=== PATIENT | female | born 1930 | race Caucasian/White ===

== ENCOUNTER 2017-05-25 16:08 | Inpatient (IN) | payer OTHER, BC ==
--- NOTE | 2017-05-25 16:44 | PDOC ---
History of Present Illness <Ludmila Guevara - Last Filed: 05/25/17 18:48> - History of Present Illness Initial Comments: 05/25/17 19:08 The patient is a 86 year old female, with a significant past medical history of AFib(on coumadin), hypertension, hypothyroidism, anemia, osteoarthritis, CKD, and GERD, who presents to the emergency department from home s/p mechanical fall at approximately 05:00. The patient reports she was transferring from her wheelchair to her commode, when suddenly her right leg slipped under her left leg, she lost her balance and landed on her right knee. She denies any head trauma, changes in vision, or LOC. Patient reports associated right knee pain, but denies any right hip pain, neck or back pain. Patient reports she was unable to walk after her fall, and states her son had to help her transfer into her bed after the fall. Patient reports taking pain medications with minimal relief. Patient reports she is able to ambulate with a walker at baseline. She denies any fever, chills, headache, dizziness, or lightheadedness. She denies any chest pain, shortness of breath, diaphoresis, palpitations, leg pain, or lower extremity edema. She denies any recent travel or sick contacts. Allergies: Latex Past Surgical History: Right hip replacement, right total knee replacement Social History: Former smoker. No ETOH or recreational drug use. PCP: Dr. Ceron <Gatito Kahn - Last Filed: 05/25/17 20:02> - General Chief Complaint: Injury Stated Complaint: FALL Time Seen by Provider: 05/25/17 16:23 Past History <Ludmila Guevara - Last Filed: 05/25/17 18:48> - Past Medical History Anemia: No Asthma: No Cancer: No Cardiac Disorders: Yes (ATRIAL FIBRILLATION) CVA: No COPD: No CHF: No Dementia: (FORGETFUL AT TIMES,) Diabetes: No GI Disorders: No Disorders: No HTN: Yes Hypercholesterolemia: No Liver Disease: No Seizures: No Thyroid Disease: No - Surgical History Abdominal Surgery: No Appendectomy: No Cardiac Surgery: No Cholecystectomy: No Lung Surgery: No Neurologic Surgery: No Orthopedic Surgery: Yes (right total knee replacement) - Immunization History Td Vaccination: (UNKNOWN) Immunization Up to Date: No - Psycho/Social/Smoking Cessation Hx Anxiety: No Suicidal Ideation: No Smoking Status: Yes Smoking History: Never smoked Years of Tobacco Use: 30 Have you smoked in the past 12 months: No Number of Cigarettes Smoked Daily: 2 'Breaking Loose' booklet given: 08/15/15 Hx Alcohol Use: No Drug/Substance Use Hx: No Substance Use Type: None Hx Substance Use Treatment: No <Nassef,Yomna - Last Filed: 05/25/17 20:02> - Past Medical History Allergies/Adverse Reactions: Allergies Allergy/AdvReac Type Severity Reaction Status Date / Time latex Allergy Intermediate Itching Verified 05/25/17 16:48 AND RASH Home Medications: Ambulatory Orders Acetaminophen [Tylenol] 650 mg PO Q4HWA PRN 05/25/17 Amlodipine Besylate [Norvasc -] 10 mg PO DAILY 05/25/17 Bacitracin - [Bacitracin Topical Ointment -] 1 applic TP ASDIR 05/25/17 Docusate Sodium 200 mg PO DAILY 05/25/17 Escitalopram Oxalate [Lexapro -] 5 mg PO DAILY 05/25/17 Ferrous Sulfate [Feosol] 325 mg PO DAILY 05/25/17 Furosemide [Lasix -] 40 mg PO DAILY 05/25/17 Hydralazine HCl [Apresoline -] 25 mg PO DAILY 05/25/17 Levofloxacin [Levaquin -] 250 mg PO DAILY 05/25/17 Multivit-Min/FA/Lycopen/Lutein [Centrum Silver Tablet] 1 each PO DAILY 05/25/17 Potassium Chloride 40 meq PO DAILY 05/25/17 Sennosides/Docusate Sodium [Senna Laxative Tablet] 1 each PO BID 05/25/17 Spironolactone [Aldactone] 25 mg PO DAILY 05/25/17 Trazodone HCl 50 mg PO DAILY 05/25/17 Warfarin Sodium 1 mg PO ASDIR 05/25/17 Warfarin Sodium [Coumadin] 6 mg PO DAILY 05/25/17 Zolpidem Tartrate [Ambien] 10 mg PO DAILY 05/25/17 Review of Systems - Review of Systems Comments:: 05/25/17 19:09 GENERAL/CONSTITUTIONAL: No fever or chills. No weakness. HEAD, EYES, EARS, NOSE AND THROAT: No change in vision. No ear pain or discharge. No sore throat. CARDIOVASCULAR: No chest pain or shortness of breath. RESPIRATORY: No cough, wheezing, or hemoptysis. GASTROINTESTINAL: No nausea, vomiting, diarrhea or constipation. GENITOURINARY: No dysuria, frequency, or change in urination. MUSCULOSKELETAL: Yes: +Right knee pain. No other joint or muscle swelling or pain. No neck or back pain. SKIN: No rash NEUROLOGIC: No headache, vertigo, loss of consciousness, or change in strength/ sensation. ENDOCRINE: No increased thirst. No abnormal weight change. HEMATOLOGIC/LYMPHATIC: No anemia, easy bleeding, or history of blood clots. ALLERGIC/IMMUNOLOGIC: No hives or skin allergy. <NassedarrenYomna - Last Filed: 05/25/17 20:02> *Physical Exam - Vital Signs Last Vital Signs Temp Pulse Resp BP Pulse Ox 98.1 F 76 16 114/67 98 05/25/17 16:40 05/25/17 16:40 05/25/17 16:40 05/25/17 16:40 05/25/17 16:40 <Ludmila Guevara - Last Filed: 05/25/17 18:48> - Physical Exam Comments: 05/25/17 19:09 GENERAL: Awake, alert, and fully oriented, in no acute distress HEAD: No signs of trauma EYES: PERRLA, EOMI, sclera anicteric, conjunctiva clear ENT: Auricles normal inspection, hearing grossly normal, nares patent, oropharynx clear without exudates. Moist mucosa NECK: Normal ROM, supple, no lymphadenopathy, JVD, or masses LUNGS: Breath sounds equal, clear to auscultation bilaterally. No wheezes, and no crackles HEART: Regular rate and rhythm, normal S1 and S2, no murmurs, rubs or gallops ABDOMEN: Soft, nontender, normoactive bowel sounds. No guarding, no rebound. No masses EXTREMITIES: large deformity noted distal to the R knee, no open wounds, DP and PT pulses weakly palpable, but audible on doppler and symmetric. Normal range of motion, no edema. No clubbing or cyanosis. No cords, erythema, or tenderness. NEUROLOGICAL: Normal speech, cranial nerves intact, negative pronator drift, 5/ 5 strength UE and LLE, 5/5 dorsi and plantar flexion in RLE, flexion in knee deferred, 5/5 in R hip extension with full ROM, normal sensation to light touch in all 4 extremities, normal cerebellar exam, normal reflexes and tone, gait deferred SKIN: 2x3cm ecchymosis to the right lower back. Warm, Dry, normal turgor, no rashes or lesions noted. <Gatito Kahn - Last Filed: 05/25/17 20:02> ED Treatment Course - LABORATORY CBC & Chemistry Diagram: 05/25/17 17:00 05/25/17 17:00 - ADDITIONAL ORDERS Additional order review: Laboratory Results 05/25/17 05/25/17 05/25/17 17:00 17:00 17:00 INR 2.74 H D PTT (Actin FS) Sodium Potassium Chloride Carbon Dioxide Anion Gap BUN Creatinine Creat Clearance w eGFR Random Glucose Calcium Magnesium 2.1 Total Bilirubin AST ALT Alkaline Phosphatase Total Protein Albumin Blood Type A POSITIVE Antibody Screen Negative 05/25/17 05/25/17 17:00 17:00 INR PTT (Actin FS) 53.1 H D Sodium 135 L Potassium 5.5 H D Chloride 106 Carbon Dioxide 22 Anion Gap 7 L BUN 39 H D Creatinine 1.8 H D Creat Clearance w eGFR 26.68 Random Glucose 131 H D Calcium 9.1 Magnesium Total Bilirubin 0.7 D AST 30 D ALT 20 D Alkaline Phosphatase 104 D Total Protein 7.0 D Albumin 3.6 D Blood Type Antibody Screen 05/25/17 17:00 RBC 4.46 D MCV 86.4 MCHC 33.1 RDW 15.0 MPV 7.4 L Neutrophils % 91.5 H D Lymphocytes % 3.0 L D Monocytes % 5.0 D Eosinophils % 0.1 D Basophils % 0.4 - RADIOLOGY Radiograph Interpretation: 05/25/17 18:48 EXAM: X-Ray Hip and Pelvis/ Right leg INTERPRETED BY: Dr. Kahn IMPRESSION: Right tibia fracture <Ludmila Guevara - Last Filed: 05/25/17 18:48> - LABORATORY CBC & Chemistry Diagram: 05/25/17 17:00 05/25/17 17:00 <Gatito Kahn - Last Filed: 05/25/17 20:02> Medical Decision Making - Medical Decision Making 05/25/17 18:34 First call placed to Dr. Gutierrez at 18:35. Awaiting call back. Case discussed with Dr. Gutierrez at 18:39. First call placed to Dr. Grayson's answering service at 16:41. <Ludmila Guevara - Last Filed: 05/25/17 18:48> - Medical Decision Making 05/25/17 17:09 86-year-old female with multiple medical problems including atrial fibrillation on Coumadin presents with leg pain after she slipped and fell. Exam with large deformity just distal to her R knee replacement. Pt is otherwise neurovascularly intact. Likely closed tib-fib fx. -labs -XR -pain control -wade -ortho c/s -likely admit 05/25/17 19:17 XR with fracture. Spoke with Dr. Gutierrez who will take pt to OR tomorrow AM. Hospitalist microblogged for admission, awaiting call back 05/25/17 19:[address] Rios who will assume care of the patient. <Gatito Kahn - Last Filed: 05/25/17 20:02> *DC/Admit/Observation/Transfer - Attestations Scribe Attestion: 05/25/17 18:34 Documentation prepared by Ludmila Guevara, acting as quality engineer medical device for Gatito Kahn MD. <Ludmila Guevara - Last Filed: 05/25/17 18:48> - Discharge Dispostion Admit: Yes - Attestations Physician Attestion: 05/25/17 20:02 I, Dr. Gatito Kahn MD, attest that this document has been prepared under my direction and personally reviewed by me in its entirety. I further attest, that it accurately reflects all work, treatment, procedures and medical decision -making performed by me. <Gatito Kahn - Last Filed: 05/25/17 20:02> Diagnosis at time of Disposition: Fracture of tibia Qualifiers: Encounter type: initial encounter Tibia location: proximal Fracture type: closed Fracture morphology: unspecified fracture morphology Laterality: right Qualified Code(s): S82.101A - Unspecified fracture of upper end of right tibia, initial encounter for closed fracture - Discharge Dispostion Condition at time of disposition: Stable
[2017-05-25 17:31] LABS: BASOPHIL 0.4 % (0-2.0); EOSINOPHIL 0.1 % (0-4.5); MCH 28.6 pg (25.7-33.7); MCHC 33.1 g/dl (32.0-36.0); MEAN CELL VOLUME 86.4 fl (80-96); MEAN PLT VOLUME 7.4 fl (7.5-11.1); NEUTROPHILS 91.5 % (42.8-82.8); PLATELET COUNT 227 K/MM3 (134-434); WHITE BLOOD COUNT 15.3 K/mm3 (4.0-10.0)
[2017-05-25 17:51] LABS: INR 2.74 (0.82-1.09); PROTHROMBIN TIME (PATIENT) 30.8 SEC (9.98-11.88)
[2017-05-25 18:20] LABS: ALBUMIN 3.6 g/dl (3.4-5.0); ALK PHOS 104 U/L (45-117); ANION GAP 7 (8-16); BILIRUBIN,TOTAL 0.7 mg/dL (0.2-1.0); CALCIUM 9.1 mg/dL (8.5-10.1); CO2 22 mmol/L (21-32); CREATININE 1.8 mg/dL (0.55-1.02); GLUCOSE,RANDOM 131 mg/dL (74-106); SGPT/ALT 20 U/L (12-78)
[2017-05-25 18:24] LABS: SGOT/AST 30 U/L (15-37)
[2017-05-25 18:39] LABS: PLATELET COMMENT2 NO CLOTTING DETECTED; PLATELET ESTIMATE ADEQUATE (NORMAL)
[2017-05-25] MEDS ORDERED: ONDANSETRON 4 MG/2 ML VIAL IVPB PRN (19:21)
--- NOTE | 2017-05-25 19:26 | HP ---
Admitting History and Physical - Admission Chief Complaint: knee pain/ fx, fall History of Present Illness: 86 year old female, with a significant past medical history of AFib(on coumadin) , hypertension, hypothyroidism, anemia, osteoarthritis, CKD, and GERD, who presents to the emergency department from home s/p mechanical fall at approximately 05:00. Denies hitting head or lOC. Reports pain to Right leg 4-5/ 10 exc with movement. Denies sob, cp, heart palps, n/v/f/c. Denies blood in stools or urine. Denies hx of cva, DC, chf. PMH/PSH: AFib(on coumadin), hypertension, hypothyroidism, anemia, osteoarthritis , CKD, and GERD, Right knee arthroplasty, femur fx repair, Right 2nd toe bunion surgery. Social- Former smoker, denies alcohol. Lives alone Famhx - NC Ros neg except for hpi PCP- Dr Ceron, angelique Cards- Dr. Muhammad Pex Gen- in nad alert Hent- at/nc, carisa, neck supple, trachea midline Resp- lungs ctab, no cough, no cyanosis, no rales, no ronchi Cards- s1s2 heard, no JVD, irreg rhythm, palpable pedeal pulses jocelin Skin- erythema to right lower leg, skin warm jocelin feet Musk- deformity to right casarez, right casarez swelling and redness. normal bue arom. diminished right knee arom. normal flexion ext of right ankle. neuro- sensation intact jocelin lowr ext, speech clear, no seizures, cn 2-12 grossly intact... Psych- cooperative, no agitation Prob list R tib fracture afib on coumadin htn ckd right knee arthroplasty leukocytosis hyperkalemia imaging cxr reviewed knee x ray reviewed pelvis x ray reviewed A/p-86 year old female, with a significant past medical history of AFib(on coumadin), hypertension, hypothyroidism, anemia, osteoarthritis, CKD, and GERD, who presents s/p mechanical fall, right knee pain and tibia fracture. 1. R tibia fracture s/p mechanical fall Right knee x ray with tibia fracture ortho consult pain control likely OR so will hold coumadin leg elevation monitor neurovascular status 2. afib on coumadin will hold given likely OR monitor INR given 5mg vitamin K 3. Htn (stable) B/P acceptable Hold diuretics 4. Leukocytosis ? stress v infection Monitor labs f/u Uacs Cxr looks ok by my eye 5. Mild Hyperkalemia ? 2/2 meds Hold home Aldactone and supplemental K+ Recheck BMP at 11P tonight 6. ?Amara on CKD possibly related to diuretics Cr baseline appears to be ~1.1- 1.4 Monitor labs Check Urine lytes Hold Diuretics Gentle hydration 7. ?UTI Asymptomatic bacteruria Start CTX Await ucs DVT prophy SCD, hold chemoprophy 2/2 anticipatory surgery FEN NPO after midnight dispo- await further input from ortho. needs > 2mn stay for tibia fracture - Past Medical History Cardiovascular: Yes: AFIB, Aneurysm, HTN, Hyperlipdemia Musculoskeletal: Yes: Chronic low back pain Endocrine: Yes: Hypothyroidism - Past Surgical History Past Surgical History: Yes: Joint Replacement - Smoking History Smoking history: Never smoked Have you smoked in the past 12 months: No Aproximately how many cigarettes per day: 2 - Alcohol/Substance Use Hx Alcohol Use: No History of Substance Use: reports: None - Social History ADL: Independent History of Recent Travel: No Home Medications - Allergies Allergies/Adverse Reactions: Allergies Allergy/AdvReac Type Severity Reaction Status Date / Time latex Allergy Intermediate Itching Verified 05/25/17 16:48 AND RASH - Home Medications Home Medications: Ambulatory Orders Bacitracin - [Bacitracin Topical Ointment -] 1 applic TP ASDIR 05/25/17 Furosemide [Lasix -] 40 mg PO DAILY 05/25/17 Hydralazine HCl [Apresoline -] 25 mg PO DAILY 05/25/17 Multivit-Min/FA/Lycopen/Lutein [Centrum Silver Tablet] 1 each PO DAILY 05/25/17 Spironolactone [Aldactone -] 25 mg PO DAILY 05/25/17 Zolpidem Tartrate [Ambien] 10 mg PO DAILY 05/25/17 Acetaminophen [Tylenol .Regular Strength -] 650 mg PO Q4HWA PRN #30 tablet 05/27 Amlodipine Besylate [Norvasc -] 10 mg PO DAILY tablet 05/27/17 Ceftriaxone [Rocephin -] 1 gm IVPB DAILY vial 05/27/17 Docusate Sodium [Colace -] 200 mg PO DAILY #30 cap 05/27/17 Escitalopram Oxalate [Lexapro -] 5 mg PO DAILY #30 tablet 05/27/17 Ferrous Sulfate [Feosol] 325 mg PO DAILY #30 tab 05/27/17 Metoprolol Succinate [Toprol XL -] 25 mg PO DAILY #30 tab 05/27/17 Ondansetron Injection [Zofran Injection] 4 mg IVPB Q4H PRN #10 vial 05/27/17 Oxycodone HCl [Roxicodone -] 5 mg PO Q4H PRN #10 tablet NS MDD 4 05/27/17 Pantoprazole Sodium [Protonix -] 40 mg PO DAILY #30 tab 05/27/17 Sennosides/Docusate Sodium [Pericolace -] 1 tablet PO BID #30 tablet 05/27/17 Trazodone HCl [Desyrel -] 50 mg PO HS #30 tablet 05/27/17 Family Disease History - Family Disease History Family Disease History: Heart Disease: Mother Physical Examination Vital Signs: Vital Signs Temperature 98.1 F 05/25/17 16:40 Pulse Rate 76 05/25/17 16:40 Respiratory Rate 16 05/25/17 16:40 Blood Pressure 114/67 05/25/17 16:40 O2 Sat by Pulse Oximetry (%) 98 05/25/17 16:40 Labs: CBC, BMP 05/25/17 17:00 05/25/17 17:00 Visit type - Emergency Visit Emergency Visit: Yes ED Registration Date: 05/25/17 Care time: The patient presented to the Emergency Department on the above date and was hospitalized for further evaluation of their emergent condition. - New Patient This patient is new to me today: Yes Date on this admission: 05/29/17 - Critical Care Critical Care patient: No
[2017-05-25] MEDS ORDERED: SODIUM CHLORIDE 1,000 ML IV SCH (19:45)
[2017-05-25 19:47] LABS: URINE APPEARANCE CLOUDY; URINE BILIRUBIN NEGATIVE (NEGATIVE); URINE BLOOD 2+ (NEGATIVE); URINE COLOR YELLOW; URINE GLUCOSE (UA) NEGATIVE (NEGATIVE); URINE KETONE NEGATIVE (NEGATIVE); URINE NITRITE NEGATIVE (NEGATIVE); URINE UROBILINOGEN NEGATIVE mg/dL (0.2-1.0)
[2017-05-25 19:48] LABS: URINE LEUK ESTERASE 3+ (NEGATIVE); URINE PROTEIN 2+ (NEGATIVE)
[2017-05-25 19:51] LABS: URINE BACTERIA MANY /hpf (NONE SEEN); URINE MUCUS RARE; URINE RBC 10 /hpf (0-3); URINE WBC 220 /hpf (3-5); YEAST MANY
[2017-05-25] MEDS ORDERED: PHYTONADIONE 5 MG TABLET PO ONE (19:59)
[2017-05-25] MEDS ORDERED: ACETAMINOPHEN 325 MG TABLET (FP) ONE (20:00)
[2017-05-25] MEDS ORDERED: ONDANSETRON 4 MG/2 ML VIAL ONE (20:01)
[2017-05-25] MEDS ORDERED: oxyCODONE HCL 5 MG TABLET ONE (20:01)
[2017-05-25] MEDS: oxyCODONE HCL 5 MG TABLET PO PRN (20:02)
[2017-05-25] MEDS ORDERED: PHYTONADIONE 5 MG TABLET ONE (20:13)
[2017-05-25 22:55] LABS: ANION GAP 9 (8-16); CALCIUM 8.5 mg/dL (8.5-10.1); CO2 20 mmol/L (21-32); CREATININE 1.7 mg/dL (0.55-1.02); GLUCOSE,RANDOM 124 mg/dL (74-106)
[2017-05-25] MEDS ORDERED: QUEtiapine FUMARATE 25 MG TABLET (FP) PO ONE (23:23)
[2017-05-25] MEDS ORDERED: SODIUM POLYSTYRENE SULFONATE 15 GM/60 ML BOTTLE PO ONE (23:26)
[2017-05-25 23:48] VITALS: BMI 28.6
[2017-05-26] MEDS: ACETAMINOPHEN 325 MG TABLET (FP) PO PRN ×4 (00:03→22:39)
[2017-05-26] MEDS: oxyCODONE HCL 5 MG TABLET PO PRN ×4 (00:03→22:39)
[2017-05-26] MEDS ORDERED: CEFTRIAXONE 1 GM in DEXTROSE 5%-WATER - 50 ML IVPB ONE (01:45)
[2017-05-26] MEDS ORDERED: cefTRIAXone SODIUM 1 GM VIAL ONE ×2 (02:53→20:51)
[2017-05-26] MEDS ORDERED: DEXTROSE 5%-WATER - 50 ML IVPB ONE ×2 (02:54→20:51)
[2017-05-26 07:28] LABS: BASOPHIL 0.4 % (0-2.0); EOSINOPHIL 0.5 % (0-4.5); MCH 29.2 pg (25.7-33.7); MCHC 33.7 g/dl (32.0-36.0); MEAN CELL VOLUME 86.6 fl (80-96); MEAN PLT VOLUME 7.1 fl (7.5-11.1); NEUTROPHILS 84.6 % (42.8-82.8); PLATELET COUNT 159 K/MM3 (134-434); RDW 14.8 % (11.6-15.6); WHITE BLOOD COUNT 10.7 K/mm3 (4.0-10.0)
[2017-05-26 07:38] LABS: INR 2.67 (0.82-1.09)
[2017-05-26 08:03] LABS: ANION GAP 9 (8-16); CALCIUM 8.1 mg/dL (8.5-10.1); CO2 23 mmol/L (21-32); CREATININE 1.9 mg/dL (0.55-1.02); GLUCOSE,RANDOM 113 mg/dL (74-106)
[2017-05-26] MEDS: ESCITALOPRAM OXALATE 10 MG TABLET (FP) PO SCH (09:32)
--- NOTE | 2017-05-26 09:47 | EKG ---
Test Reason : Blood Pressure : / mmHG Vent. Rate : 069 BPM Atrial Rate : 090 BPM P-R Int : 000 ms QRS Dur : 080 ms QT Int : 338 ms P-R-T Axes : 000 -17 115 degrees QTc Int : 362 ms POOR DATA QUALITY, INTERPRETATION MAY BE ADVERSELY AFFECTED ATRIAL FIBRILLATION SEPTAL INFARCT , AGE UNDETERMINED ABNORMAL ECG Confirmed by MD KOFFI, AIDA ([id number]) on 05/26/2017 9:47:00 AM Referred By: Confirmed By:AIDA RAIN MD
[2017-05-26 09:50] LABS: URINE CREATININE 57.2 mg/dL (20-320)
--- NOTE | 2017-05-26 10:31 | CONSULT ---
Consult - text type - Consultation Consultation Note: FULL CONSULT DICTATED IMP: RIGHT PERIPROSTHETIC PROXIMAL TIBIAL SHAFT FX PLAN: TRANSFER BACK TO HEALTH SYSTEM FOR DEFINITIVE TREATMENT
[2017-05-26] MEDS ORDERED: ACETAMINOPHEN 325 MG TABLET (FP) PO PRN (10:46)
--- NOTE | 2017-05-26 10:48 | PN ---
Physical Exam: SUBJECTIVE: Patient seen and examined OBJECTIVE: Vital Signs Period Temp Pulse Resp BP Sys/Toro Pulse Ox Last 24 Hr 97.6 F-98.9 F 71-100 18-21 110-129/59-75 97-97 GENERAL: The patient is awake, alert, and fully oriented, in no acute distress. HEAD: Normal with no signs of trauma. EYES: PERRL, extraocular movements intact, sclera anicteric, conjunctiva clear. No ptosis. ENT: Ears normal, nares patent, oropharynx clear without exudates, moist mucous membranes. NECK: Trachea midline, full range of motion, supple. LUNGS: Breath sounds equal, clear to auscultation bilaterally, no wheezes, no crackles, no accessory muscle use. HEART: Regular rate and rhythm, S1, S2 without murmur, rub or gallop. ABDOMEN: Soft, nontender, nondistended, normoactive bowel sounds, no guarding, no rebound, no hepatosplenomegaly, no masses. EXTREMITIES: 2+ pulses, warm, well-perfused, no edema. NEUROLOGICAL: Cranial nerves II through XII grossly intact. Normal speech, gait not observed. PSYCH: Normal mood, normal affect. SKIN: Warm, dry, normal turgor, no rashes or lesions noted Laboratory Results - last 24 hr 05/25/17 05/26/17 05/26/17 22:13 06:00 06:00 WBC 10.7 H D RBC 3.49 L D Hgb 10.2 L D Hct 30.2 L D MCV 86.6 MCH 29.2 MCHC 33.7 RDW 14.8 Plt Count 159 D MPV 7.1 L Neutrophils % 84.6 H Lymphocytes % 8.5 D Monocytes % 6.0 Eosinophils % 0.5 D Basophils % 0.4 INR 2.67 H Sodium 136 Potassium 5.5 H Chloride 107 Carbon Dioxide 20 L Anion Gap 9 BUN 39 H Creatinine 1.7 H Random Glucose 124 H Calcium 8.5 05/26/17 06:00 WBC RBC Hgb Hct MCV MCH MCHC RDW Plt Count MPV Neutrophils % Lymphocytes % Monocytes % Eosinophils % Basophils % INR Sodium 138 Potassium 4.6 Chloride 106 Carbon Dioxide 23 Anion Gap 9 BUN 40 H Creatinine 1.9 H Random Glucose 113 H Calcium 8.1 L Active Medications Generic Name Dose Route Start Last Admin Trade Name Freq PRN Reason Stop Dose Admin Acetaminophen 650 mg 05/25/17 19:22 05/26/17 09:30 Tylenol - PO 650 mg Q4H PRN Administration FEVER OR PAIN Escitalopram Oxalate 5 mg 05/26/17 10:00 05/26/17 09:32 Lexapro - PO 5 mg DAILY EUGENE Administration Sodium Chloride 1,000 mls @ 50 mls/hr 05/25/17 19:45 05/25/17 20:02 Normal Saline - IV 05/26/17 19:45 50 mls/hr ASDIR EUGENE Administration Ceftriaxone Sodium 1 gm/ 50 mls @ 100 mls/hr 05/26/17 20:00 Dextrose IVPB DAILY EUGENE Ondansetron HCl 4 mg 05/25/17 19:21 05/25/17 20:03 Zofran Injection IVPB 4 mg Q4H PRN Administration NAUSEA AND/OR VOMITING Oxycodone HCl 5 mg 05/25/17 19:22 05/26/17 09:32 Roxicodone - PO 5 mg Q4H PRN Administration PAIN ASSESSMENT/PLAN: 86 year-old female with a PMH significant for HTN, afib on coumadin, anemia, hypothyroidism, anemia, osteoarthritis, CKD, and GERD; PSH significant for right knee arthroplasty and right femur fracture repair. Admitted for fractured right tibia.
--- NOTE | 2017-05-26 10:53 | PN ---
Physical Exam: SUBJECTIVE: Patient seen and examined at bedside. Received pain medication a short while ago, feels comfortable. OBJECTIVE: Vital Signs Period Temp Pulse Resp BP Sys/Toro Pulse Ox Last 24 Hr 97.6 F-98.9 F 71-100 18-21 110-129/59-75 97-97 GENERAL: The patient is awake, alert, and fully oriented, in no acute distress. HEAD: Normal with no signs of trauma. EYES: PERRL, extraocular movements intact, sclera anicteric, conjunctiva clear. No ptosis. LUNGS: Breath sounds equal, clear to auscultation bilaterally, no wheezes, no crackles, no accessory muscle use. HEART: Regular rate and rhythm, S1, S2 without murmur, rub or gallop. ABDOMEN: Soft, nontender, nondistended, normoactive bowel sounds, no guarding, no rebound, no hepatosplenomegaly, no masses. RIGHT LOWER EXTREMITY: 2+ DP pulses, warm, well-perfused; leg is angulated and rotated outward at the knee with swelling noted around the knee; 5/5 motor and sensory in toes NEUROLOGICAL: Cranial nerves II through XII grossly intact. Normal speech, gait not observed. Laboratory Results - last 24 hr 05/25/17 05/26/17 05/26/17 22:13 06:00 06:00 WBC 10.7 H D RBC 3.49 L D Hgb 10.2 L D Hct 30.2 L D MCV 86.6 MCH 29.2 MCHC 33.7 RDW 14.8 Plt Count 159 D MPV 7.1 L Neutrophils % 84.6 H Lymphocytes % 8.5 D Monocytes % 6.0 Eosinophils % 0.5 D Basophils % 0.4 INR 2.67 H Sodium 136 Potassium 5.5 H Chloride 107 Carbon Dioxide 20 L Anion Gap 9 BUN 39 H Creatinine 1.7 H Random Glucose 124 H Calcium 8.5 05/26/17 06:00 WBC RBC Hgb Hct MCV MCH MCHC RDW Plt Count MPV Neutrophils % Lymphocytes % Monocytes % Eosinophils % Basophils % INR Sodium 138 Potassium 4.6 Chloride 106 Carbon Dioxide 23 Anion Gap 9 BUN 40 H Creatinine 1.9 H Random Glucose 113 H Calcium 8.1 L Active Medications Generic Name Dose Route Start Last Admin Trade Name Freq PRN Reason Stop Dose Admin Acetaminophen 650 mg 05/25/17 19:22 05/26/17 09:30 Tylenol - PO 650 mg Q4H PRN Administration FEVER OR PAIN Acetaminophen 650 mg 05/26/17 10:46 Tylenol - PO Q4HWA PRN PAIN Amlodipine Besylate 10 mg 05/27/17 10:00 Norvasc - PO DAILY [facility] Docusate Sodium 200 mg 05/26/17 11:00 Colace - PO DAILY [facility] Escitalopram Oxalate 5 mg 05/26/17 10:00 05/26/17 09:32 Lexapro - PO 5 mg DAILY EUGENE Administration Sodium Chloride 1,000 mls @ 50 mls/hr 05/25/17 19:45 05/25/17 20:02 Normal Saline - IV 05/26/17 19:45 50 mls/hr ASDIR EUGENE Administration Ceftriaxone Sodium 1 gm/ 50 mls @ 100 mls/hr 05/26/17 20:00 Dextrose IVPB DAILY [facility] Non-Formulary Medication 325 mg 05/27/17 10:00 Ferrous Sulfate [Feosol] PO DAILY [facility] Ondansetron HCl 4 mg 05/25/17 19:21 05/25/17 20:03 Zofran Injection IVPB 4 mg Q4H PRN Administration NAUSEA AND/OR VOMITING Oxycodone HCl 5 mg 05/25/17 19:22 05/26/17 09:32 Roxicodone - PO 5 mg Q4H PRN Administration PAIN Senna/Docusate Sodium 1 tablet 05/26/17 11:00 Pericolace - PO BID EUGENE Trazodone HCl 50 mg 05/27/17 10:00 Desyrel - PO DAILY [facility] ASSESSMENT/PLAN: 86 year-old female with a PMH significant for HTN, afib on coumadin, hypothyroidism, anemia, osteoarthritis, CKD, and GERD, and a PSH signficant for right knee arthroplasty, and right femur fracture repair. Admitted for right periprosthetic proximal tibial shaft fracture. Right periprosthetic proximal tibial shaft fracture --seen and evaluated by Dr. Gutierrez --plan is to transfer to [facility] for surgery --pain presently well-managed with PO pain meds --bowel regimen Acute on chronic renal insufficiency --Cr 1.9, baseline 1.2 --FeNa 1.0% --had been on home Lasix and spironolactone, both on hold --gentle IV fluids --renal consult Hypertension --continue amolodipine Atrial fibrillation on coumadin --INR 2.67; hold coumadin for possible surgery tomorrow Hypothyroidism --according to Dr. Ceron patient has been on meds in the past; not listed on med rec on this admission --f/u TSH level Anemia --Hgb 12.8-->10.2 but but may be dilutional and 10.2 is closer to baseline --continue to monitor Osteoarthritis --stable GERD --protonix Fluids: NS @ 50mL/hr Electrolytes: replete as indicated Nutrition: sodium-controlled; NPO after midnight DVT prophylaxis: INR therapeutic Visit type - Emergency Visit Emergency Visit: Yes ED Registration Date: 05/25/17 Care time: The patient presented to the Emergency Department on the above date and was hospitalized for further evaluation of their emergent condition. - New Patient This patient is new to me today: Yes Date on this admission: 05/26/17 - Critical Care Critical Care patient: No
--- NOTE | 2017-05-26 11:55 | CON.NEP ---
Consult Consult Specialty:: nephrology Reason for Consultation:: ckd/roseanne - History of Present Illness History of Present Illness: 86 year old female, with a significant past medical history of AFib(on coumadin) , hypertension, hypothyroidism, anemia, osteoarthritis, CKD, and GERD, who presents to the emergency department from home s/p mechanical fall at approximately 05:00 yesterday. Denies hitting head or lOC. Reports pain to Right leg 4-5/10 exc with movement. Denies sob, cp, heart palps, n/v/f/c. Denies blood in stools or urine. Denies hx of cva, [place], chf. She says she just fell because she missed a guard rail. Has a history of post op ROSEANNE and was previously told she might need dialysis but she refused. Has no problem urinating. Has had chronic infections and was told she needs to be on a medication for life - History Source History Provided By: Patient, Medical Record - Past Medical History Cardio/Vascular: Yes: AFIB, Aneurysm, HTN, Hyperlipdemia Musculoskeletal: Yes: Chronic low back pain Endocrine: Yes: Hypothyroidism - Past Surgical History Past Surgical History: Yes: Joint Replacement - Alcohol/Substance Use Hx Alcohol Use: No History of Substance Use: reports: None - Smoking History Smoking history: Never smoked Have you smoked in the past 12 months: No Aproximately how many cigarettes per day: 2 - Social History ADL: Independent History of Recent Travel: No Home Medications - Allergies Allergies/Adverse Reactions: Allergies Allergy/AdvReac Type Severity Reaction Status Date / Time latex Allergy Intermediate Itching Verified 05/25/17 16:48 AND RASH - Home Medications Home Medications: Ambulatory Orders Acetaminophen [Tylenol] 650 mg PO Q4HWA PRN 05/25/17 Amlodipine Besylate [Norvasc -] 10 mg PO DAILY 05/25/17 Bacitracin - [Bacitracin Topical Ointment -] 1 applic TP ASDIR 05/25/17 Docusate Sodium 200 mg PO DAILY 05/25/17 Escitalopram Oxalate [Lexapro -] 5 mg PO DAILY 05/25/17 Ferrous Sulfate [Feosol] 325 mg PO DAILY 05/25/17 Furosemide [Lasix -] 40 mg PO DAILY 05/25/17 Hydralazine HCl [Apresoline -] 25 mg PO DAILY 05/25/17 Levofloxacin [Levaquin -] 250 mg PO DAILY 05/25/17 Multivit-Min/FA/Lycopen/Lutein [Centrum Silver Tablet] 1 each PO DAILY 05/25/17 Potassium Chloride 40 meq PO DAILY 05/25/17 Sennosides/Docusate Sodium [Senna Laxative Tablet] 1 each PO BID 05/25/17 Spironolactone [Aldactone] 25 mg PO DAILY 05/25/17 Trazodone HCl 50 mg PO DAILY 05/25/17 Warfarin Sodium 1 mg PO ASDIR 05/25/17 Warfarin Sodium [Coumadin] 6 mg PO DAILY 05/25/17 Zolpidem Tartrate [Ambien] 10 mg PO DAILY 05/25/17 Family Disease History - Family Disease History Family Disease History: Heart Disease: Mother Review of Systems - Review of Systems Constitutional: reports: No Symptoms Eyes: reports: No Symptoms HENT: reports: No Symptoms Neck: reports: No Symptoms Cardiovascular: reports: No Symptoms Respiratory: reports: No Symptoms Gastrointestinal: reports: No Symptoms Genitourinary: reports: No Symptoms Breasts: reports: No Symptoms Reported Musculoskeletal: reports: Back Pain, Joint Pain Integumentary: reports: No Symptoms Neurological: reports: No Symptoms Endocrine: reports: No Symptoms Hematology/Lymphatic: reports: No Symptoms Psychiatric: reports: No Symptoms Nephrology Consult - Height Height: 5 ft 6 in - Weight Weight: 177 lb 4.8 oz - BMI Body Mass Index (BMI): 28.6 - Lab Results CBC,BMP: CBC, BMP 05/26/17 06:00 05/26/17 06:00 Anion Gap: Anion Gap Anion Gap 9 (8-16) 05/26/17 06:00 - Imaging Chest X-ray: Report Reviewed - Physical Examination Vital Signs: Vital Signs Temperature 97.6 F 05/26/17 08:32 Pulse Rate 71 05/26/17 08:32 Respiratory Rate 18 05/26/17 08:40 Blood Pressure 118/59 05/26/17 08:32 O2 Sat by Pulse Oximetry (%) 97 05/26/17 08:40 Constitutional: Yes: Well Nourished, No Distress Eyes: Yes: Conjunctiva Clear HENT: Yes: Atraumatic, Normocephalic Neck: Yes: Supple, Trachea Midline Cardiovascular: Yes: Pulse Irregular Respiratory: Yes: Regular, CTA Bilaterally Gastrointestinal: Yes: Normal Bowel Sounds, Soft Renal/: Yes: WNL Extremities: Yes: WNL Edema: No Integumentary: Yes: WNL Wound/Incision: Yes: Clean/Dry, Well Approximated Neurological: Yes: Alert, Oriented Psychiatric: Yes: Alert, Oriented Assessment/Plan IMPRESSION CKD- proteinuric now but had not been before. Possibly reflecting uti UTI htn s/p Tibial fracture echo from 2014 showed normal EF PLAN agree with ceftriaxone follow up cultures continue hydration cumadin on hold repeat renal sono MV
[2017-05-26] MEDS ORDERED: SODIUM CHLORIDE 1,000 ML IV SCH (12:15)
[2017-05-26] MEDS: SENNOSIDES/DOCUSATE COMBO (SENNA PLUS) TABLET (UD) PO SCH ×2 (12:24→22:36)
[2017-05-26] MEDS: PANTOPRAZOLE 40 MG TABLET (FP) PO SCH (12:24)
[2017-05-26] MEDS: DOCUSATE SODIUM 100 MG CAPSULE (FP) PO SCH (12:24)
--- NOTE | 2017-05-26 14:07 | CONS ---
DATE OF CONSULTATION: 05/26/2017 The patient is an 86-year-old female, well known to me. She is status post multiple fractures, first right hip, which was revised to a right total hip replacement, was subsequently revised to a long stem right hip replacement after a femur fracture, was subsequently revised to a complete femoral replacement after a distal femoral fracture above the total knee replacement. Subsequently it was infected and she was in the ICU for a long time but resolved that. Patient was walking, when she tripped and injured her right leg again, now complaining of pain in that right leg. On physical exam, she has swelling and tenderness in her right proximal tibia with ecchymosis from rotation. No pain in the hip femur, knee. Good motion of the ankle, neurovascularly intact. X-rays show a periprosthetic comminuted proximal tibial shaft fracture below the total femoral replacement component in the tibia with angulation and comminution. IMPRESSION: Fracture as described. PLAN: I will contact, with the family's help, Dr. Welsh at [facility], who did the distal femoral replacement, to arrange for transfer of this patient back to [facility] for possible revision surgery. MARILOU ERICKSON M.D. [id number]
[2017-05-26] MEDS: CEFTRIAXONE 1 GM in DEXTROSE 5%-WATER - 50 ML IVPB SCH (21:02)
[2017-05-26] MEDS ORDERED: traZODone HCL 50 MG TABLET (FP) PO SCH (22:30)
[2017-05-27 07:49] LABS: BASOPHIL 0.5 % (0-2.0); MCH 29.2 pg (25.7-33.7); MCHC 33.2 g/dl (32.0-36.0); MEAN CELL VOLUME 87.8 fl (80-96); MEAN PLT VOLUME 7.8 fl (7.5-11.1); NEUTROPHILS 86.1 % (42.8-82.8); PLATELET COUNT 167 K/MM3 (134-434); RDW 14.8 % (11.6-15.6); WHITE BLOOD COUNT 9.1 K/mm3 (4.0-10.0)
[2017-05-27 08:13] LABS: CALCIUM 8.5 mg/dL (8.5-10.1)
[2017-05-27 08:19] LABS: ALBUMIN 2.7 g/dl (3.4-5.0); ALK PHOS 83 U/L (45-117); ANION GAP 10 (8-16); BILIRUBIN,TOTAL 0.5 mg/dL (0.2-1.0); CO2 22 mmol/L (21-32); CREATININE 1.7 mg/dL (0.55-1.02); GLUCOSE,RANDOM 89 mg/dL (74-106); MAGNESIUM 2.2 mg/dL (1.8-2.4); SGOT/AST 19 U/L (15-37); SGPT/ALT 15 U/L (12-78); TOT PROT 5.9 g/dl (6.4-8.2)
--- NOTE | 2017-05-27 08:58 | PN ---
Progress Note (short form) - Note Progress Note: Ortho Pt seen and examined s/p periprosthetic proximal tibia fx PE- + deformity, + swelling, + ttp limited ROM, nvi a/p Long leg posterior splint applied Pt to be transferred to [facility] d/w DR. Gutierrez
--- NOTE | 2017-05-27 09:12 | PN ---
Progress Note (short form) - Note Progress Note: Patient seen and examined Chart reviewed. Patient known to me from previous outpatient care, but due to her complicated history, has not been back to my office in over a year. Currently supine in bed, alert and appropriate. Denies new hest discomfort or dyspnea Has not had cardiologic follow-up. Labs, radiologic procedures, medications and progress notes reviewed. Awaiting decision regarding possible transfer to [facility] for surgical repair. Selected Entries 05/26/17 05/27/17 21:00 06:00 Temperature 97.8 F Pulse Rate 84 Respiratory 20 Rate Blood Pressure 140/92 O2 Sat by Pulse 97 Oximetry (%) Oxygen Delivery Room Air Method Weight 185 lb Laboratory Tests 05/26/17 05/26/17 05/27/17 06:00 06:00 06:30 WBC 9.1 Hgb 11.0 Hct 33.0 Plt Count 167 INR 2.67 H Sodium Potassium Chloride Carbon Dioxide BUN Creatinine Random Glucose Calcium Magnesium Total Bilirubin AST ALT Alkaline Phosphatase Total Protein Albumin TSH 10.90 H D 05/27/17 06:30 WBC Hgb Hct Plt Count INR Sodium 140 Potassium 4.2 Chloride 108 H Carbon Dioxide 22 BUN 33 H Creatinine 1.7 H Random Glucose 89 D Calcium 8.5 Magnesium 2.2 Total Bilirubin 0.5 D AST 19 D ALT 15 D Alkaline Phosphatase 83 D Total Protein 5.9 L Albumin 2.7 L D TSH Chest Clear Cor Irregular Abd Soft, non-tender No new mass Ext Swelling and ecchymosis right proximal tibial area Neuro No new focal deficit Assessment and Plan New proximal right tibial fracture in the setting of multiple complicated surgical procedures on right leg, in addition to septic joint requiring prolonged antibiotic therapy, including daily oral antibiotic suppression [facility] transfer if feasible Chronic renal insufficiency 33/1.7 Renal note appreciated Ultrasound data reviewed with atrophic left kidney and moderately severe right hydronephrosis Will require urologic assessment ASHD with AFIB Cardiologic re-assessment Currently off of warfarin in preparation for possible surgery May need Lovenox or iv heparin Hypoalbuminemia Likely related to acute/chronic disease as well as nutritional factors Hypothyroid TSH elevated Would likely benefit form low dose levothyroxine replacement therapy HTN Stable HPL Stable Venous insufficiency Monitor Infrarenal AAA Not measured in several years Full extensive problem list as per old charts and office records
[2017-05-27] MEDS ORDERED: morphine CARPU-JECT 2 MG/1 ML DISP.SYRIN IVPUSH ONE (09:15)
[2017-05-27] MEDS ORDERED: amLODIPine BESYLATE 10 MG TABLET (FP) PO SCH (10:00)
[2017-05-27] MEDS ORDERED: cefTRIAXone SODIUM 1 GM VIAL ONE (10:00)
[2017-05-27] MEDS ORDERED: DEXTROSE 5%-WATER - 50 ML IVPB ONE (10:00)
[2017-05-27] MEDS ORDERED: FERROUS SO4 325 MG TABLET (FP) PO SCH (10:00)
[2017-05-27] MEDS ORDERED: traZODone HCL 50 MG TABLET (FP) PO SCH (10:00)
[2017-05-27] MEDS: SENNOSIDES/DOCUSATE COMBO (SENNA PLUS) TABLET (UD) PO SCH (10:07)
[2017-05-27] MEDS: DOCUSATE SODIUM 100 MG CAPSULE (FP) PO SCH (10:07)
[2017-05-27] MEDS: ESCITALOPRAM OXALATE 10 MG TABLET (FP) PO SCH (10:07)
[2017-05-27] MEDS: PANTOPRAZOLE 40 MG TABLET (FP) PO SCH (10:07)
[2017-05-27] MEDS: CEFTRIAXONE 1 GM in DEXTROSE 5%-WATER - 50 ML IVPB SCH (10:11)
--- NOTE | 2017-05-27 13:08 | CON.CARD ---
Consult Consult Specialty:: Cardiology Referred by:: Karan Ceron MD Reason for Consultation:: Pre-operative cardiovascular evaluation - History of Present Illness Chief Complaint: Post fall and right periprosthetic tibial fracture History of Present Illness: 86 year old female, with a significant past medical history of CAD, angina pectoris, diastolic dysfunction, persistent AFib on coumadin, hypertension/HCVD , hypothyroidism, hyperlipidemia, anemia, osteoarthritis, CKD, and GERD, sustained mechanical fall without head trauma or LOC sustaining right periprosthetic proximal tibial shaft fracture and given that she has had previous orthopedic treatment at [facility] awaits transfer for definitive treatment. She denies sob, cp, heart palps, near or true syncope, orthopnea, PND or LE edema. - History Source History Provided By: Patient Limitations to Obtaining History: No Limitations - Past Medical History Cardio/Vascular: Yes: AFIB, Aneurysm, HTN, Hyperlipdemia Musculoskeletal: Yes: Chronic low back pain Endocrine: Yes: Hypothyroidism - Past Surgical History Past Surgical History: Yes: Joint Replacement - Alcohol/Substance Use Hx Alcohol Use: No History of Substance Use: reports: None - Smoking History Smoking history: Never smoked Have you smoked in the past 12 months: No Aproximately how many cigarettes per day: 2 - Social History ADL: Independent History of Recent Travel: No Home Medications - Allergies Allergies/Adverse Reactions: Allergies Allergy/AdvReac Type Severity Reaction Status Date / Time latex Allergy Intermediate Itching Verified 05/25/17 16:48 AND RASH - Home Medications Home Medications: Ambulatory Orders Acetaminophen [Tylenol] 650 mg PO Q4HWA PRN 05/25/17 Amlodipine Besylate [Norvasc -] 10 mg PO DAILY 05/25/17 Bacitracin - [Bacitracin Topical Ointment -] 1 applic TP ASDIR 05/25/17 Docusate Sodium 200 mg PO DAILY 05/25/17 Escitalopram Oxalate [Lexapro -] 5 mg PO DAILY 05/25/17 Ferrous Sulfate [Feosol] 325 mg PO DAILY 05/25/17 Furosemide [Lasix -] 40 mg PO DAILY 05/25/17 Hydralazine HCl [Apresoline -] 25 mg PO DAILY 05/25/17 Levofloxacin [Levaquin -] 250 mg PO DAILY 05/25/17 Multivit-Min/FA/Lycopen/Lutein [Centrum Silver Tablet] 1 each PO DAILY 05/25/17 Potassium Chloride 40 meq PO DAILY 05/25/17 Sennosides/Docusate Sodium [Senna Laxative Tablet] 1 each PO BID 05/25/17 Spironolactone [Aldactone] 25 mg PO DAILY 05/25/17 Trazodone HCl 50 mg PO DAILY 05/25/17 Warfarin Sodium 1 mg PO ASDIR 05/25/17 Warfarin Sodium [Coumadin] 6 mg PO DAILY 05/25/17 Zolpidem Tartrate [Ambien] 10 mg PO DAILY 05/25/17 Family Disease History - Family Disease History Family Disease History: Heart Disease: Mother Review of Systems - Review of Systems Musculoskeletal: reports: Extremity Pain Vital Signs: Vital Signs Temperature 97.8 F 05/27/17 06:00 Pulse Rate 84 05/27/17 06:00 Respiratory Rate 20 05/27/17 09:00 Blood Pressure 140/92 05/27/17 06:00 O2 Sat by Pulse Oximetry (%) 97 05/27/17 09:00 Constitutional: Yes: No Distress, Calm Neck: Yes: Supple Respiratory: Yes: Regular, Diminished Gastrointestinal: Yes: Normal Bowel Sounds, Soft Cardiovascular: Yes: Pulse Irregular JVD: No Carotid Bruit: No Heart Sounds: Yes: S1, S2 Murmur: Yes: Systolic Murmur, Grade 2 Edema: No - Other Data Labs, Other Data: CBC, BMP 05/27/17 06:30 05/27/17 06:30 INR, PTT INR 2.67 (0.82-1.09) H 05/26/17 06:00 Afib @ 69 Ejection Fraction %: LVEF > or = 40 % Imaging - Results Chest X-ray: Report Reviewed (NAD) Problem List - Problems (1) Tibia fracture Code(s): S82.209A - UNSP FRACTURE OF SHAFT OF UNSP TIBIA, INIT FOR CLOS FX Qualifiers: Encounter type: initial encounter Tibia location: proximal Fracture type: closed Fracture morphology: unspecified fracture morphology Laterality: right Qualified Code(s): S82.101A - Unspecified fracture of upper end of right tibia, initial encounter for closed fracture (2) Abdominal aortic aneurysm Code(s): I71.4 - ABDOMINAL AORTIC ANEURYSM, WITHOUT RUPTURE Qualifiers: Presence of rupture: without rupture Qualified Code(s): I71.4 - Abdominal aortic aneurysm, without rupture (3) Atrial fibrillation Code(s): I48.91 - UNSPECIFIED ATRIAL FIBRILLATION Qualifiers: Atrial fibrillation type: chronic Qualified Code(s): I48.2 - Chronic atrial fibrillation (4) HTN (hypertension) Code(s): I10 - ESSENTIAL (PRIMARY) HYPERTENSION Qualifiers: Hypertension type: essential hypertension Qualified Code(s): I10 - Essential (primary) hypertension (5) Hypothyroidism Code(s): E03.9 - HYPOTHYROIDISM, UNSPECIFIED Qualifiers: Hypothyroidism type: unspecified Qualified Code(s): E03.9 - Hypothyroidism, unspecified (6) Diastolic dysfunction without heart failure Code(s): I51.9 - HEART DISEASE, UNSPECIFIED (7) Pre-operative cardiovascular examination Code(s): Z01.810 - ENCOUNTER FOR PREPROCEDURAL CARDIOVASCULAR EXAMINATION (8) Nzgai-zh-[id number] kidney injury Code(s): N17.9 - ACUTE KIDNEY FAILURE, UNSPECIFIED N18.9 - CHRONIC KIDNEY DISEASE, UNSPECIFIED (9) Hydronephrosis Code(s): N13.30 - UNSPECIFIED HYDRONEPHROSIS Qualifiers: Hydronephrosis type: unspecified Qualified Code(s): N13.30 - Unspecified hydronephrosis (10) Urinary tract infection due to extended-spectrum beta lactamase (ESBL) producing Escherichia coli Code(s): N39.0 - URINARY TRACT INFECTION, SITE NOT SPECIFIED A49.8 - OTHER BACTERIAL INFECTIONS OF UNSPECIFIED SITE Z16.12 - EXTENDED SPECTRUM BETA LACTAMASE (ESBL) RESISTANCE Assessment/Plan 1. Post mechanical fall with proximal right periprosthetic tibial fracture in the setting of multiple complicated surgical procedures on right leg, in addition to septic joint requiring prolonged antibiotic therapy, including daily oral antibiotic suppression for transfer to [facility] for further management 2. Pre-operative cardiovascular evaluation 3. CAD angina pectoris 4. Diastolic LV dysfunction with class I-II NYHA classification LV failure, compensated 5. Permanent atrial fibrillation [id number] score of 6 on Coumadin therapy with therapeutic INR 6. Hypertension 7. History of infrarenal AAA 8. Hypothyroidism 9. Anemia 10. Acute on CKD with moderate right hydronephrosis and atrophic left kidney 11. UTI PLAN: 1. Empiric antibiotic course as per the primary team 2. Continue to hold Cozaar, Lasix and Aldactone therapy pending renal fxn stabilization, urology input 3. Change Norvasc to Toprol XL 25 qd hemodynamics permitting 4. Continue to hold Coumadin pending surgery and may have to initiate Heparin as a bridge 5. Await transfer to [facility] for further management as outlined above 6. Given absence of symptoms of acute coronary syndrome, decompensated CHF or malignant arrhythmia, there are no absolute cardiovascular contraindications against proceeding with orthopedic repair of tibial fracture 7. Thank you for consultative opportunity
[2017-05-27 13:41] VITALS: BP 104/68; PULSE 92; TEMP 97.6
--- NOTE | 2017-05-27 14:47 | DS ---
Physical Examination Vital Signs: Vital Signs Temperature 97.6 F 05/27/17 13:36 Pulse Rate 92 H 05/27/17 13:36 Respiratory Rate 20 05/27/17 09:00 Blood Pressure 104/68 05/27/17 13:36 O2 Sat by Pulse Oximetry (%) 97 05/27/17 09:00 Constitutional: Yes: No Distress, Calm Cardiovascular: Yes: Pulse Irregular Respiratory: Yes: CTA Bilaterally Gastrointestinal: Yes: Normal Bowel Sounds, Soft Extremities: Yes: Other (swelling RLE at fracture sight) Neurological: Yes: Alert, Oriented Labs: CBC, BMP 05/27/17 06:30 05/27/17 06:30 Discharge Summary Reason For Visit: TIBIA FRACTURE Current Active Problems Tibia fracture (Acute) Qlodm-na-iawscvi kidney injury (Chronic) Diastolic dysfunction without heart failure (Chronic) Hydronephrosis (Chronic) Hospital Course: Fracture of right tibia in seting of complicated orthopedic history To be transferred to [facility] for further assessment Of note is h/o AFib now off of warfarin and finding of atrophic kidney and moderately severe hydronephrosis in the other kidney H/O AAA as well. Patient has not been seen by me for several years due to the surgical complications Condition: Fair - Instructions Diet, Activity, Other Instructions: as tolerated Disposition: TRANSFER ACUTE CARE/OTHER HOSP - Home Medications Comprehensive Discharge Medication List: Ambulatory Orders Bacitracin - [Bacitracin Topical Ointment -] 1 applic TP ASDIR 05/25/17 Furosemide [Lasix -] 40 mg PO DAILY 05/25/17 Hydralazine HCl [Apresoline -] 25 mg PO DAILY 05/25/17 Multivit-Min/FA/Lycopen/Lutein [Centrum Silver Tablet] 1 each PO DAILY 05/25/17 Spironolactone [Aldactone -] 25 mg PO DAILY 05/25/17 Zolpidem Tartrate [Ambien] 10 mg PO DAILY 05/25/17 Acetaminophen [Tylenol .Regular Strength -] 650 mg PO Q4HWA PRN #30 tablet 05/27 Amlodipine Besylate [Norvasc -] 10 mg PO DAILY tablet 05/27/17 Ceftriaxone [Rocephin -] 1 gm IVPB DAILY vial 05/27/17 Docusate Sodium [Colace -] 200 mg PO DAILY #30 cap 05/27/17 Escitalopram Oxalate [Lexapro -] 5 mg PO DAILY #30 tablet 05/27/17 Ferrous Sulfate [Feosol] 325 mg PO DAILY #30 tab 05/27/17 Metoprolol Succinate [Toprol XL -] 25 mg PO DAILY #30 tab 05/27/17 Ondansetron Injection [Zofran Injection] 4 mg IVPB Q4H PRN #10 vial 05/27/17 Oxycodone HCl [Roxicodone -] 5 mg PO Q4H PRN #10 tablet NS MDD 4 05/27/17 Pantoprazole Sodium [Protonix -] 40 mg PO DAILY #30 tab 05/27/17 Sennosides/Docusate Sodium [Pericolace -] 1 tablet PO BID #30 tablet 05/27/17 Trazodone HCl [Desyrel -] 50 mg PO HS #30 tablet 05/27/17
--- NOTE | 2017-05-27 14:49 | PN ---
Progress Note, Physician History of Present Illness: Pt seen and examined at bedside. She is awake and appears comfortable. - Current Medication List Current Medications: Active Medications Acetaminophen (Tylenol -) 650 mg PO Q4H PRN PRN Reason: FEVER OR PAIN Last Admin: 05/26/17 22:39 Dose: 650 mg Acetaminophen (Tylenol -) 650 mg PO Q4HWA PRN PRN Reason: PAIN Docusate Sodium (Colace -) 200 mg PO DAILY [facility] Last Admin: 05/27/17 10:07 Dose: 200 mg Escitalopram Oxalate (Lexapro -) 5 mg PO DAILY [facility] Last Admin: 05/27/17 10:07 Dose: 5 mg Ferrous Sulfate (Feosol -) 325 mg PO DAILY [facility] Last Admin: 05/27/17 10:07 Dose: 325 mg Ceftriaxone Sodium 1 gm/ (Dextrose) 50 mls @ 100 mls/hr IVPB DAILY [facility] Last Admin: 05/27/17 10:11 Dose: 100 mls/hr Metoprolol Succinate (Toprol Xl -) 25 mg PO DAILY [facility] Ondansetron HCl (Zofran Injection) 4 mg IVPB Q4H PRN PRN Reason: NAUSEA AND/OR VOMITING Last Admin: 05/25/17 20:03 Dose: 4 mg Oxycodone HCl (Roxicodone -) 5 mg PO Q4H PRN PRN Reason: PAIN Last Admin: 05/26/17 22:39 Dose: 5 mg Pantoprazole Sodium (Protonix -) 40 mg PO DAILY [facility] Last Admin: 05/27/17 10:07 Dose: 40 mg Senna/Docusate Sodium (Pericolace -) 1 tablet PO BID [facility] Last Admin: 05/27/17 10:07 Dose: 1 tablet Trazodone HCl (Desyrel -) 50 mg PO HS [facility] Last Admin: 05/26/17 22:36 Dose: 50 mg - Objective Vital Signs: Vital Signs Temperature 97.6 F 05/27/17 13:36 Pulse Rate 92 H 05/27/17 13:36 Respiratory Rate 20 05/27/17 09:00 Blood Pressure 104/68 05/27/17 13:36 O2 Sat by Pulse Oximetry (%) 97 05/27/17 09:00 Constitutional: Yes: Calm Eyes: Yes: Conjunctiva Clear HENT: Yes: Atraumatic Neck: Yes: Supple Cardiovascular: Yes: S1, S2 Respiratory: Yes: CTA Bilaterally Gastrointestinal: Yes: Soft Genitourinary: Yes: WNL Extremities: Yes: Other (right leg pain) Neurological: Yes: Oriented Psychiatric: Yes: Oriented Labs: CBC, BMP 05/27/17 06:30 05/27/17 06:30 INR, PTT INR 2.67 (0.82-1.09) H 05/26/17 06:00 Problem List - Problems (1) Tibia fracture Code(s): S82.209A - UNSP FRACTURE OF SHAFT OF UNSP TIBIA, INIT FOR CLOS FX Qualifiers: Encounter type: initial encounter Tibia location: proximal Fracture type: closed Fracture morphology: unspecified fracture morphology Laterality: right Qualified Code(s): S82.101A - Unspecified fracture of upper end of right tibia, initial encounter for closed fracture (2) Xsghh-bb-[id number] kidney injury Code(s): N17.9 - ACUTE KIDNEY FAILURE, UNSPECIFIED N18.9 - CHRONIC KIDNEY DISEASE, UNSPECIFIED (3) Diastolic dysfunction without heart failure Code(s): I51.9 - HEART DISEASE, UNSPECIFIED (4) Renal insufficiency Code(s): N28.9 - DISORDER OF KIDNEY AND URETER, UNSPECIFIED Assessment/Plan Current Medications Generic Name Dose Route Start Last Admin Trade Name Freq PRN Reason Stop Dose Admin Acetaminophen 650 mg 05/25/17 19:22 05/26/17 22:39 Tylenol - PO 650 mg Q4H PRN Administration FEVER OR PAIN Acetaminophen 650 mg 05/26/17 10:46 Tylenol - PO Q4HWA PRN PAIN Docusate Sodium 200 mg 05/26/17 11:00 05/27/17 10:07 Colace - PO 200 mg DAILY EUGENE Administration Escitalopram Oxalate 5 mg 05/26/17 10:00 05/27/17 10:07 Lexapro - PO 5 mg DAILY EUGENE Administration Ferrous Sulfate 325 mg 05/27/17 10:00 05/27/17 10:07 Feosol - PO 325 mg DAILY EUGENE Administration Ceftriaxone Sodium 1 gm/ 50 mls @ 100 mls/hr 05/26/17 20:00 05/27/17 10:11 Dextrose IVPB 100 mls/hr DAILY EUGENE Administration Metoprolol Succinate 25 mg 05/28/17 10:00 Toprol Xl - PO DAILY EUGENE Ondansetron HCl 4 mg 05/25/17 19:21 05/25/17 20:03 Zofran Injection IVPB 4 mg Q4H PRN Administration NAUSEA AND/OR VOMITING Oxycodone HCl 5 mg 05/25/17 19:22 05/26/17 22:39 Roxicodone - PO 5 mg Q4H PRN Administration PAIN Pantoprazole Sodium 40 mg 05/26/17 11:45 05/27/17 10:07 Protonix - PO 40 mg DAILY EUGENE Administration Senna/Docusate Sodium 1 tablet 05/26/17 11:00 05/27/17 10:07 Pericolace - PO 1 tablet BID EUGENE Administration Trazodone HCl 50 mg 05/26/17 22:30 05/26/17 22:36 Desyrel - PO 50 mg HS EUGENE Administration Impression 1. CKD 2. UTI 3. HTN 4. s/p Tibial fracture 5. right hydronephrosis Plan - cont with abx - repeat UA after UTI resolves to asses proteinuria - urology eval for hydronephrosis - keep wade in place - will follow
[2017-05-28] MEDS ORDERED: METOPROLOL SUCCINATE 25 MG TAB.SR.24H (FP) PO SCH (10:00)
== END 2017-05-27 15:18 | disposition short-term general hospital (02) | DRG 563 ==
LOC: JER 16:08 → JERBED 20:02 → UNDOADMIN 20:40 → J6S 23:21
PROVIDERS: ADMIT Internal Medicine; ATTEND Internal Medicine
PROC: 2W3MX1Z Immobilization of Left Lower Extremity using Splint (ICD-10-PCS; principal; 2017-05-26)
DX: S82.291A Other fracture of shaft of right tibia, initial encounter for closed fracture (principal); M97.11XA Periprosthetic fracture around internal prosthetic right knee joint, initial encounter; N17.9 Acute kidney failure, unspecified; I25.110 Atherosclerotic heart disease of native coronary artery with unstable angina pectoris; N39.0 Urinary tract infection, site not specified; N13.30 Unspecified hydronephrosis; I48.91 Unspecified atrial fibrillation; I12.9 Hypertensive chronic kidney disease with stage 1 through stage 4 chronic kidney disease, or unspecified chronic kidney disease; N18.9 Chronic kidney disease, unspecified; K21.9 Gastro-esophageal reflux disease without esophagitis; E03.9 Hypothyroidism, unspecified; D64.9 Anemia, unspecified; E87.5 Hyperkalemia; D72.828 Other elevated white blood cell count; M54.5 Low back pain; E88.09 Other disorders of plasma-protein metabolism, not elsewhere classified; I72.2 Aneurysm of renal artery; B96.29 Other Escherichia coli [E. coli] as the cause of diseases classified elsewhere; Z96.651 Presence of right artificial knee joint; Z87.891 Personal history of nicotine dependence; Z79.01 Long term (current) use of anticoagulants; W01.0XXA Fall on same level from slipping, tripping and stumbling without subsequent striking against object, initial encounter; Y92.098 Other place in other non-institutional residence as the place of occurrence of the external cause
CPT/HCPCS: 36415; 71010-TC; 72170-TC; 73552-TC-RT; 73562-TC-RT; 73590-TC-RT; 76775-TC; 80048; 80053; 81003; 81015; 82570; 83735; 84300; 84443; 84540; 85025; 85610; 85730; 86850; 86900; 86901; 87086; 87186; 93005; 93010; 99283-25

== ENCOUNTER 2017-06-13 14:30 | Emergency (ER) | payer OTHER, BC ==
[2017-06-13 15:03] VITALS: BMI 26.6
--- NOTE | 2017-06-13 18:22 | PDOC ---
History of Present Illness - General Chief Complaint: Bone Injury Stated Complaint: SENT BY PCP FOR FX Time Seen by Provider: 06/13/17 14:44 History Source: Patient Exam Limitations: No Limitations - History of Present Illness Initial Comments: 06/13/17 18:19 86-year-old female sent over from [facility] for evaluation of her surgical wound and physical appearance of her right lower extremity. Patient had fractured her tibia 2 with the last repair being done one week ago along with a knee replacement hip replacement accompanied by a femur fracture. Patient has no complaints of increasing pain, decreased sensation distally, fever, chills or decreased range of motion. Patient states receives physical therapy at the facility without difficulty. Patient is due for her suture removal in 7 days. Timing/Duration: unsure Severity: mild Associated Symptoms: reports: denies symptoms Past History - Travel Traveled outside of the country in the last 30 days: Yes - Past Medical History Allergies/Adverse Reactions: Allergies Allergy/AdvReac Type Severity Reaction Status Date / Time latex Allergy Intermediate Itching Verified 05/25/17 16:48 AND RASH Home Medications: Ambulatory Orders Bacitracin - [Bacitracin Topical Ointment -] 1 applic TP ASDIR 05/25/17 Furosemide [Lasix -] 40 mg PO DAILY 05/25/17 Hydralazine HCl [Apresoline -] 25 mg PO DAILY 05/25/17 Multivit-Min/FA/Lycopen/Lutein [Centrum Silver Tablet] 1 each PO DAILY 05/25/17 Spironolactone [Aldactone -] 25 mg PO DAILY 05/25/17 Zolpidem Tartrate [Ambien] 10 mg PO DAILY 05/25/17 Acetaminophen [Tylenol .Regular Strength -] 650 mg PO Q4HWA PRN #30 tablet 05/27 Amlodipine Besylate [Norvasc -] 10 mg PO DAILY tablet 05/27/17 Ceftriaxone [Rocephin -] 1 gm IVPB DAILY vial 05/27/17 Docusate Sodium [Colace -] 200 mg PO DAILY #30 cap 05/27/17 Escitalopram Oxalate [Lexapro -] 5 mg PO DAILY #30 tablet 05/27/17 Ferrous Sulfate [Feosol] 325 mg PO DAILY #30 tab 05/27/17 Metoprolol Succinate [Toprol XL -] 25 mg PO DAILY #30 tab 05/27/17 Ondansetron Injection [Zofran Injection] 4 mg IVPB Q4H PRN #10 vial 05/27/17 Oxycodone HCl [Roxicodone -] 5 mg PO Q4H PRN #10 tablet NS MDD 4 05/27/17 Pantoprazole Sodium [Protonix -] 40 mg PO DAILY #30 tab 05/27/17 Sennosides/Docusate Sodium [Pericolace -] 1 tablet PO BID #30 tablet 05/27/17 Trazodone HCl [Desyrel -] 50 mg PO HS #30 tablet 05/27/17 Bisacodyl Suppository [Dulcolax Suppository -] 10 mg RC DAILY 06/13/17 Docusate Sodium [Colace -] 100 mg PO TID 06/13/17 Heparin - 5,000 unit SQ BID 06/13/17 Levothyroxine Sodium [Synthroid] 200 mcg PO DAILY 06/13/17 Nystatin Cream [Mycostatin] 2 applic TP BID 06/13/17 Pantoprazole Sodium [Protonix -] 40 mg PO DAILY 06/13/17 Polyethylene Glycol 3350 [Miralax 255 gm Btl -] 17 grams PO HS 06/13/17 Anemia: No Asthma: No Cancer: No Cardiac Disorders: Yes (ATRIAL FIBRILLATION) CVA: No COPD: No CHF: No Dementia: (FORGETFUL AT TIMES,) Diabetes: No GI Disorders: No Disorders: No HTN: Yes Hypercholesterolemia: No Liver Disease: No Seizures: No Thyroid Disease: Yes (Hypothyroid) - Surgical History Abdominal Surgery: No Appendectomy: No Cardiac Surgery: No Cholecystectomy: No Lung Surgery: No Neurologic Surgery: No Orthopedic Surgery: Yes (Rt.TKR; Rt.Femur surg.w/prosthetic) - Immunization History Td Vaccination: (UNKNOWN) Immunization Up to Date: No - Suicide/Smoking/Psychosocial Hx Smoking Status: Yes Smoking History: Unknown if ever smoked Years of Tobacco Use: 30 Have you smoked in the past 12 months: No Number of Cigarettes Smoked Daily: 2 'Breaking Loose' booklet given: 08/15/15 Hx Alcohol Use: No Drug/Substance Use Hx: No Substance Use Type: None Hx Substance Use Treatment: No Patient Lives Alone: No Lives with/in: [facility] Review of Systems - Review of Systems Able to Perform ROS?: Yes Constitutional: No: Symptoms Reported HEENTM: No: Symptoms Reported Respiratory: No: Symptoms reported Cardiac (ROS): No: Symptoms Reported ABD/GI: No: Symptoms Reported Integumentary: No: Symptoms Reported Neurological: No: Symptoms reported Hematologic/Lymphatic: No: Symptoms Reported *Physical Exam - Vital Signs Last Vital Signs Temp Pulse Resp BP Pulse Ox 98.7 F 88 20 120/52 98 06/13/17 14:44 06/13/17 14:44 06/13/17 14:44 06/13/17 14:44 06/13/17 14:44 - Physical Exam General Appearance: Yes: Nourished, Appropriately Dressed. No: Apparent Distress HEENT: negative: Pale Conjunctivae Respiratory/Chest: positive: Lungs Clear, Normal Breath Sounds. negative: Respiratory Distress, Accessory Muscle Use Cardiovascular: positive: Regular Rhythm, Regular Rate. negative: Murmur Integumentary: positive: Other (Patient with intact sutures to the anterior aspect of right lower extremity expend extending to the mid tib-fib region. Patient also with noted medial lower patellar sutures of the right lower extremity without noted increased warmth, swelling redness or drainage. Noted crusting to surgical wounds) Neurologic: positive: Motor Strength 5/5 (Full straight leg raise). negative: Sensory Deficit ED Treatment Course - RADIOLOGY Radiology Studies Ordered: Category Date Time Status LEG TIB/FIB-RIGHT [RAD] Stat Radiology 06/13/17 16:19 Completed Medical Decision Making - Medical Decision Making 06/13/17 18:03 Patient sent for evaluation of right lower extremity surgical wound. Patient status post tibial repair with hardware placement one week ago at [facility]. Patient has no other complaints at this time. On exam patient has crusting and appropriate healing process to surgical wounds. Patient ordered for a tib-fib x-ray to evaluate hardware placement 06/13/17 18:25 X-ray shows intact hardware and no acute changes when compared to 99. Patient be sent back to do a [facility]. Area was redressed using bacitracin and nonstick dressing and then cover with Kerlix and Ulises wrap. Area should be change every 48 hours using this technique. *DC/Admit/Observation/Transfer Diagnosis at time of Disposition: Encounter for surgical wound dressing change - Discharge Dispostion Disposition: HOME Condition at time of disposition: Good - Referrals Referrals: Khalif Ceron MD [Primary Care Provider] - - Patient Instructions Printed Discharge Instructions: How to Care for a Surgical Wound-Stitches Additional Instructions: Please apply and nonstick dressing after applying bacitracin and cleansing with normal saline at least every 48 hours covering with a Kerlix and Ulises wrap. Please have patient see the surgeon for removal of sutures within 7 days.
[2017-06-13 20:16] VITALS: BP 133/53; PULSE 69; TEMP 98.1
--- NOTE | 2017-06-18 09:48 | EKG ---
Test Reason : Blood Pressure : / mmHG Vent. Rate : 053 BPM Atrial Rate : 258 BPM P-R Int : 000 ms QRS Dur : 096 ms QT Int : 414 ms P-R-T Axes : 000 -04 006 degrees QTc Int : 388 ms ATRIAL FIBRILLATION WITH SLOW VENTRICULAR RESPONSE ABNORMAL ECG WHEN COMPARED WITH ECG OF 25-MAY-2017 16:34, NO SIGNIFICANT CHANGE WAS FOUND Confirmed by MOE OLIVEROS MD ([id number]) on 06/18/2017 9:48:33 AM Referred By: Confirmed By:MOE OLIVEROS MD
== END 2017-06-13 20:17 | disposition home or self-care (01) ==
LOC: JER 14:30
DX: Z48.01 Encounter for change or removal of surgical wound dressing (principal)
CPT/HCPCS: 73590-TC-RT; 93005; 93010; 99281-25

== ENCOUNTER 2018-10-01 13:43 | Inpatient (IN) | payer OTHER ==
--- NOTE | 2018-10-01 15:18 | EKG ---
Test Reason : Blood Pressure : / mmHG Vent. Rate : 071 BPM Atrial Rate : 059 BPM P-R Int : 000 ms QRS Dur : 096 ms QT Int : 362 ms P-R-T Axes : 000 -03 020 degrees QTc Int : 393 ms POOR DATA QUALITY, INTERPRETATION MAY BE ADVERSELY AFFECTED ATRIAL FIBRILLATION ABNORMAL ECG WHEN COMPARED WITH ECG OF 21-MAY-2018 14:41, CRITERIA FOR ANTEROSEPTAL INFARCT ARE NO LONGER PRESENT Confirmed by ORLIN HARPER, KATLYN ([id number]) on 10/01/2018 3:18:06 PM Referred By: Confirmed By:KATLYN ORDAZ MD
--- NOTE | 2018-10-01 15:28 | PDOC ---
History of Present Illness - General Chief Complaint: Wound Stated Complaint: WOUND Time Seen by Provider: 10/01/18 14:46 History Source: Patient, Primary Care Provider Exam Limitations: No Limitations - History of Present Illness Initial Comments: 10/01/18 15:27 Pt is an 87yo F with PMH of Afib (on Coumadin), HTN, CKD, HLD presenting to ED for R leg ulceration x 6 years. Per pt and Per Dr. Ceron, pt has had leg ulcerations with minimal healing for 6 years. She has been taking Bactrim for 6 years for prophylaxis and was on Augmentin for the past 2 weeks. She has been going to Dr. Lacey's office for wound care but she continues to have drainage. Pt endorses pain in the leg. Denies fevers, chills, abdominal pain, n/v/d, numbness/tingling. She has had surgery in the R knee/femur and tibia/fibula. Pt has been unable to ambulate on R leg PMD: Jie Vasc: Abhijit ID: Tyron Past History - Past Medical History Allergies/Adverse Reactions: Allergies Allergy/AdvReac Type Severity Reaction Status Date / Time latex Allergy Intermediate Itching Verified 05/25/17 16:48 AND RASH Home Medications: Ambulatory Orders Zolpidem Tartrate [Ambien] 5 mg PO HS 05/25/17 Sennosides/Docusate Sodium [Pericolace -] 1 tablet PO BID #30 tablet 05/27/17 Levothyroxine Sodium [Synthroid] 100 mcg PO DAILY 06/13/17 Pantoprazole Sodium [Protonix -] 40 mg PO DAILY 06/13/17 Tramadol HCl 50 mg PO DAILY 05/21/18 Warfarin Sodium 4 tab PO HS 05/21/18 Docusate Sodium [Colace -] 100 mg PO TID #60 capsule 05/23/18 Metoprolol Succinate [Toprol Xl] 25 mg PO DAILY 10/01/18 Polyethylene Glycol 3350 [Miralax (For Daily Use) -] 17 gm PO DAILY 10/01/18 Anemia: No Asthma: No Cancer: No Cardiac Disorders: Yes (ATRIAL FIBRILLATION) CVA: No COPD: No CHF: No Dementia: (FORGETFUL AT TIMES,) Diabetes: No GI Disorders: No Disorders: No HTN: Yes Hypercholesterolemia: No Liver Disease: No Seizures: No Thyroid Disease: Yes (Hypothyroid) - Surgical History Abdominal Surgery: No Appendectomy: No Cardiac Surgery: No Cholecystectomy: No Lung Surgery: No Neurologic Surgery: No Orthopedic Surgery: Yes (Rt.TKR; Rt.Femur surg.w/prosthetic) - Immunization History Td Vaccination: (UNKNOWN) Immunization Up to Date: No - Suicide/Smoking/Psychosocial Hx Smoking Status: Yes Smoking History: Current some day smoker Years of Tobacco Use: 30 Have you smoked in the past 12 months: No Number of Cigarettes Smoked Daily: 1 Information on smoking cessation initiated: No 'Breaking Loose' booklet given: 08/15/15 Hx Alcohol Use: No Drug/Substance Use Hx: No Substance Use Type: None Hx Substance Use Treatment: No Review of Systems - Review of Systems Constitutional: No: Chills, Fever, Weakness HEENTM: No: Symptoms Reported Respiratory: No: Cough, Shortness of Breath Cardiac (ROS): No: Chest Pain, Lightheadedness, Palpitations, Syncope ABD/GI: No: Constipated, Diarrhea, Nausea, Vomiting, Abdominal cramping : No: Symptoms Reported Musculoskeletal: Yes: Joint Swelling (R knee swelling), Other (R leg pain) Integumentary: Yes: See HPI, Erythema, Lesions, Rash Neurological: No: Headache, Numbness, Tingling, Weakness *Physical Exam - Vital Signs Last Vital Signs Temp Pulse Resp BP Pulse Ox 98.3 F 72 16 139/61 97 10/01/18 13:48 10/01/18 13:48 10/01/18 13:48 10/01/18 13:48 10/01/18 13:48 - Physical Exam General Appearance: Yes: Appropriately Dressed, Mild Distress, Obese HEENT: positive: EOMI, BRANDI, Normal ENT Inspection Neck: positive: Trachea midline, Supple. negative: Lymphadenopathy (R), Lymphadenopathy (L) Respiratory/Chest: positive: Lungs Clear, Normal Breath Sounds Cardiovascular: positive: Regular Rhythm, Regular Rate, S1, S2. negative: Edema , JVD, Murmur Vascular Pulses: Dorsalis-Pedis (R): 1+, Doralis-Pedis (L): 2+ Gastrointestinal/Abdominal: positive: Normal Bowel Sounds, Soft. negative: Distended, Guarding, Rebound, Tenderness Musculoskeletal: positive: Other (R leg tenderness). negative: CVA Tenderness Extremity: positive: Normal Capillary Refill, Pelvis Stable, Pedal Edema (of R foot), Swelling (R leg from knee down), Erythema (R leg) Integumentary: positive: Other (erythema and ulcerations of R lateral knee, R ankle and calf. with drainage. Does not penetrate muscular layers) Neurologic: positive: poly area supervisor II-XII NML intact, Fully Oriented, Alert, Normal Mood/ Affect, Normal Response Moderate Sedation - Procedure Monitoring Vital Signs: Procedure Monitoring Vital Signs Temperature 98.3 F 10/01/18 13:48 Pulse Rate 72 10/01/18 13:48 Respiratory Rate 16 10/01/18 13:48 Blood Pressure 139/61 10/01/18 13:48 O2 Sat by Pulse Oximetry (%) 97 10/01/18 13:48 ED Treatment Course - LABORATORY CBC & Chemistry Diagram: 10/01/18 15:15 10/01/18 15:15 - RADIOLOGY Radiology Studies Ordered: Category Date Time Status ANKLE & FOOT-RIGHT* [RAD] Stat Radiology 10/01/18 15:16 Ordered KNEE 2 POS-RIGHT [RAD] Stat Radiology 10/01/18 15:16 Ordered LEG TIB/FIB-RIGHT [RAD] Stat Radiology 10/01/18 15:16 Ordered Medical Decision Making - Medical Decision Making 10/01/18 21:56 Pt is an 87yo F with PMH of Afib (on Coumadin), HTN, CKD, HLD presenting to ED for R leg ulceration x 6 years. Per pt and Per Dr. Ceron, pt has had leg ulcerations with minimal healing for 6 years. She has been taking Bactrim for 6 years for prophylaxis and was on Augmentin for the past 2 weeks. She has been going to Dr. Lacey's office for wound care but she continues to have drainage. Pt endorses pain in the leg. Denies fevers, chills, abdominal pain, n/v/d, numbness/tingling. She has had surgery in the R knee/femur and tibia/fibula. Pt has been unable to ambulate on R leg Vitals: rectal 100.3, normotensive, normocardic Low suspicion for DVT given pt is on Coumadin. Higher concern for cellulitis v. nec fas v. osteomyelitis labs, cbc, cmp, CRP, lactate, blood cultures, UA, EKG, Radiographs of R leg ordered. 500mL fluids Dr. Ackerman consulted. Dr. Cummins responded. Stated pt can be started on vancomycin and he will order vancomycin for patient. Xray shows s/p R knee replacement, calcification of popliteal artery. No signs of osteomyelitis per my inspection. Pt admitted for soft tissue infection of the R leg. *DC/Admit/Observation/Transfer Diagnosis at time of Disposition: Cellulitis, Wound infection - Discharge Dispostion Condition at time of disposition: Good Decision to Admit order: Yes - Referrals - Patient Instructions - Post Discharge Activity
[2018-10-01 15:32] LABS: BASO % 0.6 % (0-2.0); EOS % 0.2 % (0-4.5); HEMATOCRIT 28.7 % (32.4-45.2); HEMOGLOBIN 9.5 GM/dL (10.7-15.3); LYMPH % 5.1 % (8-40); MCHC 32.9 g/dl (32.0-36.0); MEAN PLT VOLUME 7.1 fl (7.5-11.1); MONO % 4.9 % (3.8-10.2); NEUT % 89.2 % (42.8-82.8); PLATELET COUNT 319 K/MM3 (134-434); RBC 3.64 M/mm3 (3.60-5.2); RDW 17.6 % (11.6-15.6); WHITE BLOOD COUNT 12.5 K/mm3 (4.0-10.0)
[2018-10-01 15:51] LABS: INR 3.69 (0.83-1.09); PROTHROMBIN TIME (PATIENT) 44.1 SEC (9.7-13.0)
[2018-10-01 15:54] LABS: ACTIVATED PTT 58.1 SECONDS (25.2-36.5)
[2018-10-01 16:02] LABS: ALBUMIN 2.1 g/dl (3.4-5.0); ALK PHOS 104 U/L (45-117); ANION GAP 7 MMOL/L (8-16); BILIRUBIN,TOTAL 0.4 mg/dL (0.2-1); BLOOD UREA NITROGEN 19 mg/dL (7-18); CALCIUM 8.7 mg/dL (8.5-10.1); CHLORIDE 102 mmol/L (98-107); CO2 26 mmol/L (21-32); CREATININE 1.4 mg/dL (0.55-1.3); GLUCOSE,RANDOM 84 mg/dL (74-106); POTASSIUM 4.7 mmol/L (3.5-5.1); SGOT/AST 21 U/L (15-37); SGPT/ALT 14 U/L (13-61); SODIUM 134 mmol/L (136-145); TOT PROT 5.8 g/dl (6.4-8.2)
--- NOTE | 2018-10-01 16:08 | PDOC ---
Attending Attestation - Resident Resident Name: Jovanna Sharp - ED Attending Attestation I have performed the following: I have examined & evaluated the patient, The case was reviewed & discussed with the resident, I agree w/resident's findings & plan, Exceptions are as noted - HPI HPI: 10/01/18 16:07 " The patient is a 87 year old female with a significant PMH of HTN, atrial fibrillation on coumadin, MRSA, anemia, CKD, HLD, AAA, hypothyroidism, CAD, spinal stenosis presenting to ED for soft tissue infection to the right leg. Patient had TKA on the right knee 6 months ago and since then has had non- healing wound. Pt is followed by Dr. Ackerman and Dr. Lacey for these wounds. Is on chronic bactrim suppressive therapy. Was sent to ED today by wound nurse. She denies fever, chills, nausea, vomiting, chest pain, shortness of breath, cough, headache, weakness, lightheadedness. Allergies - Latex Surgical history - total knee replacement, right hip replacement (08/2013), right hp prosthesis explant and replacement (05/18/16), right tibia Fx repair ( 05/25/2017) - Physicial Exam PE: 10/01/18 16:16 agree with resident exam - Medical Decision Making 10/01/18 16:16 87 F with chronic nonhealing wounds of RLE. No fevers or signs of systemic infection. However, wound does appear infected. - Labs, cultures - C/s Drs. Ackerman and Abhijit
--- NOTE | 2018-10-01 18:44 | PN ---
Teaching Attending Note Name of Resident: Taisha Miramontes ATTENDING PHYSICIAN STATEMENT I saw and evaluated the patient. I reviewed the resident's note and discussed the case with the resident. I agree with the resident's findings and plan as documented with exceptions below. 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 Ackerman, s/p augmentin BID x 1 week, which she finished today, was seen again at wound care center today, sent to ED with ongoing concerns of foul smelling discharge/infection, for further management. Patient reports overall worsening right leg pain, swelling discharge for last 1 month, has chronic right leg pain with contractures with some worsening. Denies any fevers, chills, abdominal or urinary symptoms, recent weight gain, orthopnea /PND, chest pain or palpitations. OBJECTIVE: Vital Signs Period Temp Pulse Resp BP Sys/Toro Pulse Ox Last 24 Hr 98.3 F-100.3 F 72 16 139/61 97 Intake & Output 09/28/18 09/29/18 09/30/18 10/01/18 23:59 23:59 23:59 23:59 Weight 183 lb GENERAL: Awake, alert, and fully oriented, in no acute distress. HEAD: Normal with no signs of trauma. EYES: Pupils equal, round and reactive to light, extraocular movements intact, sclera anicteric, conjunctiva clear. No lid lag. EARS, NOSE, THROAT: Ears normal, nares patent, oropharynx clear without exudates. Moist mucous membranes. NECK: Normal range of motion, soft, supple, no JVD noted LUNGS: Breath sounds equal, clear to auscultation bilaterally. No wheezes, and no crackles. No accessory muscle use. HEART: S1S2 irregularly irregular ABDOMEN: Soft, nontender, not distended, normoactive bowel sounds, no guarding, no rebound, no masses. MUSCULOSKELETAL: Normal range of motion at all joints. No bony deformities or tenderness. No CVA tenderness. UPPER EXTREMITIES: 2+ pulses, warm, well-perfused. No cyanosis. No clubbing. No peripheral edema. LOWER EXTREMITIES: RLE - with extensive area of denuded skin over lateral foot/ leg/extending till above knee, superficial ulcer able lateral malleolus with minimal serosanguinous foul smelling discharge, right lateral leg, ulcer with dried blood, right lateral knee sinus tract with some foul smelling clear discharge, RLE swelling noted, faint right DP/PT pulses LLE with palpable DP pulses NEUROLOGICAL: facial symmetry, tongue midline, grossly no focal exam PSYCHIATRIC: Cooperative. Good eye contact. Appropriate mood and affect. SKIN: Warm, dry, normal turgor, no rashes or lesions noted, normal capillary refill. Home Medications Medication Instructions Recorded Zolpidem Tartrate [Ambien] 5 mg PO HS 05/25/17 Sennosides/Docusate Sodium 1 tablet PO BID #30 tablet 05/27/17 [Pericolace -] Levothyroxine Sodium [Synthroid] 100 mcg PO DAILY 06/13/17 Pantoprazole Sodium [Protonix -] 40 mg PO DAILY 06/13/17 Tramadol HCl 50 mg PO HS 05/21/18 Warfarin Sodium 4 tab PO DAILY 05/21/18 Docusate Sodium [Colace -] 100 mg PO TID #60 capsule 05/23/18 Polyethylene Glycol 3350 [Miralax 17 gm PO BID #1 bottle 05/23/18 119 gm Btl -] Laboratory Results - last 24 hr 10/01/18 10/01/18 10/01/18 15:15 15:15 15:15 WBC 12.5 H RBC 3.64 Hgb 9.5 L Hct 28.7 L MCV 79.0 L MCH 26.0 MCHC 32.9 RDW 17.6 H Plt Count 319 D MPV 7.1 L Absolute Neuts (auto) 11.1 H Neutrophils % 89.2 H D Lymphocytes % 5.1 L D Monocytes % 4.9 Eosinophils % 0.2 D Basophils % 0.6 Nucleated RBC % 0 PT with INR 44.10 H INR 3.69 H PTT (Actin FS) 58.1 H Sodium 134 L Potassium 4.7 Chloride 102 Carbon Dioxide 26 Anion Gap 7 L BUN 19 H Creatinine 1.4 H Creat Clearance w eGFR 35.57 Random Glucose 84 Lactic Acid Calcium 8.7 Total Bilirubin 0.4 AST 21 ALT 14 Alkaline Phosphatase 104 C-Reactive Protein 15.5 H Total Protein 5.8 L Albumin 2.1 L Blood Type Antibody Screen 10/01/18 10/01/18 15:15 16:50 WBC RBC Hgb Hct MCV MCH MCHC RDW Plt Count MPV Absolute Neuts (auto) Neutrophils % Lymphocytes % Monocytes % Eosinophils % Basophils % Nucleated RBC % PT with INR INR PTT (Actin FS) Sodium Potassium Chloride Carbon Dioxide Anion Gap BUN Creatinine Creat Clearance w eGFR Random Glucose Lactic Acid 2.0 Calcium Total Bilirubin AST ALT Alkaline Phosphatase C-Reactive Protein Total Protein Albumin Blood Type A POSITIVE Antibody Screen Negative Right foot/ankle/tibia/fibula/Knee xrays done, results pending ASSESSMENT AND PLAN: 87 yof with extensive PMHX as above admitted with RLE cellulitis+/- acute on chronic osteomyelitis -RLE cellulitis with draining wounds , chronic sinus tract, suspected acute on chronic osteomelitis -Right hip/knee/tibia/fibula hardware with extensive orthopedic surgeries -Afib on coumadin -CAD/angina pectoris -HTN -HLD -CKD stage II -GERD -H/o MRSA bacteremia Plan: Outpatient abx failure. Zosyn/vanco, blood cx sent, sent wound care. Wound care consult Dr. Lacey ID consult CRP noted, check ESR MRI in 05/2018, that was limited study, monitor clinical response on abx before additional imaging. Follow up xrays. Orthopedic input based on clinical course. Hold coumadin today (patient reports taking 4 mg on MWF and 2 mg rest days). INR in AM Cr around baseline, encourage oral intake. patient reports being on metoprolol, not on current med list, confirm. DVTPPX supratherapeutic INR Code status; full, wants her son Eric her HCP Dispo pending clinical improvement. Plan discussed with patient in detail, all questions answered. Plan discussed with nursing total admit time spent 65 min.
--- NOTE | 2018-10-01 18:45 | HP ---
CHIEF COMPLAINT: sent from wound care clinic by Dr. Lacey for chronic RLE wound PCP: Dr. Ceron HISTORY OF PRESENT ILLNESS: 87F w/ pmhx of AFib (on Coumadin), HTN, diastolic dysfunction, hypothyroidism, CKD, GERD was sent by Dr. Lacey at the wound care clinic for further evaluation of a chronic draining RLE wound s/p Right hip ORIF (08/2013), Right hip removal of hardware- (05/2016), Right hip replacement/repair @[facility]- (07/2016), Right tibia fx repair @ [facility]- (05/2017). Pt was recently seen by Dr. Ackerman on and given Augmentin BID x1 week for RLE wound. In addition to Augmentin tx, pt was on Bactrim chronically for the past 3 years. Per son, pt has not noticed any improvement in RLE wound since starting Augmentin 1 week ago. Pt reports that the wound is malodorous, and usually drains serous fluid. Son usually does daily dressing changes at home along with VNS who comes 3x/week. Pt is wheelchair bound. She admits to limited ROM of her RLE due to pain from her chronic excoriating wound ulcers. Pain is worse during dressing changes and upon manipulation of leg. She states she does not have a problem with vasculature on her R leg as she she states she has it checked regularly by her doctor. Of note, pt was recently admitted to the hospital 06/03 for treatment of same chronic RLE wound ulcers. She has had multiple wound cultures (+MRSA, Staph haemolyticus, Acetinobacter baumannii, Diptheroid coryne, E. faecalis, Morganella Morganii, VRE faecalis) in the past with resistance to multiple drugs. Denies cox/d, f/c, n/v, chest pain, sob, abd pain, urinary symptoms. Admits to constipation. ER course was notable for: (1) WBC 12.5, T 100.3, INR 3.69 (2) R ankle/foot xray, R knee xray, R tib/fib xray done, BCx ordered (3) ID and vasc surg consult PAST MEDICAL HISTORY: A. fib (on Coumadin) HTN diastolic dysfunction Hypothyroidism CKD GERD PAST SURGICAL HISTORY: TKR: Right hip ORIF (08/2013) Right hip removal of hardware- (05/2016) Right hip replacement/repair @[facility]- (07/2016) Right tibia fx repair @ [facility]- (05/2017) Social History: Smoking: Currently smoker; 1 cigarette/week Alcohol: Socially drinks 1 glass of wine during social events Drugs: Denies Family History: Per previous record, mother- heart disease Allergies latex Allergy (Intermediate, Verified 05/25/17 16:48) Itching AND RASH ITCHY HOME MEDICATIONS: Home Medications Medication Instructions Recorded Zolpidem Tartrate [Ambien] 5 mg PO HS 05/25/17 Sennosides/Docusate Sodium 1 tablet PO BID #30 tablet 05/27/17 [Pericolace -] Levothyroxine Sodium [Synthroid] 100 mcg PO DAILY 06/13/17 Pantoprazole Sodium [Protonix -] 40 mg PO DAILY 06/13/17 Tramadol HCl 50 mg PO HS 05/21/18 Warfarin Sodium 4 tab PO DAILY 05/21/18 Docusate Sodium [Colace -] 100 mg PO TID #60 capsule 05/23/18 Polyethylene Glycol 3350 [Miralax 17 gm PO BID #1 bottle 05/23/18 119 gm Btl -] REVIEW OF SYSTEMS CONSTITUTIONAL: Denies f/c, diaphoresis, malaise, loss of appetite HEENT: Denies sore throat, ear pain, eye pain, visual changes CARDIOVASCULAR: Denies chest pain, palpitations, peripheral edema RESPIRATORY: Denies cough, sob, ivan, orthopnea, wheezing GASTROINTESTINAL: Admits to constipation. Denies abd pain/distension, n/v, diarrhea. GENITOURINARY: Denies dysuria, frequency, urgency, hesitancy, hematuria MUSCULOSKELETAL: Admits to back pain SKIN: chronic RLE blistering wounds, draining serous fluid; +tenderness throughout RLE NEUROLOGIC: Denies headache, dizziness, mental status changes, bladder/bowel incontinence. Unable to walk. PHYSICAL EXAMINATION Vital Signs - 24 hr 10/01/18 10/01/18 13:48 15:29 Temperature 98.3 F 100.3 F H Pulse Rate 72 Respiratory 16 Rate Blood Pressure 139/61 O2 Sat by Pulse 97 Oximetry (%) GENERAL: AAOx3. Moderate distress due to pain during examination of wounds. Cooperative. HEENT: AT/NC. EOMI. BRANDI. Dry mucus membranes. LUNGS: CTA B/L. No wheeze heard. Symmetric chest rise. HEART: Irregularly irregular. No murmurs noted. ABDOMEN: Soft, NT/ND. +BS in all 4Q's. No masses noted. MUSCULOSKELETAL: limited ROM in RLE due to pain. EXTREMITIES: 2+ L dorsalis pedis pulse. Significant R thigh swelling, non- erythematous, non-tender, no discoloration. NEUROLOGICAL: Normal speech. Facial muscles intact. Sensation intact b/l u/l extremities. SKIN: multiple excoriating wound ulcers draining serous fluid along lateral aspect of R leg from knee distally; maladorous. Anterior casarez has interspersed scaly peeling skin. R heel has blistering open wound. Tenderness along entire length of RLE wound. Laboratory Results - last 24 hr 10/01/18 10/01/18 10/01/18 15:15 15:15 15:15 WBC 12.5 H RBC 3.64 Hgb 9.5 L Hct 28.7 L MCV 79.0 L MCH 26.0 MCHC 32.9 RDW 17.6 H Plt Count 319 D MPV 7.1 L Absolute Neuts (auto) 11.1 H Neutrophils % 89.2 H D Lymphocytes % 5.1 L D Monocytes % 4.9 Eosinophils % 0.2 D Basophils % 0.6 Nucleated RBC % 0 PT with INR 44.10 H INR 3.69 H PTT (Actin FS) 58.1 H Sodium 134 L Potassium 4.7 Chloride 102 Carbon Dioxide 26 Anion Gap 7 L BUN 19 H Creatinine 1.4 H Creat Clearance w eGFR 35.57 Random Glucose 84 Lactic Acid Calcium 8.7 Total Bilirubin 0.4 AST 21 ALT 14 Alkaline Phosphatase 104 C-Reactive Protein 15.5 H Total Protein 5.8 L Albumin 2.1 L Blood Type Antibody Screen 10/01/18 10/01/18 15:15 16:50 WBC RBC Hgb Hct MCV MCH MCHC RDW Plt Count MPV Absolute Neuts (auto) Neutrophils % Lymphocytes % Monocytes % Eosinophils % Basophils % Nucleated RBC % PT with INR INR PTT (Actin FS) Sodium Potassium Chloride Carbon Dioxide Anion Gap BUN Creatinine Creat Clearance w eGFR Random Glucose Lactic Acid 2.0 Calcium Total Bilirubin AST ALT Alkaline Phosphatase C-Reactive Protein Total Protein Albumin Blood Type A POSITIVE Antibody Screen Negative CONSULTS: ID- Dr. Tyron Lara- Dr. Lacey IMAGING: * R foot/ankle xray: pending * R knee xray: pending * R tib/fib xray: pending ASSESSMENT/PLAN: 87F w/ pmhx of AFib (on Coumadin), HTN, diastolic dysfunction, hypothyroidism, CKD, GERD was sent by Dr. Lacey at the wound care clinic for further evaluation of a chronic draining RLE wound (failed outpatient abx treatment). #Chronic RLE cellulitis -Vanc 1gm, Zosyn 3.375gm (Pt has been on Augmentin for the past week and chronically on Bactrim x3 years) -ID consult ordered -Vasc surg consult ordered -Blood/wound cx ordered -f/u ESR, CRP 15 -Tramadol 50 mg PO TID PRN and Tylenol 650 mg PO Q6H PRN for pain -RLE duplex to r/o DVT -isolation precautions (h/o MRSA) #A fib; EKG shows A. fib, HR ~70s -Hold home med: Coumadin as INR is supratherapeutic Cont home med: Metoprolol 25 mg PO QD #GERD Cont home med: Protonix 40 mg PO QD #CKD; Cr 1.4 -at baseline -encourage PO hydration #Hypothyroidism Cont home med: Levothyroxine 100 mg PO QD #Constipation Cont home med: Miralax, Senna, Colace #Prophylaxis DVT- Pt is on Coumadin at home, however INR is supratherapeutic at 3.69; will hold Coumadin for now. Pt take Coumadin 5 MWF, 2 on other days GI- Protonix 40 mg PO QD #FEN -IVf -recheck lytes in AM -sodium-controlled diet dispo -full code as discussed with patient Visit type - Emergency Visit Emergency Visit: Yes ED Registration Date: 10/01/18 Care time: The patient presented to the Emergency Department on the above date and was hospitalized for further evaluation of their emergent condition. - New Patient This patient is new to me today: Yes Date on this admission: 10/01/18 - Critical Care Critical Care patient: No
[2018-10-01] MEDS ORDERED: VANCOMYCIN 1 GRAM (PRE-DOCKED) 1,000 MG/250 ML BAG IVPB ONE ×2 (18:48→19:52)
[2018-10-01] MEDS ORDERED: PIPERACILLIN/TAZOB 3.375 GM 3.375 GM in DEXTROSE 5%-WATER - 50 ML IVPB SCH ×2 (19:00→19:15)
[2018-10-01] MEDS ORDERED: PANTOPRAZOLE 40 MG TABLET (FP) ONE (19:52)
[2018-10-01] MEDS ORDERED: LEVOTHYROXINE NA 25 MCG TABLET (FP) ONE (19:52)
[2018-10-01] MEDS ORDERED: PIPERACILLIN/TAZOB 3.375 GM 3.375 GM/50 ML BAG IVPB ONE (19:53)
[2018-10-01] MEDS: LEVOTHYROXINE NA 100 MCG TABLET (FP) PO SCH (21:45)
[2018-10-01] MEDS: POLYETHYLENE GLYCOL 3350 119 GM BTL PO SCH (21:45)
[2018-10-01] MEDS: PANTOPRAZOLE 40 MG TABLET (FP) PO SCH (21:45)
[2018-10-01] MEDS ORDERED: ZOLPIDEM TARTRATE 5 MG PO SCH (22:00)
[2018-10-02] MEDS: traMADol HCL 50 MG TABLET PO PRN ×2 (01:35→17:36)
[2018-10-02 05:58] VITALS: BMI 28.3
[2018-10-02 07:22] LABS: BASO % 0.7 % (0-2.0); EOS % 0.2 % (0-4.5); HEMATOCRIT 24.9 % (32.4-45.2); HEMOGLOBIN 8.2 GM/dL (10.7-15.3); LYMPH % 7.7 % (8-40); MCH 25.9 pg (25.7-33.7); MCHC 32.9 g/dl (32.0-36.0); MEAN CELL VOLUME 78.8 fl (80-96); MEAN PLT VOLUME 6.9 fl (7.5-11.1); MONO % 5.2 % (3.8-10.2); NEUT % 86.2 % (42.8-82.8); PLATELET COUNT 251 K/MM3 (134-434); RBC 3.16 M/mm3 (3.60-5.2); RDW 17.1 % (11.6-15.6)
[2018-10-02 08:07] LABS: PROTHROMBIN TIME (PATIENT) 53.8 SEC (9.7-13.0)
[2018-10-02 08:50] LABS: INR 4.49 (0.83-1.09)
[2018-10-02 09:16] LABS: ALBUMIN 1.8 g/dl (3.4-5.0); ALK PHOS 88 U/L (45-117); ANION GAP 9 MMOL/L (8-16); BILIRUBIN,TOTAL 0.5 mg/dL (0.2-1); BLOOD UREA NITROGEN 19 mg/dL (7-18); CALCIUM 7.9 mg/dL (8.5-10.1); CHLORIDE 106 mmol/L (98-107); CO2 25 mmol/L (21-32); CREATININE 1.4 mg/dL (0.55-1.3); GLUCOSE,RANDOM 91 mg/dL (74-106); MAGNESIUM 1.8 mg/dL (1.8-2.4); PHOSPHOROUS 2.5 mg/dL (2.5-4.9); POTASSIUM 4.2 mmol/L (3.5-5.1); SGOT/AST 17 U/L (15-37); SGPT/ALT 11 U/L (13-61); SODIUM 139 mmol/L (136-145); TOT PROT 4.8 g/dl (6.4-8.2)
[2018-10-02] MEDS ORDERED: PIPERACILLIN/TAZOBACTAM 3.375 GM VIAL IVPB ONE ×2 (09:20→15:21)
[2018-10-02] MEDS ORDERED: DEXTROSE 5%-WATER - 50 ML IVPB ONE ×2 (09:20→15:21)
[2018-10-02] MEDS: SENNOSIDES/DOCUSATE COMBO (SENNA PLUS) TABLET (UD) PO SCH ×2 (09:32→22:01)
[2018-10-02] MEDS: PANTOPRAZOLE 40 MG TABLET (FP) PO SCH (09:32)
[2018-10-02] MEDS: LACTOBACILLUS ACIDOPHILUS 1 TABLET PO SCH (09:32)
[2018-10-02] MEDS: PIPERACILLIN/TAZOB 3.375 GM 3.375 GM in DEXTROSE 5%-WATER - 50 ML IVPB SCH ×2 (09:34→15:38)
[2018-10-02] MEDS: POLYETHYLENE GLYCOL 3350 119 GM BTL PO SCH (09:35)
[2018-10-02] MEDS: metoPROLOL SUCCINATE 25 MG TAB.SR.24H (FP) PO SCH (09:36)
--- NOTE | 2018-10-02 12:57 | PN ---
Teaching Attending Note Name of Resident: Marycruz Ayon ATTENDING PHYSICIAN STATEMENT I saw and evaluated the patient. I reviewed the resident's note and discussed the case with the resident. I agree with the resident's findings and plan as documented with exceptions below. SUBJECTIVE: Patient seen and examined, Right leg pain improved, less foul smell per patient. OBJECTIVE: Vital Signs Period Temp Pulse Resp BP Sys/Toro Pulse Ox Last 24 Hr 98.1 F-100.3 F 72-110 15-22 116-142/56-92 97-100 Intake & Output 09/29/18 09/30/18 10/01/18 10/02/18 23:59 23:59 23:59 23:59 Intake Total 225 Balance 225 Weight 183 lb 180 lb 14.4 oz General: sitting in bed in no acute distress Chest: CTAB, no rales or wheezing Abdomen;Soft, NT, ND Extremities: RLE denuded skin with ulceration, improved swelling and erythema, less foul smell with decreased discharge Home Medications Medication Instructions Recorded Zolpidem Tartrate [Ambien] 5 mg PO HS 05/25/17 Sennosides/Docusate Sodium 1 tablet PO BID #30 tablet 05/27/17 [Pericolace -] Levothyroxine Sodium [Synthroid] 100 mcg PO DAILY 06/13/17 Pantoprazole Sodium [Protonix -] 40 mg PO DAILY 06/13/17 Tramadol HCl 50 mg PO DAILY 05/21/18 Warfarin Sodium 4 tab PO HS 05/21/18 Docusate Sodium [Colace -] 100 mg PO TID #60 capsule 05/23/18 Metoprolol Succinate [Toprol Xl] 25 mg PO DAILY 10/01/18 Polyethylene Glycol 3350 [Miralax 17 gm PO DAILY 10/01/18 (For Daily Use) -] Active Medications Acetaminophen (Tylenol -) 650 mg PO Q6H PRN PRN Reason: PAIN LEVEL 1-5 Docusate Sodium (Colace -) 100 mg PO TID EUGENE Piperacillin Sod/Tazobactam (Sod 3.375 gm/ Dextrose) 50 mls @ 100 mls/hr IVPB Q8H-IV EUGENE; Protocol Piperacillin Sod/Tazobactam (Sod 3.375 gm/ Dextrose) 50 mls @ 100 mls/hr IVPB Q8H EUGENE Stop: 10/02/18 16:29 Last Admin: 10/02/18 09:34 Dose: 100 mls/hr Lactobacillus Acidophilus (Bacid -) 1 tab PO DAILY [facility] Last Admin: 10/02/18 09:32 Dose: 1 tab Levothyroxine Sodium (Synthroid -) 100 mcg PO DAILY@0700 [facility] Last Admin: 10/01/18 21:45 Dose: 100 mcg Metoprolol Succinate (Toprol Xl -) 25 mg PO DAILY [facility] Last Admin: 10/02/18 09:36 Dose: 25 mg Pantoprazole Sodium (Protonix -) 40 mg PO DAILY [facility] Last Admin: 10/02/18 09:32 Dose: 40 mg Polyethylene Glycol (Miralax (For Daily Use) -) 17 gm PO DAILY [facility] Last Admin: 10/02/18 09:35 Dose: 17 gm Senna/Docusate Sodium (Pericolace -) 1 tablet PO BID [facility] Last Admin: 10/02/18 09:32 Dose: 1 tablet Tramadol HCl (Ultram -) 50 mg PO Q8H PRN PRN Reason: PAIN LEVEL 6-10 Last Admin: 10/02/18 01:35 Dose: 50 mg Zolpidem Tartrate (Ambien -) 5 mg PO HS PRN PRN Reason: INSOMNIA Laboratory Results - last 24 hr 10/01/18 10/01/18 10/01/18 15:15 15:15 15:15 WBC 12.5 H RBC 3.64 Hgb 9.5 L Hct 28.7 L MCV 79.0 L MCH 26.0 MCHC 32.9 RDW 17.6 H Plt Count 319 D MPV 7.1 L Absolute Neuts (auto) 11.1 H Neutrophils % 89.2 H D Lymphocytes % 5.1 L D Monocytes % 4.9 Eosinophils % 0.2 D Basophils % 0.6 Nucleated RBC % 0 ESR PT with INR 44.10 H INR 3.69 H PTT (Actin FS) 58.1 H Sodium 134 L Potassium 4.7 Chloride 102 Carbon Dioxide 26 Anion Gap 7 L BUN 19 H Creatinine 1.4 H Creat Clearance w eGFR 35.57 Random Glucose 84 Lactic Acid Calcium 8.7 Phosphorus Magnesium Total Bilirubin 0.4 AST 21 ALT 14 Alkaline Phosphatase 104 C-Reactive Protein 15.5 H Total Protein 5.8 L Albumin 2.1 L Blood Type Antibody Screen 01/10/01/18 10/01/18 15:15 16:50 20:48 WBC RBC Hgb Hct MCV MCH MCHC RDW Plt Count MPV Absolute Neuts (auto) Neutrophils % Lymphocytes % Monocytes % Eosinophils % Basophils % Nucleated RBC % ESR 97 H PT with INR INR PTT (Actin FS) Sodium Potassium Chloride Carbon Dioxide Anion Gap BUN Creatinine Creat Clearance w eGFR Random Glucose Lactic Acid 2.0 Calcium Phosphorus Magnesium Total Bilirubin AST ALT Alkaline Phosphatase C-Reactive Protein Total Protein Albumin Blood Type A POSITIVE Antibody Screen Negative 10/02/18 10/02/18 10/02/18 06:30 06:30 06:30 WBC 9.0 RBC 3.16 L Hgb 8.2 L Hct 24.9 L MCV 78.8 L MCH 25.9 MCHC 32.9 RDW 17.1 H Plt Count 251 D MPV 6.9 L Absolute Neuts (auto) 7.8 Neutrophils % 86.2 H Lymphocytes % 7.7 L D Monocytes % 5.2 Eosinophils % 0.2 Basophils % 0.7 Nucleated RBC % 0 ESR PT with INR 53.80 H INR 4.49 H* PTT (Actin FS) Sodium 139 Potassium 4.2 Chloride 106 Carbon Dioxide 25 Anion Gap 9 BUN 19 H Creatinine 1.4 H Creat Clearance w eGFR 35.57 Random Glucose 91 Lactic Acid Calcium 7.9 L Phosphorus 2.5 Magnesium 1.8 Total Bilirubin 0.5 AST 17 ALT 11 L Alkaline Phosphatase 88 C-Reactive Protein Total Protein 4.8 L Albumin 1.8 L Blood Type Antibody Screen ASSESSMENT AND PLAN: 87 yof with extensive PMHX as above admitted with RLE cellulitis+/- acute on chronic osteomyelitis -RLE cellulitis with draining wounds , chronic sinus tract, suspected acute on chronic osteomelitis -Right hip/knee/tibia/fibula hardware with extensive orthopedic surgeries -Afib on coumadin -Coumadin coagulopathy -CAD/angina pectoris -HTN -HLD -CKD stage II -GERD -H/o MRSA bacteremia Plan: Outpatient abx failure. Zosyn/vanco, follow up blood/wound cx. Wound care consult Dr. Lacey ID consult ESR/CRP noted MRI in 05/2018, that was limited study, monitor clinical response on abx before additional imaging. Follow up xrays. Orthopedic input based on clinical course. Hold coumadin today (patient reports taking 4 mg on MWF and 2 mg rest days). Suspect elevated INR from antibiotics. Cr around baseline, encourage oral intake. Continue metoprolol. DVTPPX supratherapeutic INR Code status; full, wants her son Eric her HCP Dispo pending clinical improvement. Plan discussed with patient in detail, all questions answered. Plan discussed with nursing
--- NOTE | 2018-10-02 13:17 | PN ---
Physical Exam: SUBJECTIVE: Patient seen and examined by me at bedside. No acute events overnight Patient offers no complaints Patient otherwise denies any fever, chills, nausea, vomiting, abdominal pain, chest pain, palpitations, shortness of breath, headaches, acute vision changes. OBJECTIVE: Vital Signs Period Temp Pulse Resp BP Sys/Toro Pulse Ox Last 24 Hr 98.1 F-100.3 F 72-110 15-22 116-142/56-92 97-100 GENERAL: Awake, alert, and oriented, in no acute distress. EYES: Sclera anicteric, conjunctiva clear. No lid lag. EARS, NOSE, THROAT: Oropharynx clear without exudates. Moist mucous membranes. LUNGS: Breath sounds equal, clear to auscultation bilaterally. No wheezes, and no crackles. No accessory muscle use. HEART: S1S2 irregularly irregular ABDOMEN: Soft, nontender, not distended, normoactive bowel sounds, no guarding, no rebound, no masses. UPPER EXTREMITIES: No peripheral edema. LOWER EXTREMITIES: RLE (+) multiple excoriating wound ulcers with extensive erythema and scaly skin over the lateral aspect of the leg exteding to the knees. No discharge but some foul smelling. (+) Swelling, faint DP/PT pulses LLE: 2+ DP/PT pulses NEUROLOGICAL: No focal deficits Laboratory Results 10/02/18 06:30 10/02/18 06:30 10/02/18 10/02/18 06:30 06:30 PT with INR 53.80 H INR 4.49 H* Total Bilirubin 0.5 AST 17 ALT 11 L Alkaline Phosphatase 88 Total Protein 4.8 L Albumin 1.8 L Active Medications Generic Name Dose Route Start Last Admin Trade Name Freq PRN Reason Stop Dose Admin Acetaminophen 650 mg 10/01/18 19:00 Tylenol - PO Q6H PRN PAIN LEVEL 1-5 Docusate Sodium 100 mg 10/01/18 22:00 Colace - PO TID EUGENE Piperacillin Sod/Tazobactam 50 mls @ 100 mls/hr 10/01/18 19:00 Sod 3.375 gm/ Dextrose IVPB Q8H-IV EUGENE Protocol Piperacillin Sod/Tazobactam 50 mls @ 100 mls/hr 10/02/18 08:00 10/02/18 09:34 Sod 3.375 gm/ Dextrose IVPB 10/02/18 16:29 100 mls/hr Q8H EUGENE Administration Lactobacillus Acidophilus 1 tab 10/01/18 20:00 10/02/18 09:32 Bacid - PO 1 tab DAILY EUGENE Administration Levothyroxine Sodium 100 mcg 10/01/18 19:15 10/01/18 21:45 Synthroid - PO 100 mcg DAILY@0700 EUGENE Administration Metoprolol Succinate 25 mg 10/02/18 10:00 10/02/18 09:36 Toprol Xl - PO 25 mg DAILY EUGENE Administration Pantoprazole Sodium 40 mg 10/01/18 19:00 10/02/18 09:32 Protonix - PO 40 mg DAILY EUGENE Administration Polyethylene Glycol 17 gm 10/01/18 19:45 10/02/18 09:35 Miralax (For Daily Use) - PO 17 gm DAILY EUGENE Administration Senna/Docusate Sodium 1 tablet 10/01/18 22:00 10/02/18 09:32 Pericolace - PO 1 tablet BID EUGENE Administration Tramadol HCl 50 mg 10/01/18 18:52 10/02/18 01:35 Ultram - PO 50 mg Q8H PRN Administration PAIN LEVEL 6-10 Zolpidem Tartrate 5 mg 10/01/18 22:00 Ambien - PO HS PRN INSOMNIA ASSESSMENT/PLAN: Patient is an 87 year old female who was sent from wound clinic by Dr. Lacey for further evaluation of worsening chronic draining RLE wound/ulceration despite outpatient antibiotic therapy. #Chronic RLE Cellulitis -Continue Vanc 1gm, Zosyn 3.375gm -Vasc surg consult ordered -ID consult ordered -Blood/wound cx opending -Tramadol 50 mg PO TID PRN and Tylenol 650 mg PO Q6H PRN for pain -Duplex negative -isolation precautions (h/o MRSA) #Supratherapeutic INR -Suspect elevated INR from antibiotics -Will hold Coumadin and continue to monitor #Atrial fib; EKG shows A. fib, HR ~70s -Hold home med: Coumadin as INR is supratherapeutic -Cont home med: Metoprolol 25 mg PO QD #GERD Cont home med: Protonix 40 mg PO QD #CKD Stage II; Cr 1.4 -at baseline -encourage PO hydration #Hypothyroidism Cont home med: Levothyroxine 100 mg PO QD #Constipation Cont home med: Miralax, Senna, Colace #Prophylaxis DVT- Pt is on Coumadin at home, however INR is supratherapeutic; will hold Coumadin for now. Pt take Coumadin 5 MWF, 2 on other days GI- Protonix 40 mg PO QD #FEN -IVf -Electrolytes wnl -sodium-controlled diet #Disposition -full code as discussed with patient Visit type - Emergency Visit Emergency Visit: Yes ED Registration Date: 10/01/18 Care time: The patient presented to the Emergency Department on the above date and was hospitalized for further evaluation of their emergent condition. - New Patient This patient is new to me today: No - Critical Care Critical Care patient: No
[2018-10-02] MEDS: DOCUSATE SODIUM 100 MG CAPSULE (FP) PO SCH ×2 (15:18→22:01)
[2018-10-02] MEDS ORDERED: BACITRACIN 15 GM TUBE TOPICAL OINTMENT TP ONE (15:45)
[2018-10-02] MEDS ORDERED: PIPERACILLIN/TAZOB 3.375 GM 3.375 GM in DEXTROSE 5%-WATER - 50 ML IVPB ONE ×2 (16:00→21:59)
--- NOTE | 2018-10-02 16:41 | PN ---
Progress Note (short form) - Note Progress Note: surgery We have been asked to evaluate patient for Chronic venous stasis and b/l cellulitis. Pt is an 87yo F with PMH of Afib (on Coumadin), HTN, CKD, HLD presenting to ED for R leg ulceration x 6 years. Per pt and Per Dr. Ceron, pt has had leg ulcerations with minimal healing for 6 years. She has been taking Bactrim for 6 years for prophylaxis and was on Augmentin for the past 2 weeks. Patient is well known by Dr Lacey and followed at the wound care clinic presents from wound care clinic with worsening right LE cellulitis and chronic venous stasis changes. Denies fevers, chills, abdominal pain, n/v/d, numbness/tingling. She has had surgery in the R knee/femur and tibia/fibula. Pt has been unable to ambulate on R leg Patient also has a 2x1cm sinus draining clear ss d/c over lateral aspect of knee that she has been chronic for over 1 year. Vital Signs Temp 98.9 F 10/02/18 13:55 Pulse 75 10/02/18 13:55 Resp 18 10/02/18 10:00 BP 118/51 L 10/02/18 13:55 Pulse Ox 97 10/01/18 23:19 Intake & Output 10/01/18 10/02/18 10/02/18 23:59 11:59 23:59 Intake Total 225 Balance 225 Weight 183 lb 180 lb 14.4 oz Intake: Oral 225 Other: Voiding Method Diaper # Unmeasured Voids Void 3 Bowel Movement No Height 5 ft 7 in 5 ft 7 in Body Mass Index (BMI) 28.6 28.3 Weight Measurement Method Built in [facility] Weight Measurement Method Est/Stated by Patient CBC, BMP 10/02/18 06:30 10/02/18 06:30 PE: A&Ox3, NAD Unlabored resp on RA Right LE contracted at the knee to @110 degrees with scars consistent with orthopedic surgery. sinus over lateral aspect of knee draining clear- pink tinged fluid, Surrounding tissue intact. Diffuse chronic skin changes see throughout with beefy red base, desquimation extending from popliteal fossa over lateral and anterior LE onto dorsum of foot lateral foot and heel. isolated ulcerated area @ 2x3cm over arch of foot. Diffuse tenderness throughout. no foul odor noted. Left LE no ulcers, open skin or rashes. small stage 1 ulcer at medial aspect of heel. B/L Feet warm to touch and well perfused Problem List - Problems (1) Cellulitis Assessment/Plan: Chronic venous stasis ulcers and chronic sinus tract drainage with hardware in situ. No need for vascular surgery intervention. 1) bacitracin and xeroform over desquamated areas. 2) dry dressing over sinus tract 3) compressive wrap with jacki/ elevate leg 4) offload pressure areas. b/l heel pads. 5) Q2 positioning 6) ABX per ID 7) Ortho input appreciated. evaluation and plan discussed with Dr Lacey Code(s): L03.90 - CELLULITIS, UNSPECIFIED
--- NOTE | 2018-10-02 21:58 | PN ---
Progress Note (short form) - Note Progress Note: ID CONSULT DICTATED CELLULITIS R LE CHRONIC VENOUS STASIS DERMATITIS CHRONICALLY INFECTED ORTHOPEDIC HARDWARE/ DRAINING SINUS ON LIFELONG BACTRIM SUPPRESSION PENDING C/S EMPIRIC ZOSYN + STAT DOSE VANCOMYCIN
[2018-10-02] MEDS: ZOLPIDEM TARTRATE 5 MG TABLET PO PRN (22:01)
[2018-10-03] MEDS ORDERED: PIPERACILLIN/TAZOBACTAM 3.375 GM VIAL IVPB ONE ×3 (00:22→16:42)
[2018-10-03] MEDS ORDERED: DEXTROSE 5%-WATER - 50 ML IVPB ONE ×3 (00:22→16:42)
[2018-10-03] MEDS: PIPERACILLIN/TAZOB 3.375 GM 3.375 GM in DEXTROSE 5%-WATER - 50 ML IVPB SCH ×3 (02:39→16:48)
[2018-10-03 03:13] LABS: URINE APPEARANCE SLCLOUDY; URINE BILIRUBIN NEGATIVE (<2.0 mg/dL); URINE COLOR LTYELLOW; URINE GLUCOSE (UA) NEGATIVE (NEGATIVE); URINE KETONE NEGATIVE (NEGATIVE); URINE LEUK ESTERASE 3+ (NEGATIVE); URINE NITRITE NEGATIVE (NEGATIVE); URINE PROTEIN NEGATIVE (NEGATIVE); URINE UROBILINOGEN NEGATIVE mg/dL (0.2-1.0)
[2018-10-03 03:20] LABS: EPI CELLS RARE /HPF (FEW); URINE BACTERIA MODERATE /hpf (NONE SEEN); URINE MUCUS RARE
[2018-10-03] MEDS: traMADol HCL 50 MG TABLET PO PRN (06:02)
[2018-10-03] MEDS: DOCUSATE SODIUM 100 MG CAPSULE (FP) PO SCH ×3 (06:03→13:57)
[2018-10-03] MEDS: LEVOTHYROXINE NA 100 MCG TABLET (FP) PO SCH (06:03)
[2018-10-03 07:43] LABS: HEMATOCRIT 25.9 % (32.4-45.2); HEMOGLOBIN 8.6 GM/dL (10.7-15.3); MCH 26.2 pg (25.7-33.7); MCHC 33.2 g/dl (32.0-36.0); MEAN CELL VOLUME 78.9 fl (80-96); MEAN PLT VOLUME 6.9 fl (7.5-11.1); PLATELET COUNT 283 K/MM3 (134-434); RBC 3.28 M/mm3 (3.60-5.2); RDW 17.5 % (11.6-15.6)
--- NOTE | 2018-10-03 07:58 | PN ---
Physical Exam: SUBJECTIVE: Patient seen and examined by me at bedside Overnight events noted. Patient had fever of 101.[address] Cummins notified and has continued antibiotics with Zosyn and stat dose of Vancomycin OBJECTIVE: Vital Signs Period Temp Pulse Resp BP Sys/Toro Pulse Ox Last 24 Hr 98 F-101.2 F 75-108 18-20 118-158/51-92 98 GENERAL: Awake, alert, in no acute distress. EYES: Sclera anicteric, conjunctiva clear. No lid lag. EARS, NOSE, THROAT: Oropharynx clear without exudates. Moist mucous membranes. LUNGS: Breath sounds equal, clear to auscultation bilaterally. No wheezes, and no crackles. No accessory muscle use. HEART: S1S2 irregularly irregular ABDOMEN: Soft, nontender, not distended, normoactive bowel sounds. UPPER EXTREMITIES: No peripheral edema. LOWER EXTREMITIES: RLE (+) multiple excoriating wound ulcers with extensive erythema and scaly skin over the lateral aspect of the leg exteding to the knees. No discharge but some foul smelling. (+) Swelling, faint DP/PT pulses LLE: 2+ DP/PT pulses NEUROLOGICAL: No focal deficits Laboratory Results 10/03/18 06:30 10/03/18 06:30 Active Medications Generic Name Dose Route Start Last Admin Trade Name Freq PRN Reason Stop Dose Admin Acetaminophen 650 mg 10/01/18 19:00 Tylenol - PO Q6H PRN PAIN LEVEL 1-5 Docusate Sodium 100 mg 10/01/18 22:00 10/03/18 06:03 Colace - PO 100 mg TID [facility] Administration Piperacillin Sod/Tazobactam 50 mls @ 100 mls/hr 10/03/18 02:00 10/03/18 02:39 Sod 3.375 gm/ Dextrose IVPB 100 mls/hr Q8H-IV [facility] Administration Protocol Vancomycin HCl 1,000 mg in 250 mls @ 200 mls/hr 10/03/18 10:00 Vancomycin (Pre-Docked) IVPB Q24H [facility] Protocol Lactobacillus Acidophilus 1 tab 10/01/18 20:00 10/02/18 09:32 Bacid - PO 1 tab DAILY [facility] Administration Levothyroxine Sodium 100 mcg 10/01/18 19:15 10/03/18 06:03 Synthroid - PO 100 mcg DAILY@0700 [facility] Administration Metoprolol Succinate 25 mg 10/02/18 10:00 10/02/18 09:36 Toprol Xl - PO 25 mg DAILY [facility] Administration Pantoprazole Sodium 40 mg 10/01/18 19:00 10/02/18 09:32 Protonix - PO 40 mg DAILY [facility] Administration Polyethylene Glycol 17 gm 10/01/18 19:45 10/02/18 09:35 Miralax (For Daily Use) - PO 17 gm DAILY [facility] Administration Senna/Docusate Sodium 1 tablet 10/01/18 22:00 10/02/18 22:01 Pericolace - PO 1 tablet BID [facility] Administration Tramadol HCl 50 mg 10/01/18 18:52 10/03/18 06:02 Ultram - PO 50 mg Q8H PRN Administration PAIN LEVEL 6-10 Zolpidem Tartrate 5 mg 10/01/18 22:00 10/02/18 22:01 Ambien - PO 5 mg HS PRN Administration INSOMNIA ASSESSMENT/PLAN: Patient is an 87 year old female who was sent from wound clinic by Dr. Lacey for further evaluation of worsening chronic draining RLE wound/ulceration despite outpatient antibiotic therapy. #Chronic RLE Cellulitis -Continue Vanc 1gm, Zosyn 3.375gm -Vasc surg consult ordered -Blood/wound cx opending -Tramadol 50 mg PO TID PRN and Tylenol 650 mg PO Q6H PRN for pain -isolation precautions (h/o MRSA) -Appreciate Vascular consult: Bacitracin and xeroform over desquamated area with dry dressing over sinus tract. Compressive wrap with jacki and elevate leg. Will need to off load pressure areas and bilateral heel pads. -Q2 positioning #Supratherapeutic INR -Suspect elevated INR from antibiotics -Will hold Coumadin and continue to monitor #Atrial fib; EKG shows A. fib, HR ~70s -Hold home med: Coumadin as INR is supratherapeutic -Cont home med: Metoprolol 25 mg PO QD #GERD Cont home med: Protonix 40 mg PO QD #CKD Stage II -at baseline -encourage PO hydration #Hypothyroidism Cont home med: Levothyroxine 100 mg PO QD #Constipation Cont home med: Miralax, Senna, Colace #Prophylaxis DVT- Pt is on Coumadin at home, however INR is supratherapeutic; will hold Coumadin for now. Pt take Coumadin 5 MWF, 2 on other days GI- Protonix 40 mg PO QD #FEN -On no fluids. Tolerating PO -Electrolytes wnl -sodium-controlled diet #Disposition -full code as discussed with patient Visit type - Emergency Visit Emergency Visit: Yes ED Registration Date: 10/01/18 Care time: The patient presented to the Emergency Department on the above date and was hospitalized for further evaluation of their emergent condition. - New Patient This patient is new to me today: No - Critical Care Critical Care patient: No
[2018-10-03 08:18] LABS: INR 3.1 (0.83-1.09)
[2018-10-03 08:19] LABS: ACTIVATED PTT 53.7 SECONDS (25.2-36.5)
[2018-10-03 08:49] LABS: ANION GAP 5 MMOL/L (8-16); BLOOD UREA NITROGEN 16 mg/dL (7-18); CALCIUM 8.4 mg/dL (8.5-10.1); CHLORIDE 104 mmol/L (98-107); CO2 27 mmol/L (21-32); CREATININE 1.3 mg/dL (0.55-1.3); GLUCOSE,RANDOM 83 mg/dL (74-106); POTASSIUM 4.1 mmol/L (3.5-5.1); SODIUM 137 mmol/L (136-145)
[2018-10-03] MEDS: VANCOMYCIN 1 GRAM (PRE-DOCKED) 1,000 MG/250 ML BAG IVPB SCH (10:00)
[2018-10-03] MEDS: metoPROLOL SUCCINATE 25 MG TAB.SR.24H (FP) PO SCH (10:38)
[2018-10-03] MEDS: PANTOPRAZOLE 40 MG TABLET (FP) PO SCH (10:38)
[2018-10-03] MEDS: SENNOSIDES/DOCUSATE COMBO (SENNA PLUS) TABLET (UD) PO SCH ×3 (10:38→21:37)
[2018-10-03] MEDS: LACTOBACILLUS ACIDOPHILUS 1 TABLET PO SCH (10:38)
--- NOTE | 2018-10-03 10:42 | PN ---
Teaching Attending Note Name of Resident: Marycruz Ayon ATTENDING PHYSICIAN STATEMENT I saw and evaluated the patient. I reviewed the resident's note and discussed the case with the resident. I agree with the resident's findings and plan as documented with exceptions below. SUBJECTIVE: Patient seen and examined. right leg pain and foul smell improved. reports fevers last night. overall feels better otherwise. OBJECTIVE: Vital Signs Period Temp Pulse Resp BP Sys/Toro Pulse Ox Last 24 Hr 98.2 F-101.2 F 75-98 18-20 118-158/51-77 98 Intake & Output 09/30/18 10/01/18 10/02/18 10/03/18 23:59 23:59 23:59 23:59 Intake Total 275 Balance 275 Weight 183 lb 180 lb 14.4 oz 172 lb 8 oz General: sitting in bed in no acute distress Chest: CTAB, no rales or wheezing Abdomen:Soft, obese, NT Extremities: RLE erythema/discharge improved, no foul smell noted currently, areas of denuded skin with ulceration over casarez and right lateral tract overall unchanged Home Medications Medication Instructions Recorded Zolpidem Tartrate [Ambien] 5 mg PO HS 05/25/17 Sennosides/Docusate Sodium 1 tablet PO BID #30 tablet 05/27/17 [Pericolace -] Levothyroxine Sodium [Synthroid] 100 mcg PO DAILY 06/13/17 Pantoprazole Sodium [Protonix -] 40 mg PO DAILY 06/13/17 Tramadol HCl 50 mg PO DAILY 05/21/18 Warfarin Sodium 4 tab PO HS 05/21/18 Docusate Sodium [Colace -] 100 mg PO TID #60 capsule 05/23/18 Metoprolol Succinate [Toprol Xl] 25 mg PO DAILY 10/01/18 Polyethylene Glycol 3350 [Miralax 17 gm PO DAILY 10/01/18 (For Daily Use) -] Active Medications Acetaminophen (Tylenol -) 650 mg PO Q6H PRN PRN Reason: PAIN LEVEL 1-5 Docusate Sodium (Colace -) 100 mg PO TID [facility] Last Admin: 10/03/18 06:03 Dose: 100 mg Piperacillin Sod/Tazobactam (Sod 3.375 gm/ Dextrose) 50 mls @ 100 mls/hr IVPB Q8H-IV [facility]; Protocol Last Admin: 10/03/18 02:39 Dose: 100 mls/hr Vancomycin HCl (Vancomycin (Pre-Docked)) 1,000 mg in 250 mls @ 200 mls/hr IVPB Q24H [facility]; Protocol Lactobacillus Acidophilus (Bacid -) 1 tab PO DAILY [facility] Last Admin: 10/03/18 10:38 Dose: 1 tab Levothyroxine Sodium (Synthroid -) 100 mcg PO DAILY@0700 [facility] Last Admin: 10/03/18 06:03 Dose: 100 mcg Metoprolol Succinate (Toprol Xl -) 25 mg PO DAILY [facility] Last Admin: 10/03/18 10:38 Dose: 25 mg Pantoprazole Sodium (Protonix -) 40 mg PO DAILY [facility] Last Admin: 10/03/18 10:38 Dose: 40 mg Polyethylene Glycol (Miralax (For Daily Use) -) 17 gm PO DAILY [facility] Last Admin: 10/02/18 09:35 Dose: 17 gm Senna/Docusate Sodium (Pericolace -) 1 tablet PO BID [facility] Last Admin: 10/03/18 10:38 Dose: 1 tablet Tramadol HCl (Ultram -) 50 mg PO Q8H PRN PRN Reason: PAIN LEVEL 6-10 Last Admin: 10/03/18 06:02 Dose: 50 mg Zolpidem Tartrate (Ambien -) 5 mg PO HS PRN PRN Reason: INSOMNIA Last Admin: 10/02/18 22:01 Dose: 5 mg Laboratory Results - last 24 hr 10/03/18 10/03/18 10/03/18 03:08 06:30 06:30 WBC 9.0 RBC 3.28 L Hgb 8.6 L Hct 25.9 L MCV 78.9 L MCH 26.2 MCHC 33.2 RDW 17.5 H Plt Count 283 MPV 6.9 L PT with INR 37.00 H INR 3.10 H PTT (Actin FS) 53.7 H Sodium Potassium Chloride Carbon Dioxide Anion Gap BUN Creatinine Creat Clearance w eGFR Random Glucose Calcium Urine Color Ltyellow Urine Appearance Slcloudy Urine pH 6.0 Ur Specific [place] 1.009 L Urine Protein Negative Urine Glucose (UA) Negative Urine Ketones Negative Urine Blood Negative Urine Nitrite Negative Urine Bilirubin Negative Urine Urobilinogen Negative Ur Leukocyte Esterase 3+ H D Urine WBC (Auto) 116 Urine RBC (Auto) 9 Ur Epithelial Cells Rare Urine Bacteria Moderate Urine Mucus Rare 10/03/18 06:30 WBC RBC Hgb Hct MCV MCH MCHC RDW Plt Count MPV PT with INR INR PTT (Actin FS) Sodium 137 Potassium 4.1 Chloride 104 Carbon Dioxide 27 Anion Gap 5 L BUN 16 Creatinine 1.3 Creat Clearance w eGFR 38.75 Random Glucose 83 Calcium 8.4 L Urine Color Urine Appearance Urine pH Ur Specific [place] Urine Protein Urine Glucose (UA) Urine Ketones Urine Blood Urine Nitrite Urine Bilirubin Urine Urobilinogen Ur Leukocyte Esterase Urine WBC (Auto) Urine RBC (Auto) Ur Epithelial Cells Urine Bacteria Urine Mucus Microbiology 10/02/18 12:00 Rectal Swab MRSA Screen - Final Mr S Aureus 10/02/18 12:00 Nares - Mrsa Screen - Right MRSA Screen - Final NO MRSA ISOLATED 10/02/18 12:00 Nares - Mrsa Screen - Left MRSA Screen - Final NO MRSA ISOLATED 10/01/18 19:30 Leg - Right Lower Gram Stain - Final 10/01/18 19:30 Leg - Right Lower Wound Culture - Preliminary Staphylococcus Latex Coag Pos Presumptive Ps Aeruginosa Group D Strep Or Entero Coccus 10/01/18 16:50 Blood - Peripheral Venous Blood Culture - Preliminary NO GROWTH OBTAINED AFTER 24 HOURS, INCUBATION TO CONTINUE FOR 4 DAYS. 10/01/18 16:50 Blood - Peripheral Venous Blood Culture - Preliminary NO GROWTH OBTAINED AFTER 24 HOURS, INCUBATION TO CONTINUE FOR 4 DAYS. ASSESSMENT AND PLAN: 87 yof with extensive PMHX as above admitted with RLE cellulitis+/- acute on chronic osteomyelitis -RLE cellulitis with draining wounds , chronic sinus tract, suspected acute on chronic osteomelitis -Right hip/knee/tibia/fibula hardware with extensive orthopedic surgeries -Afib on coumadin -Coumadin coagulopathy, likely from antibiotics -CAD/angina pectoris -HTN -HLD -CKD stage II -GERD -H/o MRSA bacteremia Plan: fevers overnight Zosyn/vanco, wound cx noted, blood cx neg so far. ID/Wound care input appreciated. Clinical exam improved. ESR/CRP noted MRI in 05/2018, that was limited study, monitor clinical response on abx before additional imaging. Follow up xrays. Orthopedic input. Hold coumadin (patient reports taking 4 mg on MWF and 2 mg rest days). Cr around baseline, encourage oral intake. Continue metoprolol. DVTPPX supratherapeutic INR Code status; full, wants her son Eric her HCP Dispo pending clinical improvement. Plan discussed with patient in detail, all questions answered.
[2018-10-03] MEDS: POLYETHYLENE GLYCOL 3350 119 GM BTL PO SCH (10:43)
--- NOTE | 2018-10-03 12:40 | CON.ORTH ---
Consult Reason for Consultation:: right LE chronically infected hardware - Past Medical History Cardio/Vascular: Yes: AFIB, Aneurysm, CHF, HTN Gastrointestinal: Yes: Constipation Renal/: Yes: Renal Inusuff Infectious Disease: Yes: MRSA, Other (chronic hardware infection right leg) Musculoskeletal: Yes: Chronic low back pain, Osteoarthritis Endocrine: Yes: Hypothyroidism - Past Surgical History Past Surgical History: Yes: Joint Replacement - Alcohol/Substance Use Hx Alcohol Use: No History of Substance Use: reports: None - Smoking History Smoking history: Current some day smoker Have you smoked in the past 12 months: No Aproximately how many cigarettes per day: 1 - Social History ADL: Family Assistance History of Recent Travel: No Home Medications - Allergies Allergies/Adverse Reactions: Allergies Allergy/AdvReac Type Severity Reaction Status Date / Time latex Allergy Intermediate Itching Verified 05/25/17 16:48 AND RASH - Home Medications Home Medications: Ambulatory Orders Zolpidem Tartrate [Ambien] 5 mg PO HS 05/25/17 Sennosides/Docusate Sodium [Pericolace -] 1 tablet PO BID #30 tablet 05/27/17 Levothyroxine Sodium [Synthroid] 100 mcg PO DAILY 06/13/17 Pantoprazole Sodium [Protonix -] 40 mg PO DAILY 06/13/17 Tramadol HCl 50 mg PO DAILY 05/21/18 Warfarin Sodium 4 tab PO ASDIR 05/21/18 Docusate Sodium [Colace -] 100 mg PO TID #60 capsule 05/23/18 Metoprolol Succinate [Toprol Xl] 25 mg PO DAILY 10/01/18 Polyethylene Glycol 3350 [Miralax (For Daily Use) -] 17 gm PO DAILY 10/01/18 Family Disease History - Family Disease History Family Disease History: Heart Disease: Mother Physical Exam for Ortho Vital Signs: Vital Signs Temperature 98.3 F 10/03/18 05:00 Pulse Rate 84 10/03/18 05:00 Respiratory Rate 20 10/03/18 05:00 Blood Pressure 127/77 10/03/18 05:00 O2 Sat by Pulse Oximetry (%) 98 10/02/18 20:36 Labs: CBC, BMP 10/03/18 06:30 10/03/18 06:30 INR, PTT INR 3.10 (0.83-1.09) H 10/03/18 06:30 - Lower Extremity Leg: Yes: Right Knee: Yes: Right, Deformity, Limited ROM, Other (+ draining wound, nvi) Imaging - Results X-ray: Report Reviewed, Image Reviewed Assessment/Plan 87F w/ pmhx of AFib (on Coumadin), HTN, diastolic dysfunction, hypothyroidism, CKD, GERD was sent by Dr. Lacey at the wound care clinic for further evaluation of a chronic draining RLE wound s/p Right hip ORIF (08/2013), Right hip removal of hardware- (05/2016), Right [facility] (07/2016), Right tibia fx repair @ [facility]- (05/2017). Pt was recently seen by Dr. Ackerman on and given Augmentin BID x1 week for RLE wound. In addition to Augmentin tx, pt was on Bactrim chronically for the past 3 years. Per son, pt has not noticed any improvement in RLE wound since starting Augmentin 1 week ago. Pt reports that the wound is malodorous, and usually drains serous fluid. Son usually does daily dressing changes at home along with VNS who comes 3x/week. Pt is wheelchair bound. She admits to limited ROM of her RLE due to pain from her chronic excoriating wound ulcers. a/p- Right LE chronically infected hardware with draining wound/cellulitis NTD from ortho standpoint ABX as per ID f/u vascular/wound care d/w Dr. Gutierrez re-consult prn
--- NOTE | 2018-10-03 15:37 | PN ---
Progress Note, Physician History of Present Illness: C/O R LE PAIN WITH MANIPULATION SPIKED TEMP + MALODOROUS SEROUS DRAINAGE WOUND C/S POLYMICROBIAL - Current Medication List Current Medications: Active Medications Acetaminophen (Tylenol -) 650 mg PO Q6H PRN PRN Reason: PAIN LEVEL 1-5 Docusate Sodium (Colace -) [address] [facility] Last Admin: 10/03/18 13:57 Dose: 100 mg Piperacillin Sod/Tazobactam (Sod 3.375 gm/ Dextrose) 50 mls @ 100 mls/hr IVPB Q8H-IV [facility]; Protocol Last Admin: 10/03/18 02:39 Dose: 100 mls/hr Vancomycin HCl (Vancomycin (Pre-Docked)) 1,000 mg in 250 mls @ 200 mls/hr IVPB Q24H [facility]; Protocol Lactobacillus Acidophilus (Bacid -) [address] [facility] Last Admin: 10/03/18 10:38 Dose: 1 tab Levothyroxine Sodium (Synthroid -) 100 mcg PO DAILY@0700 [facility] Last Admin: 10/03/18 06:03 Dose: 100 mcg Metoprolol Succinate (Toprol Xl -) [address] [facility] Last Admin: 10/03/18 10:38 Dose: 25 mg Pantoprazole Sodium (Protonix -) [address] [facility] Last Admin: 10/03/18 10:38 Dose: 40 mg Polyethylene Glycol (Miralax (For Daily Use) -) [address] [facility] Last Admin: 10/03/18 10:43 Dose: Not Given Senna/Docusate Sodium (Pericolace -) [address] [facility] Last Admin: 10/03/18 10:43 Dose: Not Given Tramadol HCl (Ultram -) 50 mg PO Q8H PRN PRN Reason: PAIN LEVEL 6-10 Last Admin: 10/03/18 06:02 Dose: 50 mg Zolpidem Tartrate (Ambien -) 5 mg PO HS PRN PRN Reason: INSOMNIA Last Admin: 10/02/18 22:01 Dose: 5 mg - Objective Vital Signs: Vital Signs Temperature 98.3 F 10/03/18 05:00 Pulse Rate 84 10/03/18 05:00 Respiratory Rate 20 10/03/18 05:00 Blood Pressure 127/77 10/03/18 05:00 O2 Sat by Pulse Oximetry (%) 98 01/17/19 20:36 Constitutional: Yes: No Distress, Obese Eyes: Yes: Conjunctiva Clear Cardiovascular: Yes: Regular Rate and Rhythm, S1, S2 Respiratory: Yes: CTA Bilaterally Gastrointestinal: Yes: Normal Bowel Sounds, Soft. No: Tenderness Musculoskeletal: Yes: Other (R LE CONTRACTED; + SEROUS DRAINAGE FROM R LATERAL THIGH SINUS; DISTAL LATERAL R LE MACERATED AND ULCERATED) Labs: CBC, BMP 10/03/18 06:30 10/03/18 06:30 INR, PTT INR 3.10 (0.83-1.09) H 10/03/18 06:30 Assessment/Plan CELLULITIS R LE CHRONICALLY INFECTED R LE HARDWARE WOUND C/S POLYMICROBIAL INCLUDING MRSA/ PSEUDOMONAS CONTINUE VANCOMYCIN/ ZOSYN LOCAL WOUND CARE
[2018-10-03] MEDS: ACETAMINOPHEN 325 MG TABLET (FP) PO PRN (21:37)
[2018-10-03] MEDS: ZOLPIDEM TARTRATE 5 MG TABLET PO PRN (21:42)
[2018-10-04] MEDS ORDERED: PIPERACILLIN/TAZOBACTAM 3.375 GM VIAL IVPB ONE ×3 (02:19→17:24)
[2018-10-04] MEDS ORDERED: DEXTROSE 5%-WATER - 50 ML IVPB ONE ×3 (02:20→17:24)
[2018-10-04] MEDS: PIPERACILLIN/TAZOB 3.375 GM 3.375 GM in DEXTROSE 5%-WATER - 50 ML IVPB SCH ×3 (03:11→17:39)
[2018-10-04 08:19] LABS: HEMATOCRIT 26.3 % (32.4-45.2); HEMOGLOBIN 8.6 GM/dL (10.7-15.3); MCH 25.9 pg (25.7-33.7); MCHC 32.6 g/dl (32.0-36.0); MEAN CELL VOLUME 79.5 fl (80-96); MEAN PLT VOLUME 6.9 fl (7.5-11.1); PLATELET COUNT 304 K/MM3 (134-434); RBC 3.31 M/mm3 (3.60-5.2); RDW 17.4 % (11.6-15.6); WHITE BLOOD COUNT 7.1 K/mm3 (4.0-10.0)
[2018-10-04 08:40] LABS: ALBUMIN 1.8 g/dl (3.4-5.0); ALK PHOS 83 U/L (45-117); ANION GAP 9 MMOL/L (8-16); BILIRUBIN,TOTAL 0.4 mg/dL (0.2-1); BLOOD UREA NITROGEN 16 mg/dL (7-18); CALCIUM 8.1 mg/dL (8.5-10.1); CHLORIDE 107 mmol/L (98-107); CO2 25 mmol/L (21-32); CREATININE 1.3 mg/dL (0.55-1.3); GLUCOSE,RANDOM 73 mg/dL (74-106); POTASSIUM 3.9 mmol/L (3.5-5.1); SGOT/AST 19 U/L (15-37); SGPT/ALT 12 U/L (13-61); SODIUM 141 mmol/L (136-145); TOT PROT 4.9 g/dl (6.4-8.2)
[2018-10-04 09:14] LABS: INR 2.85 (0.83-1.09)
[2018-10-04] MEDS: LACTOBACILLUS ACIDOPHILUS 1 TABLET PO SCH (10:53)
[2018-10-04] MEDS: SENNOSIDES/DOCUSATE COMBO (SENNA PLUS) TABLET (UD) PO SCH ×2 (10:53→21:41)
[2018-10-04] MEDS: metoPROLOL SUCCINATE 25 MG TAB.SR.24H (FP) PO SCH (10:53)
[2018-10-04] MEDS: POLYETHYLENE GLYCOL 3350 119 GM BTL PO SCH (10:53)
[2018-10-04] MEDS: PANTOPRAZOLE 40 MG TABLET (FP) PO SCH (10:53)
[2018-10-04] MEDS: VANCOMYCIN 1 GRAM (PRE-DOCKED) 1,000 MG/250 ML BAG IVPB SCH (10:54)
--- NOTE | 2018-10-04 14:03 | PN ---
Physical Exam: SUBJECTIVE: Patient seen and examined, right leg symptoms markedly improved, no fevers/chills. OBJECTIVE: Vital Signs Period Temp Pulse Resp BP Sys/Toro Pulse Ox Last 24 Hr 97.9 F-98.4 F 78-84 18-20 124-127/62-72 Intake & Output 10/01/18 10/02/18 10/03/18 10/04/18 23:59 23:59 23:59 23:59 Intake Total 275 675 Balance 275 675 Weight 183 lb 180 lb 14.4 oz 172 lb 8 oz 170 lb 4 oz GENERAL: The patient is awake, alert, and fully oriented, in no acute distress. HEAD: Normal with no signs of trauma. EYES: PERRL, extraocular movements intact, sclera anicteric, conjunctiva clear. No ptosis. ENT: Ears normal, nares patent, oropharynx clear without exudates, moist mucous membranes. NECK: Trachea midline, full range of motion, supple. LUNGS: positive air entry, no rales or wheezing HEART: S1S2 irregularly irregular ABDOMEN: Soft, nontender, nondistended, normoactive bowel sounds, no guarding, no rebound EXTREMITIES: Right thigh edema markedly improved, no active drainage from right thigh/lateral knee sinus tract, Right leg edema/swelling improved, dry ulceration with no active discharge PSYCH: Normal mood, normal affect. SKIN: Warm, dry, normal turgor, no rashes or lesions noted Laboratory Results - last 24 hr 10/04/18 10/04/18 10/04/18 07:15 07:30 08:48 WBC 7.1 RBC 3.31 L Hgb 8.6 L Hct 26.3 L MCV 79.5 L MCH 25.9 MCHC 32.6 RDW 17.4 H Plt Count 304 MPV 6.9 L PT with INR 34.00 H INR 2.85 H Sodium 141 Potassium 3.9 Chloride 107 Carbon Dioxide 25 Anion Gap 9 BUN 16 Creatinine 1.3 Creat Clearance w eGFR 38.75 Random Glucose 73 L Calcium 8.1 L Total Bilirubin 0.4 AST 19 ALT 12 L Alkaline Phosphatase 83 Total Protein 4.9 L Albumin 1.8 L Active Medications Generic Name Dose Route Start Last Admin Trade Name Freq PRN Reason Stop Dose Admin Acetaminophen 650 mg 10/01/18 19:00 10/03/18 21:37 Tylenol - PO 650 mg Q6H PRN Administration PAIN LEVEL 1-5 Docusate Sodium 100 mg 10/01/18 22:00 10/03/18 13:57 Colace - PO 100 mg TID [facility] Administration Piperacillin Sod/Tazobactam 50 mls @ 100 mls/hr 10/03/18 02:00 10/04/18 10:52 Sod 3.375 gm/ Dextrose IVPB 100 mls/hr Q8H-IV [facility] Administration Protocol Vancomycin HCl 1,000 mg in 250 mls @ 200 mls/hr 10/03/18 10:00 10/04/18 10:54 Vancomycin (Pre-Docked) IVPB 200 mls/hr Q24H [facility] Administration Protocol Lactobacillus Acidophilus 1 tab 10/01/18 20:00 10/04/18 10:53 Bacid - PO 1 tab DAILY [facility] Administration Levothyroxine Sodium 100 mcg 10/01/18 19:15 10/03/18 06:03 Synthroid - PO 100 mcg DAILY@0700 [facility] Administration Metoprolol Succinate 25 mg 10/02/18 10:00 10/04/18 10:53 Toprol Xl - PO 25 mg DAILY [facility] Administration Pantoprazole Sodium 40 mg 10/01/18 19:00 10/04/18 10:53 Protonix - PO 40 mg DAILY [facility] Administration Polyethylene Glycol 17 gm 10/01/18 19:45 10/04/18 10:53 Miralax (For Daily Use) - PO Not Given DAILY [facility] Senna/Docusate Sodium 1 tablet 10/01/18 22:00 10/04/18 10:53 Pericolace - PO 1 tablet BID [facility] Administration Tramadol HCl 50 mg 10/01/18 18:52 10/03/18 06:02 Ultram - PO 50 mg Q8H PRN Administration PAIN LEVEL 6-10 Warfarin Sodium 2 mg 10/04/18 18:00 Coumadin - PO DAILY@1800 [facility] Zolpidem Tartrate 5 mg 10/01/18 22:00 10/03/18 21:42 Ambien - PO 5 mg HS PRN Administration INSOMNIA Microbiology 10/01/18 19:30 Leg - Right Lower Gram Stain - Final 10/01/18 19:30 Leg - Right Lower Wound Culture - Final Mr S Aureus Pseudomonas Aeruginosa Alpha Hemolytic Streptococcus 10/03/18 03:08 Urine - Urine Clean Catch Urine Culture - Preliminary Non Lactose Fermenting Gnb 10/01/18 16:50 Blood - Peripheral Venous Blood Culture - Preliminary NO GROWTH OBTAINED AFTER 48 HOURS, INCUBATION TO CONTINUE FOR 3 DAYS. 10/01/18 16:50 Blood - Peripheral Venous Blood Culture - Preliminary NO GROWTH OBTAINED AFTER 48 HOURS, INCUBATION TO CONTINUE FOR 3 DAYS. 10/02/18 12:00 Rectal Swab MRSA Screen - Final S Aureus 10/02/18 12:00 Nares - Mrsa Screen - Right MRSA Screen - Final NO MRSA ISOLATED 10/02/18 12:00 Nares - Mrsa Screen - Left MRSA Screen - Final NO MRSA ISOLATED ASSESSMENT/PLAN: 87 yof with extensive PMHX as above admitted with RLE cellulitis+/- acute on chronic osteomyelitis -RLE cellulitis with draining wounds , chronic sinus tract, suspected acute on chronic osteomelitis -Right hip/knee/tibia/fibula hardware with extensive orthopedic surgeries -Afib on coumadin -Coumadin coagulopathy, likely from antibiotics -CAD/angina pectoris -HTN -HLD -CKD stage II -GERD -H/o MRSA bacteremia Plan: Zosyn/vanco day 3, ID input noted, Wound cx noted. No further fevers, Vanco levels in AM Discuss with ID about possible transition to levaquin/doxycycline. Wound care input appreciated. Clinical exam markedly improved. ESR/CRP noted MRI in 05/2018, that was limited study, monitor clinical response on abx before additional imaging. Follow up xrays. Orthopedic input. INR therapeutic, resume coumadin at 2 mg now. Cr around baseline, encourage oral intake. Continue metoprolol. DVTPPX On AC. Code status; full, wants her son Eric her HCP Dispo pending clinical improvement in 1-2 days per ID recs if no further fevers and continues to improve. Plan discussed with patient and nurse in detail, all questions answered. Visit type - Emergency Visit Emergency Visit: Yes ED Registration Date: 10/01/18 Care time: The patient presented to the Emergency Department on the above date and was hospitalized for further evaluation of their emergent condition. - New Patient This patient is new to me today: No - Critical Care Critical Care patient: No - Discharge Referral Referred to [id number] No
[2018-10-04] MEDS: DOCUSATE SODIUM 100 MG CAPSULE (FP) PO SCH ×2 (14:49→21:41)
[2018-10-04] MEDS: traMADol HCL 50 MG TABLET PO PRN (14:52)
[2018-10-04] MEDS: WARFARIN NA 2 MG TABLET (UD) PO SCH (17:38)
[2018-10-04] MEDS: ZOLPIDEM TARTRATE 5 MG TABLET PO PRN (21:45)
[2018-10-05] MEDS: traMADol HCL 50 MG TABLET PO PRN ×3 (00:24→21:55)
[2018-10-05] MEDS ORDERED: PIPERACILLIN/TAZOBACTAM 3.375 GM VIAL IVPB ONE ×3 (02:05→18:00)
[2018-10-05] MEDS: PIPERACILLIN/TAZOB 3.375 GM 3.375 GM in DEXTROSE 5%-WATER - 50 ML IVPB SCH ×3 (02:20→18:07)
[2018-10-05] MEDS: LEVOTHYROXINE NA 100 MCG TABLET (FP) PO SCH (06:09)
[2018-10-05] MEDS: DOCUSATE SODIUM 100 MG CAPSULE (FP) PO SCH ×3 (06:09→21:55)
[2018-10-05 07:08] LABS: BASO % 0.9 % (0-2.0); EOS % 0.7 % (0-4.5); HEMATOCRIT 26.9 % (32.4-45.2); HEMOGLOBIN 8.7 GM/dL (10.7-15.3); LYMPH % 13.7 % (8-40); MCH 25.6 pg (25.7-33.7); MCHC 32.2 g/dl (32.0-36.0); MEAN CELL VOLUME 79.7 fl (80-96); MEAN PLT VOLUME 6.8 fl (7.5-11.1); MONO % 5.7 % (3.8-10.2); PLATELET COUNT 300 K/MM3 (134-434); RBC 3.38 M/mm3 (3.60-5.2); RDW 17.6 % (11.6-15.6); WHITE BLOOD COUNT 7.8 K/mm3 (4.0-10.0)
[2018-10-05 07:36] LABS: INR 2.55 (0.83-1.09); PROTHROMBIN TIME (PATIENT) 30.4 SEC (9.7-13.0)
[2018-10-05] MEDS: LACTOBACILLUS ACIDOPHILUS 1 TABLET PO SCH (10:37)
[2018-10-05] MEDS: SENNOSIDES/DOCUSATE COMBO (SENNA PLUS) TABLET (UD) PO SCH ×2 (10:37→21:55)
[2018-10-05] MEDS: metoPROLOL SUCCINATE 25 MG TAB.SR.24H (FP) PO SCH (10:38)
[2018-10-05] MEDS: PANTOPRAZOLE 40 MG TABLET (FP) PO SCH (10:38)
[2018-10-05] MEDS: VANCOMYCIN 1 GRAM (PRE-DOCKED) 1,000 MG/250 ML BAG IVPB SCH (10:44)
[2018-10-05] MEDS: POLYETHYLENE GLYCOL 3350 119 GM BTL PO SCH (10:52)
--- NOTE | 2018-10-05 11:33 | PN ---
Physical Exam: SUBJECTIVE: Patient seen and examined, right leg symptoms improved, no further fevers. OBJECTIVE: Vital Signs Period Temp Pulse Resp BP Sys/Toro Pulse Ox Last 24 Hr 98.0 F-98.7 F 75-90 18-20 121-131/60-77 97 GENERAL: The patient is awake, alert, and fully oriented, in no acute distress. HEAD: Normal with no signs of trauma. EYES: PERRL, extraocular movements intact, sclera anicteric, conjunctiva clear. No ptosis. ENT: Ears normal, nares patent, oropharynx clear without exudates, moist mucous membranes. NECK: Trachea midline, full range of motion, supple. LUNGS: positive air entry, no rales or wheezing HEART: S1S2 irregularly irregular ABDOMEN: Soft, nontender, nondistended, normoactive bowel sounds, no guarding, no rebound EXTREMITIES: Right thigh edema markedly improved, no active drainage from right thigh/lateral knee sinus tract, Right leg edema/swelling improved, dry ulceration with denuded skin lower 1/3rd leg, ulceration over posterior heel, and casarez,with no active discharge, mild foul smell PSYCH: Normal mood, normal affect. SKIN: Warm, dry, normal turgor, no rashes or lesions noted Laboratory Results - last 24 hr 10/05/18 10/05/18 10/05/18 06:25 06:25 09:15 WBC 7.8 RBC 3.38 L Hgb 8.7 L Hct 26.9 L MCV 79.7 L MCH 25.6 L MCHC 32.2 RDW 17.6 H Plt Count 300 MPV 6.8 L Absolute Neuts (auto) 6.2 Neutrophils % 79.0 Lymphocytes % 13.7 D Monocytes % 5.7 Eosinophils % 0.7 D Basophils % 0.9 Nucleated RBC % 0 PT with INR 30.40 H INR 2.55 H Vancomycin Pre-Dose 16.8 L Active Medications Generic Name Dose Route Start Last Admin Trade Name Freq PRN Reason Stop Dose Admin Acetaminophen 650 mg 10/01/18 19:00 10/03/18 21:37 Tylenol - PO 650 mg Q6H PRN Administration PAIN LEVEL 1-5 Docusate Sodium 100 mg 10/01/18 22:00 10/05/18 06:09 Colace - PO 100 mg TID EUGENE Administration Piperacillin Sod/Tazobactam 50 mls @ 100 mls/hr 10/03/18 02:00 10/05/18 10:38 Sod 3.375 gm/ Dextrose IVPB 100 mls/hr Q8H-IV EUGENE Administration Protocol Vancomycin HCl 1,000 mg in 250 mls @ 200 mls/hr 10/03/18 10:00 10/05/18 10:44 Vancomycin (Pre-Docked) IVPB 200 mls/hr Q24H EUGENE Administration Protocol Lactobacillus Acidophilus 1 tab 10/01/18 20:00 10/05/18 10:37 Bacid - PO 1 tab DAILY EUGENE Administration Levothyroxine Sodium 100 mcg 10/01/18 19:15 10/05/18 06:09 Synthroid - PO 100 mcg DAILY@0700 EUGENE Administration Metoprolol Succinate 25 mg 10/02/18 10:00 10/05/18 10:38 Toprol Xl - PO 25 mg DAILY EUGENE Administration Pantoprazole Sodium 40 mg 10/01/18 19:00 10/05/18 10:38 Protonix - PO 40 mg DAILY EUGENE Administration Polyethylene Glycol 17 gm 10/01/18 19:45 10/05/18 10:52 Miralax (For Daily Use) - PO 17 gm DAILY EUGENE Administration Senna/Docusate Sodium 1 tablet 10/01/18 22:00 10/05/18 10:37 Pericolace - PO 1 tablet BID EUGENE Administration Tramadol HCl 50 mg 10/05/18 00:13 10/05/18 11:31 Ultram - PO 50 mg Q8H PRN Administration PAIN LEVEL 6-10 Warfarin Sodium 2 mg 10/04/18 18:00 10/04/18 17:38 Coumadin - PO 2 mg DAILY@1800 EUGENE Administration Zolpidem Tartrate 5 mg 10/01/18 22:00 10/04/18 21:45 Ambien - PO 5 mg HS PRN Administration INSOMNIA Microbiology 10/03/18 03:08 Urine - Urine Clean Catch Urine Culture - Final Acinetobacter Baumannii/Haemol 10/01/18 16:50 Blood - Peripheral Venous Blood Culture - Preliminary NO GROWTH OBTAINED AFTER 72 HOURS, INCUBATION TO CONTINUE FOR 2 DAYS. 10/01/18 16:50 Blood - Peripheral Venous Blood Culture - Preliminary NO GROWTH OBTAINED AFTER 72 HOURS, INCUBATION TO CONTINUE FOR 2 DAYS. 10/01/18 19:30 Leg - Right Lower Gram Stain - Final 10/01/18 19:30 Leg - Right Lower Wound Culture - Final S Aureus Pseudomonas Aeruginosa Alpha Hemolytic Streptococcus 10/02/18 12:00 Rectal Swab MRSA Screen - Final S Aureus 10/02/18 12:00 Nares - Mrsa Screen - Right MRSA Screen - Final NO MRSA ISOLATED 10/02/18 12:00 Nares - Mrsa Screen - Left MRSA Screen - Final NO MRSA ISOLATED ASSESSMENT/PLAN: 87 yof with extensive PMHX as above admitted with RLE cellulitis+/- acute on chronic osteomyelitis -RLE cellulitis with draining wounds , chronic sinus tract, suspected acute on chronic osteomelitis -Right hip/knee/tibia/fibula hardware with extensive orthopedic surgeries -Afib on coumadin -Coumadin coagulopathy, likely from antibiotics -CAD/angina pectoris -HTN -HLD -CKD stage II -GERD -H/o MRSA bacteremia Plan: Zosyn/vanco day 4, ID input noted, Wound cx noted. No further fevers, Vanco levels noted Discuss with ID about possible transition to oral abx, ? levaquin/doxycycline in 24 hours. Wound care/Orthopedic input appreciated. Clinical exam markedly improved. ESR/CRP noted MRI in 05/2018, that was limited study, monitor clinical response on abx before additional imaging. Follow up xrays. Orthopedic input. INR therapeutic, resume coumadin at 2 mg now. Cr around baseline, encourage oral intake. Continue metoprolol. DVTPPX On AC. Code status; full, wants her son Eric her HCP Dispo pending clinical improvement in 24 hours per ID recs if no further fevers and continues to improve. Plan discussed with patient and nurse in detail, all questions answered. Discussed with CM, dispo plan for home with PT/VNS pending abx needs. Visit type - Emergency Visit Emergency Visit: Yes ED Registration Date: 10/01/18 Care time: The patient presented to the Emergency Department on the above date and was hospitalized for further evaluation of their emergent condition. - New Patient This patient is new to me today: No - Critical Care Critical Care patient: No - Discharge Referral Referred to [facility] Med [facility] No
[2018-10-05] MEDS ORDERED: DEXTROSE 5%-WATER - 50 ML IVPB ONE (18:00)
[2018-10-05] MEDS: WARFARIN NA 2 MG TABLET (UD) PO SCH (18:06)
[2018-10-05] MEDS: ZOLPIDEM TARTRATE 5 MG TABLET PO PRN (21:55)
[2018-10-06] MEDS ORDERED: DEXTROSE 5%-WATER - 50 ML IVPB ONE ×2 (01:25→17:31)
[2018-10-06] MEDS ORDERED: PIPERACILLIN/TAZOBACTAM 3.375 GM VIAL IVPB ONE ×3 (01:25→17:30)
[2018-10-06] MEDS: PIPERACILLIN/TAZOB 3.375 GM 3.375 GM in DEXTROSE 5%-WATER - 50 ML IVPB SCH ×3 (01:48→17:32)
[2018-10-06] MEDS: LEVOTHYROXINE NA 100 MCG TABLET (FP) PO SCH (06:22)
[2018-10-06] MEDS: DOCUSATE SODIUM 100 MG CAPSULE (FP) PO SCH ×3 (06:23→22:05)
[2018-10-06 07:32] LABS: BASO % 0.9 % (0-2.0); EOS % 0.8 % (0-4.5); HEMATOCRIT 27.5 % (32.4-45.2); LYMPH % 16.8 % (8-40); MCH 26.2 pg (25.7-33.7); MCHC 32.8 g/dl (32.0-36.0); MEAN CELL VOLUME 79.9 fl (80-96); MEAN PLT VOLUME 6.5 fl (7.5-11.1); MONO % 6.2 % (3.8-10.2); NEUT % 75.3 % (42.8-82.8); PLATELET COUNT 301 K/MM3 (134-434); RBC 3.45 M/mm3 (3.60-5.2); RDW 17.3 % (11.6-15.6); WHITE BLOOD COUNT 8.2 K/mm3 (4.0-10.0)
[2018-10-06 07:46] LABS: INR 2.34 (0.83-1.09); PROTHROMBIN TIME (PATIENT) 27.9 SEC (9.7-13.0)
[2018-10-06] MEDS: VANCOMYCIN 1 GRAM (PRE-DOCKED) 1,000 MG/250 ML BAG IVPB SCH (09:16)
[2018-10-06] MEDS: LACTOBACILLUS ACIDOPHILUS 1 TABLET PO SCH (09:17)
[2018-10-06] MEDS: SENNOSIDES/DOCUSATE COMBO (SENNA PLUS) TABLET (UD) PO SCH ×2 (09:17→22:05)
[2018-10-06] MEDS: traMADol HCL 50 MG TABLET PO PRN ×2 (09:17→18:04)
[2018-10-06] MEDS: metoPROLOL SUCCINATE 25 MG TAB.SR.24H (FP) PO SCH (09:17)
[2018-10-06] MEDS: PANTOPRAZOLE 40 MG TABLET (FP) PO SCH (09:18)
[2018-10-06] MEDS: POLYETHYLENE GLYCOL 3350 119 GM BTL PO SCH (09:23)
[2018-10-06 11:18] LABS: ACANTHOCYTES 0; ANISOCYTOSIS 0; HELMET CELLS 0; HOWELL-JOLLY BODIES 0; MACROCYTOSIS 0; OVALOCYTE 0; PLATELET ESTIMATE NORMAL; ROULEAU 0; SICKELED CELLS 0; TARGET CELLS 0; TEAR DROP CELLS 0; TOXIC GRANULATION 0
--- NOTE | 2018-10-06 12:07 | PN ---
Teaching Attending Note Name of Resident: Marycruz Ayon ATTENDING PHYSICIAN STATEMENT I saw and evaluated the patient. I reviewed the resident's note and discussed the case with the resident. I agree with the resident's findings and plan as documented with exceptions below. SUBJECTIVE: Patient seen and examined. right leg symptoms improved, no fevers/chills. OBJECTIVE: Vital Signs Period Temp Pulse Resp BP Sys/Toro Pulse Ox Last 24 Hr 98.0 F-98.6 F 68-78 20-20 130-132/62-80 97 Intake & Output 10/03/18 10/04/18 10/05/18 10/06/18 23:59 23:59 23:59 23:59 Intake Total 925 800 50 Balance 925 800 50 Weight 172 lb 8 oz 170 lb 4 oz 172 lb 2 oz General: sitting in bed in no acute distress NECK: Trachea midline, full range of motion, supple. LUNGS: positive air entry, no rales or wheezing HEART: S1S2 irregularly irregular ABDOMEN: Soft, nontender, nondistended, normoactive bowel sounds, no guarding, no rebound EXTREMITIES: Right thigh edema markedly improved, no active drainage from right thigh/lateral knee sinus tract, Right leg edema/swelling improved, dry ulceration with denuded skin lower 1/3rd leg, ulceration over posterior heel, and casarez,with no active discharge, mild foul smell, improved exam PSYCH: Normal mood, normal affect. SKIN: Warm, dry, normal turgor, no rashes or lesions noted Laboratory Results - last 24 hr 10/06/18 10/06/18 07:00 07:00 WBC 8.2 RBC 3.45 L Hgb 9.0 L Hct 27.5 L MCV 79.9 L MCH 26.2 MCHC 32.8 RDW 17.3 H Plt Count 301 MPV 6.5 L Absolute Neuts (auto) 6.2 Neutrophils % 75.3 Lymphocytes % 16.8 D Monocytes % 6.2 Eosinophils % 0.8 Basophils % 0.9 Nucleated RBC % 0 PT with INR 27.90 H INR 2.34 H ASSESSMENT AND PLAN: 87 yof with extensive PMHX as above admitted with RLE cellulitis+/- acute on chronic osteomyelitis -RLE cellulitis with draining wounds , chronic sinus tract, suspected acute on chronic osteomelitis -Right hip/knee/tibia/fibula hardware with extensive orthopedic surgeries -Afib on coumadin -Coumadin coagulopathy, likely from antibiotics -CAD/angina pectoris -HTN -HLD -CKD stage II -GERD -H/o MRSA bacteremia Plan: Zosyn/vanco day 5, ID input noted, Wound cx noted. No further fevers, Vanco levels noted Discuss with ID for transition to PO abx, ?levaquin/doxycyline Wound care/Orthopedic input appreciated. Clinical exam markedly improved. ESR/CRP noted MRI in 05/2018, that was limited study, monitor clinical response on abx before additional imaging. Follow up xrays. Orthopedic input. INR therapeutic, resumed coumadin at 2 mg now. Cr around baseline, encourage oral intake. Continue metoprolol. DVTPPX On AC. Code status; full, wants her son Eric her HCP Dispo patient has home care during the daytime, son stays at night, VNS and uses amb[facility]lette for doctor visits. Discuss with CM to resume disposition arrangements, pending ID input and abx needs.
[2018-10-06] MEDS: WARFARIN NA 2 MG TABLET (UD) PO SCH (17:32)
--- NOTE | 2018-10-06 19:08 | PN ---
Physical Exam: SUBJECTIVE: Patient seen and examined by me at bedside No acute events overnight Offers no complaints Otherwise, denies any fever, chills, nausea, vomiting, abdominal pain, chest pain, palpitations, shortness of breath, urinary or bowel symptoms, diarrhea, constipation OBJECTIVE: Vital Signs Period Temp Pulse Resp BP Sys/Toro Pulse Ox Last 24 Hr 98.0 F-98.6 F 64-77 20-20 131-143/59-80 95-97 GENERAL: Awake, alert, in no acute distress. EYES: Sclera anicteric, conjunctiva clear. No lid lag. ENT: Oropharynx clear without exudates. Moist mucous membranes. LUNGS: Breath sounds equal, clear to auscultation bilaterally. No wheezes, and no crackles. No accessory muscle use. HEART: S1S2 irregularly irregular ABDOMEN: Soft, nontender, not distended, normoactive bowel sounds. LOWER EXTREMITIES: RLE (+) multiple excoriating wound ulcers with extensive erythema and scaly skin over the lateral aspect of the leg exteding to the knees. No discharge but some foul smelling. (+) Swelling, faint DP/PT pulses LLE: 2+ DP/PT pulses NEUROLOGICAL: No focal deficits Laboratory Results 10/06/18 07:00 10/04/18 07:15 Active Medications Generic Name Dose Route Start Last Admin Trade Name Dellq PRN Reason Stop Dose Admin Acetaminophen 650 mg 10/01/18 19:00 10/03/18 21:37 Tylenol - PO 650 mg Q6H PRN Administration PAIN LEVEL 1-5 Docusate Sodium 100 mg 10/01/18 22:00 10/06/18 15:04 Colace - PO 100 mg TID EUGENE Administration Piperacillin Sod/Tazobactam 50 mls @ 100 mls/hr 10/03/18 02:00 10/06/18 17:32 Sod 3.375 gm/ Dextrose IVPB 100 mls/hr Q8H-IV EUGENE Administration Protocol Vancomycin HCl 1,000 mg in 250 mls @ 200 mls/hr 10/03/18 10:00 10/06/18 09:16 Vancomycin (Pre-Docked) IVPB 200 mls/hr Q24H EUGENE Administration Protocol Lactobacillus Acidophilus 1 tab 10/01/18 20:00 10/06/18 09:17 Bacid - PO 1 tab DAILY EUGENE Administration Levothyroxine Sodium 100 mcg 10/01/18 19:15 10/06/18 06:22 Synthroid - PO 100 mcg DAILY@0700 EUGENE Administration Metoprolol Succinate 25 mg 10/02/18 10:00 10/06/18 09:17 Toprol Xl - PO 25 mg DAILY EUGENE Administration Pantoprazole Sodium 40 mg 10/01/18 19:00 10/06/18 09:18 Protonix - PO 40 mg DAILY EUGENE Administration Polyethylene Glycol 17 gm 10/01/18 19:45 10/06/18 09:23 Miralax (For Daily Use) - PO 17 gm DAILY EUGENE Administration Senna/Docusate Sodium 1 tablet 10/01/18 22:00 10/06/18 09:17 Pericolace - PO 1 tablet BID EUGENE Administration Tramadol HCl 50 mg 10/05/18 00:13 10/06/18 18:04 Ultram - PO 50 mg Q8H PRN Administration PAIN LEVEL 6-10 Warfarin Sodium 2 mg 10/04/18 18:00 10/06/18 17:32 Coumadin - PO 2 mg DAILY@1800 EUGENE Administration Zolpidem Tartrate 5 mg 10/01/18 22:00 10/05/18 21:55 Ambien - PO 5 mg HS PRN Administration INSOMNIA ASSESSMENT/PLAN: Patient is an 87 year old female who was sent from wound clinic by Dr. Lacey for further evaluation of worsening chronic draining RLE wound/ulceration despite outpatient antibiotic therapy. #Chronic RLE Cellulitis -Continue Vanc 1gm, Zosyn 3.375gm day #5. Will transition to PO, as per ID -blood cultures negative, wound cultures positive for MRSA, pseudomonas and alpha hemolytic strep -Tramadol 50 mg PO TID PRN and Tylenol 650 mg PO Q6H PRN for pain -isolation precautions (h/o MRSA) -Appreciate Vascular consult: Bacitracin and xeroform over desquamated area with dry dressing over sinus tract. Compressive wrap with jacki and elevate leg. Will need to off load pressure areas and bilateral heel pads. -Q2 positioning #Supratherapeutic INR- Improving -Suspect elevated INR from antibiotics -Continue Coumadin 2mg daily #Atrial Fibrillation -Continue Coumadin 2mg -Continue Metoprolol 25 mg PO QD #GERD Cont home med: Protonix 40 mg PO QD #CKD Stage II -at baseline -encourage PO hydration #Hypothyroidism Cont home med: Levothyroxine 100 mg PO QD #Constipation Cont home med: Miralax, Senna, Colace #Prophylaxis Warfarin 2mg for DVT Protonix 40 mg PO QD for GI #FEN -On no fluids. Tolerating PO -Electrolytes wnl -sodium-controlled diet #Disposition -full code as discussed with patient Marycruz Ayon [id number] Visit type - Emergency Visit Emergency Visit: Yes ED Registration Date: 10/01/18 Care time: The patient presented to the Emergency Department on the above date and was hospitalized for further evaluation of their emergent condition. - New Patient This patient is new to me today: No - Critical Care Critical Care patient: No
[2018-10-06] MEDS: ZOLPIDEM TARTRATE 5 MG TABLET PO PRN (22:05)
[2018-10-07] MEDS: ACETAMINOPHEN 325 MG TABLET (FP) PO PRN (02:05)
[2018-10-07] MEDS ORDERED: DEXTROSE 5%-WATER - 50 ML IVPB ONE ×2 (02:36→09:50)
[2018-10-07] MEDS ORDERED: PIPERACILLIN/TAZOBACTAM 3.375 GM VIAL IVPB ONE ×2 (02:36→09:50)
[2018-10-07] MEDS: PIPERACILLIN/TAZOB 3.375 GM 3.375 GM in DEXTROSE 5%-WATER - 50 ML IVPB SCH ×3 (02:49→09:51)
[2018-10-07] MEDS: DOCUSATE SODIUM 100 MG CAPSULE (FP) PO SCH ×2 (06:13→15:31)
[2018-10-07] MEDS: LEVOTHYROXINE NA 100 MCG TABLET (FP) PO SCH (06:14)
[2018-10-07 07:57] LABS: BASO % 0.8 % (0-2.0); EOS % 0.9 % (0-4.5); HEMATOCRIT 25.8 % (32.4-45.2); HEMOGLOBIN 8.3 GM/dL (10.7-15.3); MCH 25.9 pg (25.7-33.7); MCHC 32.4 g/dl (32.0-36.0); MEAN PLT VOLUME 6.7 fl (7.5-11.1); MONO % 5.3 % (3.8-10.2); PLATELET COUNT 277 K/MM3 (134-434); RBC 3.22 M/mm3 (3.60-5.2); RDW 17.1 % (11.6-15.6); WHITE BLOOD COUNT 8.5 K/mm3 (4.0-10.0)
[2018-10-07 08:12] LABS: ALBUMIN 1.7 g/dl (3.4-5.0); ALK PHOS 79 U/L (45-117); ANION GAP 9 MMOL/L (8-16); BILIRUBIN,TOTAL 0.4 mg/dL (0.2-1); BLOOD UREA NITROGEN 14 mg/dL (7-18); CALCIUM 7.9 mg/dL (8.5-10.1); CHLORIDE 105 mmol/L (98-107); CO2 25 mmol/L (21-32); CREATININE 1.2 mg/dL (0.55-1.3); GLUCOSE,RANDOM 87 mg/dL (74-106); POTASSIUM 3.3 mmol/L (3.5-5.1); SGOT/AST 9 U/L (15-37); SGPT/ALT 8 U/L (13-61); SODIUM 139 mmol/L (136-145); TOT PROT 4.8 g/dl (6.4-8.2)
[2018-10-07] MEDS: VANCOMYCIN 1 GRAM (PRE-DOCKED) 1,000 MG/250 ML BAG IVPB SCH (09:51)
[2018-10-07] MEDS: PANTOPRAZOLE 40 MG TABLET (FP) PO SCH (09:51)
[2018-10-07] MEDS: SENNOSIDES/DOCUSATE COMBO (SENNA PLUS) TABLET (UD) PO SCH (09:51)
[2018-10-07] MEDS: metoPROLOL SUCCINATE 25 MG TAB.SR.24H (FP) PO SCH (09:52)
[2018-10-07] MEDS: traMADol HCL 50 MG TABLET PO PRN (09:52)
[2018-10-07] MEDS: LACTOBACILLUS ACIDOPHILUS 1 TABLET PO SCH (09:54)
[2018-10-07 11:42] LABS: ANISOCYTOSIS 1+; MACROCYTOSIS 0; PLATELET ESTIMATE NORMAL
[2018-10-07] MEDS: POLYETHYLENE GLYCOL 3350 119 GM BTL PO SCH (11:47)
[2018-10-07] MEDS ORDERED: POTASSIUM CHLORIDE TABS 20 MEQ TABLET.ER (FP) PO ONE (12:21)
--- NOTE | 2018-10-07 12:26 | PN ---
Teaching Attending Note Name of Resident: Marycruz Ayon ATTENDING PHYSICIAN STATEMENT I saw and evaluated the patient. I reviewed the resident's note and discussed the case with the resident. I agree with the resident's findings and plan as documented with exceptions below. SUBJECTIVE: Patient seen and examined. Right leg symptoms improved, no longer foul smell. No new fevers/chills. OBJECTIVE: Vital Signs Period Temp Pulse Resp BP Sys/Toro Pulse Ox Last 24 Hr 98.5 F-99.1 F 65-77 17-20 132-149/69-74 95 Intake & Output 10/04/18 10/05/18 10/06/18 10/07/18 23:59 23:59 23:59 23:59 Intake Total 664 082 7406 50 Balance 279 966 0622 50 Weight 170 lb 4 oz 172 lb 2 oz 171 lb 5 oz General: sitting in bed in no acute distress Chest: No rales or wheezing Extremities: RLE - no ongoing discharge right lateral knee,resolved erythema/ swelling, extensive denuded skin RLE overall unchanged, no active discharge from the ulcers, markedly improved RLE Home Medications Medication Instructions Recorded Zolpidem Tartrate [Ambien] 5 mg PO HS 05/25/17 Sennosides/Docusate Sodium 1 tablet PO BID #30 tablet 05/27/17 [Pericolace -] Levothyroxine Sodium [Synthroid] 100 mcg PO DAILY 06/13/17 Pantoprazole Sodium [Protonix -] 40 mg PO DAILY 06/13/17 Tramadol HCl 50 mg PO DAILY 05/21/18 Warfarin Sodium 4 tab PO ASDIR 05/21/18 Docusate Sodium [Colace -] 100 mg PO TID #60 capsule 05/23/18 Metoprolol Succinate [Toprol Xl] 25 mg PO DAILY 10/01/18 Polyethylene Glycol 3350 [Miralax 17 gm PO DAILY 10/01/18 (For Daily Use) -] Active Medications Acetaminophen (Tylenol -) 650 mg PO Q6H PRN PRN Reason: PAIN LEVEL 1-5 Last Admin: 10/07/18 02:05 Dose: 650 mg Docusate Sodium (Colace -) 100 mg PO TID EUGENE Last Admin: 10/07/18 06:13 Dose: 100 mg Piperacillin Sod/Tazobactam (Sod 3.375 gm/ Dextrose) 50 mls @ 100 mls/hr IVPB Q8H-IV [facility]; Protocol Last Admin: 10/07/18 09:51 Dose: 100 mls/hr Vancomycin HCl (Vancomycin (Pre-Docked)) 1,000 mg in 250 mls @ 200 mls/hr IVPB Q24H [facility]; Protocol Last Admin: 10/07/18 09:51 Dose: 200 mls/hr Lactobacillus Acidophilus (Bacid -) 1 tab PO DAILY [facility] Last Admin: 10/07/18 09:54 Dose: 1 tab Levothyroxine Sodium (Synthroid -) 100 mcg PO DAILY@0700 [facility] Last Admin: 10/07/18 06:14 Dose: 100 mcg Metoprolol Succinate (Toprol Xl -) 25 mg PO DAILY [facility] Last Admin: 10/07/18 09:52 Dose: 25 mg Pantoprazole Sodium (Protonix -) 40 mg PO DAILY [facility] Last Admin: 10/07/18 09:51 Dose: 40 mg Polyethylene Glycol (Miralax (For Daily Use) -) 17 gm PO DAILY [facility] Last Admin: 10/07/18 11:47 Dose: Not Given Senna/Docusate Sodium (Pericolace -) 1 tablet PO BID [facility] Last Admin: 10/07/18 09:51 Dose: 1 tablet Tramadol HCl (Ultram -) 50 mg PO Q8H PRN PRN Reason: PAIN LEVEL 6-10 Last Admin: 10/07/18 09:52 Dose: 50 mg Warfarin Sodium (Coumadin -) 2 mg PO DAILY@1800 [facility] Last Admin: 10/06/18 17:32 Dose: 2 mg Zolpidem Tartrate (Ambien -) 5 mg PO HS PRN PRN Reason: INSOMNIA Last Admin: 10/06/18 22:05 Dose: 5 mg Laboratory Results - last 24 hr 10/07/18 10/07/18 06:30 06:30 WBC 8.5 RBC 3.22 L Hgb 8.3 L Hct 25.8 L MCV 80.0 MCH 25.9 MCHC 32.4 RDW 17.1 H Plt Count 277 MPV 6.7 L Absolute Neuts (auto) 6.9 Neutrophils % 81.0 Neutrophils % (Manual) 87.0 H Band Neutrophils % 0.0 Lymphocytes % 12.0 D Lymphocytes % (Manual) 6.0 L D Monocytes % 5.3 Monocytes % (Manual) 5 Eosinophils % 0.9 Eosinophils % (Manual) 0.0 Basophils % 0.8 Basophils % (Manual) 0.0 Myelocytes % (Man) 0 Promyelocytes % (Man) 0 Blast Cells % (Manual) 0 Nucleated RBC % 0 Metamyelocytes 0 Hypochromia 0 Platelet Estimate Normal Polychromasia 0 Poikilocytosis 0 Anisocytosis 1+ Microcytosis 1+ Macrocytosis 0 Sodium 139 Potassium 3.3 L Chloride 105 Carbon Dioxide 25 Anion Gap 9 BUN 14 Creatinine 1.2 Creat Clearance w eGFR 42.50 Random Glucose 87 Calcium 7.9 L Total Bilirubin 0.4 AST 9 L ALT 8 L Alkaline Phosphatase 79 Total Protein 4.8 L Albumin 1.7 L Microbiology 10/01/18 16:50 Blood - Peripheral Venous Blood Culture - Final NO GROWTH AFTER 5 DAYS INCUBATION 10/01/18 16:50 Blood - Peripheral Venous Blood Culture - Final NO GROWTH AFTER 5 DAYS INCUBATION 10/03/18 03:08 Urine - Urine Clean Catch Urine Culture - Final Acinetobacter Baumannii/Haemol 10/01/18 19:30 Leg - Right Lower Gram Stain - Final 10/01/18 19:30 Leg - Right Lower Wound Culture - Final Mr S Aureus Pseudomonas Aeruginosa Alpha Hemolytic Streptococcus 10/02/18 12:00 Rectal Swab MRSA Screen - Final Mr S Aureus 10/02/18 12:00 Nares - Mrsa Screen - Right MRSA Screen - Final NO MRSA ISOLATED 10/02/18 12:00 Nares - Mrsa Screen - Left MRSA Screen - Final NO MRSA ISOLATED ASSESSMENT AND PLAN: 87 yof with extensive PMHX as above admitted with RLE cellulitis+/- acute on chronic osteomyelitis -RLE cellulitis with draining wounds , chronic sinus tract, suspected acute on chronic osteomelitis -Right hip/knee/tibia/fibula hardware with extensive orthopedic surgeries -Afib on coumadin -Coumadin coagulopathy, likely from antibiotics -Hypokalemia -Hypoalbuminemia -CAD/angina pectoris -HTN -HLD -CKD stage II -GERD -H/o MRSA bacteremia Plan: Zosyn/vanco day 6, ID input noted, Wound cx noted. No further fevers, Vanco levels noted Discussed with Dr. Cummins, plan to transition to minocycline rn long term care for suppression, with outpatient wound care follow up. Wound care/Orthopedic input appreciated. Clinical exam improved. ESR/CRP noted MRI in 05/2018, that was limited study, monitor clinical response on abx before additional imaging. Follow up xrays. Orthopedic input. INR therapeutic, resumed coumadin at 2 mg now. INR in AM. Cr around baseline, encourage oral intake. Continue metoprolol. DVTPPX On AC. Code status; full, wants her son Eric her HCP Dispo Discussed with CM, patient has day care,s on stays at night, and has home VNS, plan for dc today on PO minocycline if disposition arrangements made.
--- NOTE | 2018-10-07 13:03 | PN ---
Progress Note, Physician History of Present Illness: REPORTS LESS R LE PAIN WITH MANIPULATION AFEBRILE LESS SINUS TRACT DRAINAGE WBC WNL - Current Medication List Current Medications: Active Medications Acetaminophen (Tylenol -) 650 mg PO Q6H PRN PRN Reason: PAIN LEVEL 1-5 Last Admin: 10/07/18 02:05 Dose: 650 mg Docusate Sodium (Colace -) 100 mg PO TID [facility] Last Admin: 10/07/18 06:13 Dose: 100 mg Piperacillin Sod/Tazobactam (Sod 3.375 gm/ Dextrose) 50 mls @ 100 mls/hr IVPB Q8H-IV [facility]; Protocol Last Admin: 10/07/18 09:51 Dose: 100 mls/hr Vancomycin HCl (Vancomycin (Pre-Docked)) 1,000 mg in 250 mls @ 200 mls/hr IVPB Q24H [facility]; Protocol Last Admin: 10/07/18 09:51 Dose: 200 mls/hr Lactobacillus Acidophilus (Bacid -) 1 tab PO DAILY [facility] Last Admin: 10/07/18 09:54 Dose: 1 tab Levothyroxine Sodium (Synthroid -) 100 mcg PO DAILY@0700 [facility] Last Admin: 10/07/18 06:14 Dose: 100 mcg Metoprolol Succinate (Toprol Xl -) 25 mg PO DAILY [facility] Last Admin: 10/07/18 09:52 Dose: 25 mg Pantoprazole Sodium (Protonix -) 40 mg PO DAILY [facility] Last Admin: 10/07/18 09:51 Dose: 40 mg Polyethylene Glycol (Miralax (For Daily Use) -) 17 gm PO DAILY [facility] Last Admin: 10/07/18 11:47 Dose: Not Given Senna/Docusate Sodium (Pericolace -) 1 tablet PO BID [facility] Last Admin: 10/07/18 09:51 Dose: 1 tablet Tramadol HCl (Ultram -) 50 mg PO Q8H PRN PRN Reason: PAIN LEVEL 6-10 Last Admin: 10/07/18 09:52 Dose: 50 mg Warfarin Sodium (Coumadin -) 3 mg PO DAILY@1800 [facility] Zolpidem Tartrate (Ambien -) 5 mg PO HS PRN PRN Reason: INSOMNIA Last Admin: 10/06/18 22:05 Dose: 5 mg - Objective Vital Signs: Vital Signs Temperature 99.1 F 10/07/18 06:00 Pulse Rate 65 01/22/19 06:00 Respiratory Rate 20 10/07/18 06:00 Blood Pressure 149/74 10/07/18 06:00 O2 Sat by Pulse Oximetry (%) 95 10/06/18 21:00 Constitutional: Yes: No Distress Cardiovascular: Yes: Regular Rate and Rhythm, S1, S2 Respiratory: Yes: CTA Bilaterally Gastrointestinal: Yes: Normal Bowel Sounds, Soft. No: Tenderness Extremities: Yes: Other (ERYTEHMA R LE RESOLVED + MACERATED SKIN LATERAL R LEG NO SINUS DRAINAGE) Labs: CBC, BMP 10/07/18 06:30 10/07/18 06:30 INR, PTT INR 2.34 (0.83-1.09) H 10/06/18 07:00 Assessment/Plan CELLULITIS R LE CHRONICALLY INFECTED R LE HARDWARE WOUND C/S POLYMICROBIAL INCLUDING MRSA/ PSEUDOMONAS DISCONTINUE VANCOMYCIN/ ZOSYN SUBSTITUTE MINOCYCLINE 100MG PO BID [facility] SUPPRESSION LOCAL WOUND CARE F/U [facility]
[2018-10-07 13:30] VITALS: BP 125/55; PULSE 56; TEMP 98.7
--- NOTE | 2018-10-07 16:54 | DS ---
Physical Exam: SUBJECTIVE: Patient seen and examined by me at bedside No acute events overnight Offers no complaints Otherwise, denies any fever, chills, nausea, vomiting, abdominal pain, chest pain, palpitations, shortness of breath, urinary or bowel symptoms, diarrhea, constipation OBJECTIVE: Vital Signs Period Temp Pulse Resp BP Sys/Toro Pulse Ox Last 24 Hr 98.5 F-99.1 F 56-77 17-20 125-149/55-74 95-95 PHYSICAL EXAM GENERAL: Awake, alert, in no acute distress. EYES: Sclera anicteric, conjunctiva clear. No lid lag. ENT: Oropharynx clear without exudates. Moist mucous membranes. LUNGS: Breath sounds equal, clear to auscultation bilaterally. No wheezes, and no crackles. No accessory muscle use. HEART: S1S2 irregularly irregular ABDOMEN: Soft, nontender, not distended, normoactive bowel sounds. LOWER EXTREMITIES: RLE (+) multiple excoriating wound ulcers with extensive erythema and scaly skin over the lateral aspect of the leg exteding to the knees. No discharge but some foul smelling. (+) Swelling, faint DP/PT pulses LLE: 2+ DP/PT pulses NEUROLOGICAL: No focal deficits LABS Laboratory Results - last 24 hr 10/07/18 10/07/18 06:30 06:30 WBC 8.5 RBC 3.22 L Hgb 8.3 L Hct 25.8 L MCV 80.0 MCH 25.9 MCHC 32.4 RDW 17.1 H Plt Count 277 MPV 6.7 L Absolute Neuts (auto) 6.9 Neutrophils % 81.0 Neutrophils % (Manual) 87.0 H Band Neutrophils % 0.0 Lymphocytes % 12.0 D Lymphocytes % (Manual) 6.0 L D Monocytes % 5.3 Monocytes % (Manual) 5 Eosinophils % 0.9 Eosinophils % (Manual) 0.0 Basophils % 0.8 Basophils % (Manual) 0.0 Myelocytes % (Man) 0 Promyelocytes % (Man) 0 Blast Cells % (Manual) 0 Nucleated RBC % 0 Metamyelocytes 0 Hypochromia 0 Platelet Estimate Normal Polychromasia 0 Poikilocytosis 0 Anisocytosis 1+ Microcytosis 1+ Macrocytosis 0 Sodium 139 Potassium 3.3 L Chloride 105 Carbon Dioxide 25 Anion Gap 9 BUN 14 Creatinine 1.2 Creat Clearance w eGFR 42.50 Random Glucose 87 Calcium 7.9 L Total Bilirubin 0.4 AST 9 L ALT 8 L Alkaline Phosphatase 79 Total Protein 4.8 L Albumin 1.7 L Microbiology 10/01/18 16:50 Blood - Peripheral Venous Blood Culture - Final NO GROWTH AFTER 5 DAYS INCUBATION 10/01/18 16:50 Blood - Peripheral Venous Blood Culture - Final NO GROWTH AFTER 5 DAYS INCUBATION 10/03/18 03:08 Urine - Urine Clean Catch Urine Culture - Final Acinetobacter Baumannii/Haemol 10/01/18 19:30 Leg - Right Lower Gram Stain - Final 10/01/18 19:30 Leg - Right Lower Wound Culture - Final S Aureus Pseudomonas Aeruginosa Alpha Hemolytic Streptococcus 10/02/18 12:00 Rectal Swab MRSA Screen - Final Mr S Aureus 10/02/18 12:00 Nares - Mrsa Screen - Right MRSA Screen - Final NO MRSA ISOLATED 10/02/18 12:00 Nares - Mrsa Screen - Left MRSA Screen - Final NO MRSA ISOLATED PRE HOSPITAL COURSE: Patient is an 87 year old female with a PMHx of AFib (on Coumadin), HTN, diastolic dysfunction, hypothyroidism, CKD, GERD was sent by Dr. Lacey at the wound care clinic for further evaluation of a chronic draining RLE wound s/p Right hip ORIF (08/2013), Right hip removal of hardware- (05/2016), Right hip replacement/repair @[facility]- (07/2016), Right tibia fx repair @ [facility]- (05/2017) with failed outpatient antibiotic treatment with Chronic Bactrim and recent antibiotic treatment with Augmentin x1 weeks. Patient was found to have leukocytosis with low grade fever and Supratherapeutic INR. Patient admitted for further monitoring and management. HOSPITAL COURSE: Throughout hospitalization, patient was placed on IV antibiotics with Zosyn/ Vancomycin for 6 days. Patient had fevers but resolved with no fevers since . Warfarin was initially discontinued then adjusted and patient's INR normalized. ID evaluated patient and transitioned patient to Minocycline for adjunct faculty for medical terminology suppression. Patient is to follow up at wound care center with close lab value monitoring. Ortho evaluated patient and reported nothing to do on their end. Arrangements were done for VNS services and patient medically cleared for discharge Date of Admission:10/01/18 Date of Discharge: 10/07/18 Minutes to complete discharge: 45 Discharge Summary Reason For Visit: CELLULITIS Current Active Problems Wound infection (Acute) Cellulitis (Chronic) Condition: Stable - Instructions Diet, Activity, Other Instructions: -You were sent here by your wound care doctor for a chronic and infected right leg wound despite taking chronic antibiotics. -You were seen here by specialist and treated you with a course of IV antibiotics. You antibiotic Bactrim has been discontinued and you will now be taking another antibiotic called Minocycline. -You were also found to have an abnormally elevated INR level which is a level used to measure Warfarin in your system. Because it was elevated, your Coumadin dosage has been adjusted. MEDICATIONS: New medications: Minocycline 100 mg twice daily. You will need to be on this medication lifelong. You are provided with 3 weeks prescription and please talk with your doctor for additional script. Avoid prolonged sun exposure, tanning or taking medication with milk. Stop your bactrim Your INR level was high Take coumadin 3 mg daily for next 2 days, have INR checked with your doctor on and further dosing will be instructed by your doctor. Continue rest of your medications as before. FOLLOW UP: -You will need to follow up with WOUND CARE for management of your chronic cellulitis. You will also need repeat labs from the wound care. Please return to the Wound care in 1 week -You will need to follow up with the orthopedic for further management of infected hardware -You will also need to follow up with your primary care physician, Dr. Ceron within 1-2 weeks DRESSING INSTRUCTIONS: -Bacitracin and xeroform over desquamated area with dry dressing over sinus tract. Compressive wrap with jacki and elevate leg. Will need to off load pressure areas and bilateral heel pads. Positioning Q2H -If you notice any new fevers, chills, foot swelling, redness, pain, or any new concerns, please call 911 or come to ED. Referrals: Mukul Gutierrez MD [Staff Physician] - Jason Lacey MD [Staff Physician] - Khalif Ceron MD [Staff Physician] - Disposition: VNS/HOME HEALTH CARE - Home Medications Comprehensive Discharge Medication List: Ambulatory Orders Zolpidem Tartrate [Ambien] 5 mg PO HS 05/25/17 Sennosides/Docusate Sodium [Pericolace -] 1 tablet PO BID #30 tablet 05/27/17 Levothyroxine Sodium [Synthroid] 100 mcg PO DAILY 06/13/17 Pantoprazole Sodium [Protonix -] 40 mg PO DAILY 06/13/17 Tramadol HCl 50 mg PO DAILY 05/21/18 Docusate Sodium [Colace -] 100 mg PO TID #60 capsule 05/23/18 Metoprolol Succinate [Toprol Xl] 25 mg PO DAILY 10/01/18 Polyethylene Glycol 3350 [Miralax 119 gm Btl -] 17 gm PO DAILY 10/01/18 Minocycline HCl 100 mg PO BID #42 tablet 10/07/18 Warfarin Sodium 3 mg PO DAILY #5 tablet 10/07/18 This patient is new to me today: No Emergency Visit: Yes ED Registration Date: 10/01/18 Care time: The patient presented to the Emergency Department on the above date and was hospitalized for further evaluation of their emergent condition. Critical Care patient: No - Discharge Referral Referred to [facility] Med P.C.: No
[2018-10-07] MEDS ORDERED: WARFARIN NA 3 MG TABLET PO SCH (18:00)
== END 2018-10-07 19:34 | disposition home health service (06) | DRG 949 ==
LOC: JER 13:43 → JERBED 16:56 → J6S 10-02 01:11
PROVIDERS: ADMIT Internal Medicine; ATTEND Hospitalist
DX: T84.6 Infection and inflammatory reaction due to internal fixation device (principal); L03.115 Cellulitis of right lower limb; L97.919 Non-pressure chronic ulcer of unspecified part of right lower leg with unspecified severity; Y83.9 Surgical procedure, unspecified as the cause of abnormal reaction of the patient, or of later complication, without mention of misadventure at the time of the procedure; N18.2 Chronic kidney disease, stage 2 (mild); I87.2 Venous insufficiency (chronic) (peripheral); A49.02 Methicillin resistant Staphylococcus aureus infection, unspecified site; E03.9 Hypothyroidism, unspecified; I12.9 Hypertensive chronic kidney disease with stage 1 through stage 4 chronic kidney disease, or unspecified chronic kidney disease; K21.9 Gastro-esophageal reflux disease without esophagitis; R79.1 Abnormal coagulation profile; I48.91 Unspecified atrial fibrillation; K59.00 Constipation, unspecified; I25.119 Atherosclerotic heart disease of native coronary artery with unspecified angina pectoris; E78.5 Hyperlipidemia, unspecified; D72.829 Elevated white blood cell count, unspecified; E87.6 Hypokalemia; E88.09 Other disorders of plasma-protein metabolism, not elsewhere classified
CPT/HCPCS: 36415; 73560-TC-RT-FY; 73590-TC-RT-FY; 73610-TC-RT-FY; 73630-TC-RT-FY; 80048; 80053; 81003; 81015; 83605; 83735; 84100; 85025; 85027; 85610; 85651; 85730; 86140; 86850; 86900; 86901; 87040; 87070; 87081; 87086; 87186; 87205; 93005; 93010; 93971-TC; 97161-GP; 99284-25; G0463-25; G0480

== ENCOUNTER 2018-10-16 15:56 | Inpatient (IN) | payer OTHER ==
--- NOTE | 2018-10-16 16:30 | PDOC ---
Attending Attestation - Medical Decision Making 10/16/18 21:37 Study: Abdomen and Pelvis CT Reported by: Dr. Ryan Impression: Mild scarring at the lung bases. Coronary artery and mitral annular calcifications. Punctate calcification in the spleen compatible with a granuloma. The kidneys appear atrophic. The unenhanced upper abdominal visceral organ are otherwise normal. There is an infrarenal abdominal aortic aneurysm measuring 5 x 4.3 cm in transverse and AP dimension and 4.4 cm in craniocaudal dimension. No evidence of acute hemorrhage. There is no bowel distension. Moderate to large amount of retained stool in the colon. Normal appendix. Left inguinal hernia containing a loop of sigmoid colon and trace fluid without evidence of obstruction. A right inguinal hernia contains fat and appears uncomplicated. No intra-abdominal free air or free fluid. Total right hip prosthesis with wide area of lucency about the femoral component and cortical thinning of the visuallized proximal femur compatible with loosening, likely chronic. 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 Pt c/o abd cramping and chronic RLE leg pain. Pt with chronic wounds to RLE and is on minocycline BID for lifelong suppression. Pt denies f/c. NO cp/sob. NO dysuria. No n/v. Last bm 3 days ago. NO blood. No cough. Pt with serous drainage from RLE chronic wounds. - Physicial Exam PE: 10/16/18 16:49 Gen: awake, alert, at baseline ms heart: +s1s2 reg lungs: cta b/l abd: soft, nt/nd +bs, no rebound or guarding ext: chronic wounds to R calf with serous drainage and skin breakdown. b/l groin with redness and excoriated skin to groin, limited ROM RLE neuro: no focal findings - Medical Decision Making 10/16/18 16:29 I, Dr. Gloria Kennedy, DO, attest that this document has been prepared under my direction and personally reviewed by me in its entirety. I further attest, that it accurately reflects all work, treatment, procedures and medical decision -making performed by me. 10/16/18 16:52 a/p: 88yo female with chronic RLE wound on chronic abx with decreased po intake , decreased BM, and abd cramping -will send labs, ekg, cxr, abd xray, cultures, ua -will see abd xray for poss constipation -will give gentle hydration -will straight cath -vss -nontoxic in appearance -abd is soft and nontender, non distended 10/16/18 22:24 L inguinal hernia- not able to be reduced no obstruction stool in colon case discussed with Dr. Melendrez - npo except meds, hold coumadin will see pt in am ua negative for acute uti microblog sent to [facility] for admission 10/16/18 23:22 case discussed with [facility] who accepts pt to service <Gloria Kennedy - Last Filed: 10/16/18 23:23> *DC/Admit/Observation/Transfer - Discharge Dispostion Decision to Admit order: Yes <Gloria Kennedy - Last Filed: 10/16/18 23:23> Diagnosis at time of Disposition: Abdominal aortic aneurysm, Abdominal pain, Irreducible left inguinal hernia - Discharge Dispostion Condition at time of disposition: Guarded - Referrals Referrals: Khalif Ceron MD [Primary Care Provider] - - Patient Instructions - Post Discharge Activity Heart Score/ECG Review - ECG Intrepretation Comment:: 10/16/18 20:46 afib at 75, baseline artifact, nl axis, q waves septally that are age indeterminate, no acute st/t wave findings <Gloria Kennedy - Last Filed: 10/16/18 23:23>
[2018-10-16] MEDS ORDERED: SODIUM CHLORIDE IV ONE (16:34)
--- NOTE | 2018-10-16 16:34 | PDOC ---
History of Present Illness - General Stated Complaint: Wound Time Seen by Provider: 10/16/18 16:09 History Source: Patient, EMS Exam Limitations: No Limitations - History of Present Illness Initial Comments: 10/16/18 16:24 88YOF with h/o recent [facility] admission for febrile cellulitis (10/01/18-10/07/18, was on vanc/Zosyn for 6 days, transitioned to minocycline per ID for long-term suppression of RLE hardware infection, deemed by Ortho to be best for medical management). She additionally has h/o AFib (on Coumadin), HTN, diastolic dysfunction, hypothyroidism, CKD, GERD was sent by Dr. Lacey at the wound care clinic for further evaluation of a chronic draining RLE wound s/p Right hip ORIF (08/2013), Right hip removal of hardware- (05/2016), Right hip replacement/ repair @[facility]- (07/2016), Right tibia fx repair @ [facility]- (05/2017) with failed outpatient antibiotic treatment with Chronic Bactrim and recent antibiotic treatment with Augmentin x1 weeks. She returns today for failure to thrive, no PO intake x3 days, no BM in 3 days, abdominal cramping, still passing gas, continued pain and swelling to her RLE. She also notes trouble with her visiting nurses in that she is supposed to have 3 visits/week and has only had 2 this week. She is unable to care for herself. She denies f/c/n/v/d, CP, SOB, or other symptoms. Discharge meds 10/07/18 Zolpidem Tartrate [Ambien] 5 mg PO HS 05/25/17 Sennosides/Docusate Sodium [Pericolace -] 1 tablet PO BID #30 tablet 05/27/17 Levothyroxine Sodium [Synthroid] 100 mcg PO DAILY 06/13/17 Pantoprazole Sodium [Protonix -] 40 mg PO DAILY 06/13/17 Tramadol HCl 50 mg PO DAILY 05/21/18 Docusate Sodium [Colace -] 100 mg PO TID #60 capsule 05/23/18 Metoprolol Succinate [Toprol Xl] 25 mg PO DAILY 10/01/18 Polyethylene Glycol 3350 [Miralax 119 gm Btl -] 17 gm PO DAILY 10/01/18 Minocycline HCl 100 mg PO BID #42 tablet 10/07/18 Warfarin Sodium 3 mg PO DAILY #5 tablet 10/07/18 Past History - Past Medical History Allergies/Adverse Reactions: Allergies Allergy/AdvReac Type Severity Reaction Status Date / Time latex Allergy Intermediate Itching Verified 05/25/17 16:48 AND RASH Home Medications: Ambulatory Orders Zolpidem Tartrate [Ambien] 5 mg PO HS 05/25/17 Sennosides/Docusate Sodium [Pericolace -] 1 tablet PO BID #30 tablet 05/27/17 Levothyroxine Sodium [Synthroid] 100 mcg PO DAILY 06/13/17 Pantoprazole Sodium [Protonix -] 40 mg PO DAILY 06/13/17 Tramadol HCl 50 mg PO DAILY 05/21/18 Docusate Sodium [Colace -] 100 mg PO TID #60 capsule 05/23/18 Metoprolol Succinate [Toprol Xl] 25 mg PO DAILY 10/01/18 Polyethylene Glycol 3350 [Miralax 119 gm Btl -] 17 gm PO DAILY 10/01/18 Minocycline HCl 100 mg PO BID #42 tablet 10/07/18 Warfarin Sodium 3 mg PO DAILY #5 tablet 10/07/18 Anemia: No Asthma: No Cancer: No Cardiac Disorders: Yes (ATRIAL FIBRILLATION) CVA: No COPD: No CHF: No Dementia: (FORGETFUL AT TIMES,) Diabetes: No GI Disorders: No Disorders: No HTN: Yes Hypercholesterolemia: No Liver Disease: No Seizures: No Thyroid Disease: Yes (Hypothyroid) - Surgical History Abdominal Surgery: No Appendectomy: No Cardiac Surgery: No Cholecystectomy: No Lung Surgery: No Neurologic Surgery: No Orthopedic Surgery: Yes (Rt.TKR; Rt.Femur surg.w/prosthetic) - Immunization History Td Vaccination: (UNKNOWN) Immunization Up to Date: No - Suicide/Smoking/Psychosocial Hx Smoking Status: Yes Smoking History: Current some day smoker Years of Tobacco Use: 30 Have you smoked in the past 12 months: No Number of Cigarettes Smoked Daily: 1 'Breaking Loose' booklet given: 08/15/15 Hx Alcohol Use: No Drug/Substance Use Hx: No Substance Use Type: None Hx Substance Use Treatment: No Review of Systems - Review of Systems Able to Perform ROS?: Yes Comments:: GEN: generalized weakness, no fever or chills HEENT: no ear pain, sore throat, vision change, or eye pain CV: no chest pain, palpitations, lightheadedness, syncope, or edema RESP: no cough, wheezing, or SOB GI: abdominal cramping, loss of appetite, constipation, no nausea, vomiting, diarrhea, or white/black/bloody stool : no dysuria, hematuria, incontinence, retention, bleeding, or discharge MSK: right shoulder pain, right thigh pain, otherwise no neck/back pain, muscle weakness/pain, or joint swelling/pain NEURO: no headache, seizure, vertigo, numbness, tingling, or focal weakness PSYCH: no substance use, no behavior change SKIN: no jaundice, no rash ROS otherwise negative except as noted in HPI *Physical Exam - Vital Signs Initial Vital Signs Temp Pulse Resp BP Pulse Ox 97.6 F 71 18 126/74 99 10/16/18 16:17 10/16/18 16:17 10/16/18 16:17 10/16/18 16:17 10/16/18 16:17 - Physical Exam Comments: GENERAL: very pleasant and talkative, nontoxic and well-appearing, A/Ox4, no distress unless being actively repositioned and during repositioning becomes mildly distressed, answers questions appropriately HEENT: PERRLA, EOMI, moist mucous membranes NECK/BACK: no midline ttp, no spinal stepoff or deformity, no hematoma, full ROM , neck supple CARDIOVASCULAR: regular rate/rhythm, normal S1S2, no MGR, strong peripheral pulses, capillary refill <2 seconds, extremities wwp, no edema LUNGS/RESPIRATORY: no respiratory distress, CTAB GI/ABDOMEN: symmetric [id number], normoactive BS, soft, no ttp, no midline pulsatile masses : no CVA tenderness EXTREMITIES: BLE severe knee osteoarthritic deformities, BLE chronic muscle atrophy, no acute deformity, see skin exam SKIN: RLE diffuse skin breakdown, erythema, and non-purulent drainage from [address] the lower leg to the sole of the foot, nonmalodorous, mild ttp, + pedal edema, patient states this is unchanged from baseline, also inguinal and groin erythema with barrier cream applied, warm and dry, no pallor, no jaundice, no bruising NEUROLOGICAL: GCS 15, CN II-XII grossly intact, 5/5 strength proximally and distally, no facial droop ED Treatment Course - LABORATORY CBC & Chemistry Diagram: 10/16/18 17:55 10/16/18 17:55 Medical Decision Making - Medical Decision Making Pt presents with home health aid-reported fever at home, worsened RLE wounds. However she is afebrile here, normal vitals, denies change in her RLE from chronic baseline. However she notes no appetite, no PO intake x3 days, constipation x3 days, mild abdominal discomfort. Initial Vital Signs Temp Pulse Resp BP Pulse Ox 97.6 F 71 18 126/74 99 10/16/18 16:17 10/16/18 16:17 10/16/18 16:17 10/16/18 16:17 10/16/18 16:17 Exam: As noted in Physical Exam section. DDX IBNLT: SBO, constipation, gas, ascites, GI perforation, abdominal compartment syndrome, colitis or diverticulitis wwo rupture or abscess, toxic megacolon, appendicitis wwo rupture, pancreatitis wwo abscess/pseudocyst (MC cause gallstones and EtOH; also hypercalcemia, neoplasm, medications, ERCP complication, abdominal surgery/instrumentation, trauma, SBP (rl. w/ h/o cirrhosis/EtOH), AAA/AD wwo rupture, ischemic colitis wwo perforation (embolism , bowel obstruction, inadequate systemic perfusion, medications, surgery- induced vascular compromise), etc. W/U ordered: Labs as noted below, EKG CXR Abdominal XR flat/upright TX ordered: Ofirmev, IVF EKG: Reviewed; see HEART Score/ECG section. CXR: 10/16/18 19:07 Constipation and possible dilated bowel loop in RUQ; patient states feels like she needs to defacate but cannot. Ordering abdomen/pelvis CT to r/o bowel obstruction. Labs: Reassessment: Repeat VS: ADMIT The Pts symptoms persist despite ED treatments. The Pt is unsafe for discharge at this time. They require further hospital observation, workup, and treatment. Microblog sent to [facility] for admission. Blank Decision to Admit order is placed per ED protocol. Spoke with admitting team customer sales representative, in agreement Pt to be admitted. Decision to Admit order corrected with admitting team covering attendings name. DISCHARGE This patient has gotten significant relief of symptoms while in the ED. On last reassessment, vitals are wnl, pain is reasonably controlled, and exam is benign. Workup is not concerning for emergency-level pathology at this time. This patient is appropriate for discharge with close outpatient follow up. The Pt is comfortable with this plan and will follow up with their primary care provider in 1-3 days. She will take Motrin and/or Tylenol for pain. Specific return precautions are discussed and they will come back to the ER if necessary. *DC/Admit/Observation/Transfer - Referrals Referrals: Khalif Ceron MD [Primary Care Provider] - - Patient Instructions - Post Discharge Activity
[2018-10-16] MEDS ORDERED: SODIUM CHLORIDE 0.9% 1000 ML INFUS.BAG IV ONE (17:03)
[2018-10-16] MEDS ORDERED: ACETAMINOPHEN 1000 MG/100 ML VIAL (NON FORMULARY) IVPB ONE (17:07)
[2018-10-16] MEDS ORDERED: ACETAMINOPHEN INJECTION 100 ML IVPB ONE (17:33)
[2018-10-16 18:25] LABS: BASO % 0.4 % (0-2.0); EOS % 0.5 % (0-4.5); HEMATOCRIT 33.8 % (32.4-45.2); LYMPH % 11.6 % (8-40); MCH 26.5 pg (25.7-33.7); MCHC 32.6 g/dl (32.0-36.0); MEAN CELL VOLUME 81.2 fl (80-96); MEAN PLT VOLUME 7.3 fl (7.5-11.1); MONO % 4.7 % (3.8-10.2); NEUT % 82.8 % (42.8-82.8); PLATELET COUNT 265 K/MM3 (134-434); RBC 4.16 M/mm3 (3.60-5.2); WHITE BLOOD COUNT 11.9 K/mm3 (4.0-10.0)
[2018-10-16 18:51] LABS: INR 2.03 (0.83-1.09); PROTHROMBIN TIME (PATIENT) 24.1 SEC (9.7-13.0)
[2018-10-16 19:04] LABS: ALBUMIN 2.4 g/dl (3.4-5.0); ALK PHOS 141 U/L (45-117); ANION GAP 8 MMOL/L (8-16); BILIRUBIN,TOTAL 0.6 mg/dL (0.2-1); BLOOD UREA NITROGEN 23 mg/dL (7-18); CALCIUM 8.4 mg/dL (8.5-10.1); CHLORIDE 104 mmol/L (98-107); CO2 24 mmol/L (21-32); CREATININE 1.2 mg/dL (0.55-1.3); GLUCOSE,RANDOM 89 mg/dL (74-106); SGOT/AST 28 U/L (15-37); SGPT/ALT 13 U/L (13-61); SODIUM 136 mmol/L (136-145); TOT PROT 6.4 g/dl (6.4-8.2)
[2018-10-16 19:35] LABS: POTASSIUM 4.8 mmol/L (3.5-5.1)
[2018-10-16 20:08] LABS: ANISOCYTOSIS 1+; MACROCYTOSIS 1+; PLATELET ESTIMATE ADEQUATE
[2018-10-16] MEDS ORDERED: traMADol HCL 50 MG TABLET PO ONE (21:04)
[2018-10-16] MEDS ORDERED: morphine CARPU-JECT 2 MG/1 ML DISP.SYRIN IVPUSH ONE (21:08)
[2018-10-16] MEDS ORDERED: MORPHINE SULFATE 2 MG/ML VIAL ONE (21:12)
[2018-10-16 22:08] LABS: URINE APPEARANCE SLCLOUDY; URINE BILIRUBIN NEGATIVE (<2.0 mg/dL); URINE COLOR LTYELLOW; URINE GLUCOSE (UA) NEGATIVE (NEGATIVE); URINE KETONE NEGATIVE (NEGATIVE); URINE LEUK ESTERASE 3+ (NEGATIVE); URINE NITRITE NEGATIVE (NEGATIVE); URINE PROTEIN NEGATIVE (NEGATIVE); URINE UROBILINOGEN NEGATIVE mg/dL (0.2-1.0)
[2018-10-16 22:11] LABS: EPI CELLS RARE /HPF (FEW); URINE BACTERIA RARE /hpf (NONE SEEN); URINE MUCUS RARE
[2018-10-16] MEDS ORDERED: BISACODYL 10 MG SUPP.RECT PR ONE (22:22)
[2018-10-17] MEDS ORDERED: GLYCERIN 1 RECTAL SUPPOSITORY, ADULT PR ONE (00:31)
[2018-10-17] MEDS ORDERED: traMADol HCL 50 MG TABLET PO PRN (00:45)
--- NOTE | 2018-10-17 00:45 | HP ---
CHIEF COMPLAINT: constipation x 3 days PCP: Dr. Ceron HISTORY OF PRESENT ILLNESS: 88 y/o F with PMH recent admission febrile cellulitis (10/01-10/07, was on vanc/ zosyn then changed to minocycline. currently on), RLE hardware/infection (R hip ORIF, hardware removal 2015, R hip replacement and repair [facility] 2015, R tib/fib fx repair [facility] 06/02), afib (on coumadin), HTN, diastolic dysfunction (currently not on lasix), hypothyroidism, GERD, hx AAA (5x4x4 cm; followed by surgeon yearly), who presents to the ED after being sent by [facility] for fever and possible RLE hardware infection as she had continued serous drainage of RLE wounds. However, as per pt, she is more concerned that she has had constipation x 3 days , decreased PO intake, and consistent, 7/10 non-radiating pain at the site of a L inguinal hernia. Currently denies FORD, fever, chills, SOB, chest pain or pressure, or changes in urinary function. No urinary frequency, or dysuria. 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 lives at home on own - , has [facility] nurse that takes care of her. uses a wheelchair Smoking: in past 1 pack/week x 50 yrs. currently smokes 1-2 cigarettes/month Alcohol: socially Drugs: denies Family History: mother - HTN, father- HTN Allergies latex Allergy (Intermediate, Verified 05/25/17 16:48) Itching AND RASH ITCHY HOME MEDICATIONS: Home Medications Medication Instructions Recorded Zolpidem Tartrate [Ambien] 5 mg PO HS 05/25/17 Sennosides/Docusate Sodium 1 tablet PO BID #30 tablet 05/27/17 [Pericolace -] Levothyroxine Sodium [Synthroid] 100 mcg PO DAILY 06/13/17 Pantoprazole Sodium [Protonix -] 40 mg PO DAILY 06/13/17 Tramadol HCl 50 mg PO DAILY 05/21/18 Docusate Sodium [Colace -] 100 mg PO TID #60 capsule 05/23/18 Metoprolol Succinate [Toprol Xl] 25 mg PO DAILY 10/01/18 Polyethylene Glycol 3350 [Miralax 17 gm PO DAILY 10/01/18 119 gm Btl -] Minocycline HCl 100 mg PO BID #42 tablet 10/07/18 Warfarin Sodium 3 mg PO DAILY #5 tablet 10/07/18 REVIEW OF SYSTEMS CONSTITUTIONAL: Absent: fever, chills, diaphoresis, generalized weakness, malaise, loss of appetite, weight change HEENT: Absent: rhinorrhea, nasal congestion, throat pain, throat swelling, difficulty swallowing, mouth swelling, ear pain, eye pain, visual changes CARDIOVASCULAR: Absent: chest pain, syncope, palpitations, irregular heart rate, lightheadedness , peripheral edema RESPIRATORY: Absent: cough, shortness of breath, dyspnea with exertion, orthopnea, wheezing, stridor, hemoptysis GASTROINTESTINAL: +abdominal pain, constipation Absent: abdominal pain, abdominal distension, nausea, vomiting, diarrhea, constipation, melena, hematochezia GENITOURINARY: Absent: dysuria, frequency, urgency, hesitancy, hematuria, flank pain, genital pain MUSCULOSKELETAL: Absent: myalgia, arthralgia, joint swelling, back pain, neck pain SKIN: Absent: rash, itching, pallor HEMATOLOGIC/IMMUNOLOGIC: Absent: easy bleeding, easy bruising, lymphadenopathy, frequent infections ENDOCRINE: Absent: unexplained weight gain, unexplained weight loss, heat intolerance, cold intolerance NEUROLOGIC: Absent: headache, focal weakness or paresthesias, dizziness, unsteady gait, seizure, mental status changes, bladder or bowel incontinence PSYCHIATRIC: Absent: anxiety, depression, suicidal or homicidal ideation, hallucinations. PHYSICAL EXAMINATION Vital Signs - 24 hr 10/16/18 10/16/18 16:17 16:46 Temperature 97.6 F 97.6 F Pulse Rate 71 77 Respiratory 18 18 Rate Blood Pressure 126/74 O2 Sat by Pulse 99 99 Oximetry (%) GENERAL: Pleasant. resting in bed. Awake, alert, and fully oriented, in no acute distress. HEAD: Normal with no signs of trauma. EYES: Pupils equal, round and reactive to light, extraocular movements intact, sclera anicteric, conjunctiva clear. EARS, NOSE, THROAT: Ears normal, nares patent, oropharynx clear without exudates. Moist mucous membranes. NECK: Normal range of motion, supple LUNGS: Breath sounds equal, clear to auscultation bilaterally. No wheezes, and no crackles. No accessory muscle use. HEART: +irreg irreg rate. without murmur, rub or gallop. ABDOMEN: +guarding, diffuse TTP in LLQ. w/ nonreducible L inguinal hernia. + erythematous rash - suprapubic region under diaper LOWER EXTREMITIES: 2+ pt pulses, warm, with chronic changes, dry skin. +RLE: everted, with multiple medial and lateral RLE wounds, serous drainage, sloughing of skin. without erythema NEUROLOGICAL: Cranial nerves II-XII intact. able to move UE, LLE without difficulty. limited ROM RLE d/t pain PSYCHIATRIC: Cooperative. Good eye contact. SKIN: Warm, dry Laboratory Results 10/16/18 10/16/18 10/16/18 17:55 17:55 21:54 WBC 11.9 H Hgb 11.0 Hct 33.8 D Plt Count 265 BUN 23 H Creatinine 1.2 Calcium 8.4 L Alkaline Phosphatase 141 H Albumin 2.4 L Ur Specific [place] 1.006 L Ur Leukocyte Esterase 3+ H Urine WBC (Auto) 7 Urine RBC (Auto) 1 EKG: +afib, rate 75bpm, qtc 424ms CTAP: prelim read: Punctate calcification in the spleen compatible with a granuloma. The kidneys appear atrophic. The unenhanced upper abdominal visceral organ are otherwise normal. There is an infrarenal abdominal aortic aneurysm measuring 5 x 4.3 cm in transverse and AP dimension and 4.4 cm in craniocaudal dimension. No evidence of acute hemorrhage. There is no bowel distension. Moderate to large amount of retained stool in the colon. Normal appendix. Left inguinal hernia containing a loop of sigmoid colon and trace fluid without evidence of obstruction. A right inguinal hernia contains fat and appears uncomplicated. No intra-abdominal free air or free fluid. Total right hip prosthesis with wide area of lucency about the femoral component and cortical thinning of the visuallized proximal femur compatible with loosening, likely chronic. ASSESSMENT/PLAN: 88 y/o F with PMH recent admission febrile cellulitis (10/01-10/07, was on vanc/ zosyn then changed to minocycline. currently on), RLE hardware/infection (R hip ORIF, hardware removal 2015, R hip replacement and repair [facility] 2015, R tib/fib fx repair [facility] 9/17), afib (on coumadin), HTN, diastolic dysfunction (currently not on lasix), hypothyroidism, GERD, hx AAA (5x4x4 cm; followed by surgeon yearly), who presents to the ED with constipation x 3 days, as well as LLQ pain. #LLQ pain -likely 2/2 non reproducible L inguinal hernia. less concern for strangulation as pt hemodynamically stable -will be seen by surgery (Dr. Melendrez) in AM . for time being, will keep NPO, hold coumadin in case of procedure -likely worsening constipation, or vice versa. will tx constipation with senna, colace, enema to see if relieves pain #r/o RLE hardware infection -wounds currently do not look infected, erythematous. with serous drainage- chronically -with white count, however afebrile -c/w minocycline, tramadol -f/u ucx, blood cx #afib -currently rate controlled, is on BB - toprol -as per sx recs, will hold coumadin in case of procedure -INR currently therapeutic (~2), continue to follow #HTN -c/w metoprolol #hypothyroid -c/w synthroid #GERD -c/w protonix #F/E/N no indication for IVF at this time continue to follow lytes NPO in case of procedure, sx evaluation in AM #PPX DVT: SCD's, holding a/c as per sx rec #Dispo med-surg Visit type - Emergency Visit Emergency Visit: Yes ED Registration Date: 10/16/18 Care time: The patient presented to the Emergency Department on the above date and was hospitalized for further evaluation of their emergent condition. - New Patient This patient is new to me today: Yes Date on this admission: 10/17/18 - Critical Care Critical Care patient: No
--- NOTE | 2018-10-17 00:54 | PN ---
Teaching Attending Note Name of Resident: Sharron Soares ATTENDING PHYSICIAN STATEMENT I saw and evaluated the patient. I reviewed the resident's note and discussed the case with the resident. I agree with the resident's findings and plan as documented. SUBJECTIVE: Patient is an 88 year old woman who presents today for failure to thrive, no PO intake x3 days, no BM in 3 days, abdominal cramping, still passing gas, continued pain and swelling to her RLE. Has history of recent [facility] admission for febrile cellulitis (10/01/18-10/07/18, was on vanc/Zosyn for 6 days, transitioned to minocycline per ID for long-term suppression of RLE hardware infection, deemed by Ortho to be best for medical management). She additionally has h/o AFib (on Coumadin), HTN, diastolic dysfunction, hypothyroidism, CKD, GERD was sent by Dr. Lacey at the wound care clinic for further evaluation of a chronic draining RLE wound s/p Right hip ORIF (08/2013), Right hip removal of hardware- (05/2016), Right hip replacement/repair @[facility]- (07/2016), Right tibia fx repair @ [facility]- (05/2017) with failed outpatient antibiotic treatment with Chronic Bactrim and recent antibiotic treatment with Augmentin x1 weeks. She also notes trouble with her visiting nurses in that she is supposed to have 3 visits/week and has only had 2 this week. She is unable to care for herself. She denies f/c/n/v/d, CP, SOB, or other symptoms. OBJECTIVE: Alert Vital Signs Period Temp Pulse Resp BP Sys/Toro Pulse Ox Last 24 Hr 97.6 F-97.6 F 71-77 18-18 126/74 99-99 HEENT: No Jaundice, eye redness or discharge, PERRLA, EOMI. Normocephalic, atraumatic. External ears are normal and hearing is grossly intact. No nasal discharge. Neck: Supple, nontender. No palpable adenopathy or thyromegaly. No JVD Chest: Good effort. Clear to auscultation and percussion. Heart: Irregularly irregular. No S3, rub or murmur Abdomen: Not distended, soft, nontender and no HSM. No rebound or guarding. LLQ tenderness; diaper rash. Left non reducible inguinal hernia. Normoactive bowel sounds. Ext: Peripheral pulses intact. Limited ROM of RLE with RLE ulcers and right foot plantar ulcer. Skin: Warm and dry. No petechiae, rash or ecchymosis. Neuro: Alert. Oriented x3. CN 2-12 grossly intact. Sensation grossly intact in all four extremities and DTR are symmetric. Current Medications Generic Name Dose Route Start Last Admin Trade Name Freq PRN Reason Stop Dose Admin Docusate Sodium 100 mg 10/17/18 00:31 Colace - PO DAILY [facility] Levothyroxine Sodium 100 mcg 10/17/18 07:00 Synthroid - PO DAILY@0700 [facility] Metoprolol Succinate 25 mg 10/17/18 10:00 Toprol Xl - PO DAILY [facility] Non-Formulary Medication 100 mg 10/17/18 10:00 Minocycline Hcl [Minocycline Hcl] PO BID [facility] Pantoprazole Sodium 40 mg 10/17/18 10:00 Protonix - PO DAILY [facility] Senna 1 tab 10/17/18 00:31 Senna - PO HS [facility] Tramadol HCl 50 mg 10/17/18 00:45 Ultram - PO PRN [facility] Home Medications Medication Instructions Recorded Zolpidem Tartrate [Ambien] 5 mg PO HS 05/25/17 Sennosides/Docusate Sodium 1 tablet PO BID #30 tablet 05/27/17 [Pericolace -] Levothyroxine Sodium [Synthroid] 100 mcg PO DAILY 06/13/17 Pantoprazole Sodium [Protonix -] 40 mg PO DAILY 06/13/17 Tramadol HCl 50 mg PO DAILY 05/21/18 Docusate Sodium [Colace -] 100 mg PO TID #60 capsule 05/23/18 Metoprolol Succinate [Toprol Xl] 25 mg PO DAILY 10/01/18 Polyethylene Glycol 3350 [Miralax 17 gm PO DAILY 10/01/18 119 gm Btl -] Minocycline HCl 100 mg PO BID #42 tablet 10/07/18 Warfarin Sodium 3 mg PO DAILY #5 tablet 10/07/18 Abnormal Lab Results 10/16/18 10/16/18 10/16/18 17:55 17:55 17:55 WBC 11.9 H RDW 18.0 H MPV 7.3 L Absolute Neuts (auto) 9.8 H Neutrophils % (Manual) 88.0 H Monocytes % (Manual) 2 L PT with INR 24.10 H INR 2.03 H BUN 23 H Calcium 8.4 L Alkaline Phosphatase 141 H Albumin 2.4 L Ur Specific [place] Ur Leukocyte Esterase 10/16/18 21:54 WBC RDW MPV Absolute Neuts (auto) Neutrophils % (Manual) Monocytes % (Manual) PT with INR INR BUN Calcium Alkaline Phosphatase Albumin Ur Specific [place] 1.006 L Ur Leukocyte Esterase 3+ H ASSESSMENT AND PLAN: 1. Failure to thrive/Abdominal cramps/RLE infection - CT abdomen confirms constipation with sigmoid bowel loops within left inguinal hernia but no evidence of obstruction. Coumadin for Afib is hold as per surgeon and will be re -evaluated in the AM. Will treat constipation. On Minocycline for right leg infection. Sepsis workup done - has leukocyte esterase in urine but no urinary symptoms at this time. Will continue Minocycline pending results of sepsis wok up - no indication at this time for escalating antibiotics coverage. Continue daily wound care of RLE ulcers. Consult wound service. Use Desitin powder for diaper rash. Discuss Home care issues with [facility]. 2. Hypoalbuminemia - Possibly due to combined effects of malnutrition and inflammation associated with comorbid chronic conditions. Will ensure adequate dietary protein intake and also consult fast food crew member. 3. DVT prophylaxis - On coumadin (Restart if not going for surgery tomorrow). 4. Advance directives - Full code
[2018-10-17] MEDS: DOCUSATE SODIUM 100 MG CAPSULE (FP) PO SCH ×2 (01:19→10:30)
[2018-10-17] MEDS: SENNOSIDES 8.6MG TABLET (FP) PO SCH ×2 (01:19→22:02)
[2018-10-17] MEDS ORDERED: DOCUSATE SODIUM 100 MG CAPSULE (FP) PO ONE (01:23)
[2018-10-17 06:02] LABS: EOS % 0.2 % (0-4.5); HEMATOCRIT 28.7 % (32.4-45.2); HEMOGLOBIN 9.3 GM/dL (10.7-15.3); LYMPH % 12.4 % (8-40); MCHC 32.5 g/dl (32.0-36.0); MEAN CELL VOLUME 79.9 fl (80-96); MEAN PLT VOLUME 7.1 fl (7.5-11.1); MONO % 3.3 % (3.8-10.2); NEUT % 83.1 % (42.8-82.8); PLATELET COUNT 228 K/MM3 (134-434); RBC 3.59 M/mm3 (3.60-5.2); RDW 17.8 % (11.6-15.6); WHITE BLOOD COUNT 9.2 K/mm3 (4.0-10.0)
[2018-10-17 06:16] LABS: ALBUMIN 1.9 g/dl (3.4-5.0); ALK PHOS 113 U/L (45-117); ANION GAP 7 MMOL/L (8-16); BILIRUBIN,TOTAL 0.6 mg/dL (0.2-1); BLOOD UREA NITROGEN 22 mg/dL (7-18); CALCIUM 7.7 mg/dL (8.5-10.1); CHLORIDE 108 mmol/L (98-107); CO2 25 mmol/L (21-32); CREATININE 1.1 mg/dL (0.55-1.3); GLUCOSE,RANDOM 97 mg/dL (74-106); MAGNESIUM 1.7 mg/dL (1.8-2.4); PHOSPHOROUS 3.2 mg/dL (2.5-4.9); POTASSIUM 3.6 mmol/L (3.5-5.1); SGOT/AST 13 U/L (15-37); SGPT/ALT 8 U/L (13-61); SODIUM 140 mmol/L (136-145); TOT PROT 4.8 g/dl (6.4-8.2)
[2018-10-17] MEDS: LEVOTHYROXINE NA 100 MCG TABLET (FP) PO SCH (06:43)
[2018-10-17] MEDS ORDERED: COD LIVER OIL/ZINC OXIDE PASTE 56 GM TUBE TP PRN (07:16)
[2018-10-17] MEDS ORDERED: ACETAMINOPHEN 1000 MG/100 ML VIAL (NON FORMULARY) IVPB PRN (09:45)
--- NOTE | 2018-10-17 09:45 | PN ---
Teaching Attending Note Name of Resident: Marycruz Ayon ATTENDING PHYSICIAN STATEMENT I saw and evaluated the patient. I reviewed the resident's note and discussed the case with the resident. I agree with the resident's findings and plan as documented with exceptions below. SUBJECTIVE: Patient seen and examined. Denies any abdominal pain or cramps currently. Reports moved her bowels in the diaper this AM, feels better since, no further pain. Denies any nausea, vomiting. Currently denies right leg pain, has intermittent pain at home, with no new fevers,chills or concerns. OBJECTIVE: Vital Signs Period Temp Pulse Resp BP Sys/Toro Pulse Ox Last 24 Hr 97.6 F-97.6 F 65-77 16-18 123-141/74-92 99-100 Intake & Output 10/14/18 10/15/18 10/16/18 10/17/18 23:59 23:59 23:59 23:59 Weight 180 lb 13.313 oz General: sitting in stretcher in no acute distress Chest: Decreased effort, positive air entry, no rales or wheezing Abdomen:soft, normoactive bowel sounds, ND, minimal LLQ tenderness, no visible or irreducible hernia noted on exam Extremities: RLE right knee sinus tract with no active drainage, skin excoration right lateral leg, denuded skin left side, some swelling/erythema right foot, non tender, overall unchanged exam from recent discharge Home Medications Medication Instructions Recorded Zolpidem Tartrate [Ambien] 5 mg PO HS 05/25/17 Sennosides/Docusate Sodium 1 tablet PO BID #30 tablet 05/27/17 [Pericolace -] Levothyroxine Sodium [Synthroid] 100 mcg PO DAILY 06/13/17 Pantoprazole Sodium [Protonix -] 40 mg PO DAILY 06/13/17 Tramadol HCl 50 mg PO DAILY 05/21/18 Docusate Sodium [Colace -] 100 mg PO TID #60 capsule 05/23/18 Metoprolol Succinate [Toprol Xl] 25 mg PO DAILY 10/01/18 Polyethylene Glycol 3350 [Miralax 17 gm PO DAILY 10/01/18 119 gm Btl -] Minocycline HCl 100 mg PO BID #42 tablet 10/07/18 Warfarin Sodium 3 mg PO DAILY #5 tablet 10/07/18 Active Medications Docusate Sodium (Colace -) 100 mg PO DAILY [facility] Last Admin: 10/17/18 01:19 Dose: 100 mg Levothyroxine Sodium (Synthroid -) 100 mcg PO DAILY@0700 [facility] Last Admin: 10/17/18 06:43 Dose: 100 mcg Metoprolol Succinate (Toprol Xl -) 25 mg PO DAILY [facility] Non-Formulary Medication (Minocycline Hcl [Minocycline Hcl]) 100 mg PO BID [facility] Pantoprazole Sodium (Protonix -) 40 mg PO DAILY [facility] Senna (Senna -) 1 tab PO HS [facility] Last Admin: 10/17/18 01:19 Dose: 1 tab Tramadol HCl (Ultram -) 50 mg PO Q6H PRN PRN Reason: PAIN LEVEL 6-10 Zinc Oxide (Desitin Diaper Rash Oint -) 1 applic TP PRN PRN PRN Reason: HYGEINE Laboratory Results - last 24 hr 10/16/18 10/16/18 10/16/18 17:55 17:55 17:55 WBC 11.9 H RBC 4.16 Hgb 11.0 Hct 33.8 D MCV 81.2 MCH 26.5 MCHC 32.6 RDW 18.0 H Plt Count 265 MPV 7.3 L Absolute Neuts (auto) 9.8 H Neutrophils % 82.8 Neutrophils % (Manual) 88.0 H Lymphocytes % 11.6 Lymphocytes % (Manual) 10.0 D Monocytes % 4.7 Monocytes % (Manual) 2 L Eosinophils % 0.5 Basophils % 0.4 Nucleated RBC % 0 Hypochromia 1+ Platelet Estimate Adequate Platelet Comment No clumping noted Anisocytosis 1+ Macrocytosis 1+ PT with INR 24.10 H INR 2.03 H Sodium 136 Potassium 4.8 Chloride 104 Carbon Dioxide 24 Anion Gap 8 BUN 23 H Creatinine 1.2 Creat Clearance w eGFR 42.40 Random Glucose 89 Lactic Acid Calcium 8.4 L Phosphorus Magnesium Total Bilirubin 0.6 AST 28 ALT 13 Alkaline Phosphatase 141 H Troponin I < 0.02 Total Protein 6.4 Albumin 2.4 L Urine Color Urine Appearance Urine pH Ur Specific [place] Urine Protein Urine Glucose (UA) Urine Ketones Urine Blood Urine Nitrite Urine Bilirubin Urine Urobilinogen Ur Leukocyte Esterase Urine WBC (Auto) Urine RBC (Auto) Ur Epithelial Cells Urine Bacteria Urine Mucus Blood Type Antibody Screen 10/16/18 10/16/18 10/16/18 17:55 17:55 21:54 WBC RBC Hgb Hct MCV MCH MCHC RDW Plt Count MPV Absolute Neuts (auto) Neutrophils % Neutrophils % (Manual) Lymphocytes % Lymphocytes % (Manual) Monocytes % Monocytes % (Manual) Eosinophils % Basophils % Nucleated RBC % Hypochromia Platelet Estimate Platelet Comment Anisocytosis Macrocytosis PT with INR INR Sodium Potassium Chloride Carbon Dioxide Anion Gap BUN Creatinine Creat Clearance w eGFR Random Glucose Lactic Acid 1.9 Calcium Phosphorus Magnesium Total Bilirubin AST ALT Alkaline Phosphatase Troponin I Total Protein Albumin Urine Color Ltyellow Urine Appearance Slcloudy Urine pH 6.0 Ur Specific [place] 1.006 L Urine Protein Negative Urine Glucose (UA) Negative Urine Ketones Negative Urine Blood Negative Urine Nitrite Negative Urine Bilirubin Negative Urine Urobilinogen Negative Ur Leukocyte Esterase 3+ H Urine WBC (Auto) 7 Urine RBC (Auto) 1 Ur Epithelial Cells Rare Urine Bacteria Rare Urine Mucus Rare Blood Type A POSITIVE Antibody Screen Negative 10/17/18 10/17/18 05:15 05:15 WBC 9.2 RBC 3.59 L Hgb 9.3 L Hct 28.7 L D MCV 79.9 L MCH 26.0 MCHC 32.5 RDW 17.8 H Plt Count 228 MPV 7.1 L Absolute Neuts (auto) 7.6 Neutrophils % 83.1 H Neutrophils % (Manual) Lymphocytes % 12.4 Lymphocytes % (Manual) Monocytes % 3.3 L Monocytes % (Manual) Eosinophils % 0.2 Basophils % 1.0 Nucleated RBC % 0 Hypochromia Platelet Estimate Platelet Comment Anisocytosis Macrocytosis PT with INR INR Sodium 140 Potassium 3.6 Chloride 108 H Carbon Dioxide 25 Anion Gap 7 L BUN 22 H Creatinine 1.1 Creat Clearance w eGFR 46.88 Random Glucose 97 Lactic Acid Calcium 7.7 L Phosphorus 3.2 Magnesium 1.7 L Total Bilirubin 0.6 AST 13 L ALT 8 L Alkaline Phosphatase 113 Troponin I Total Protein 4.8 L Albumin 1.9 L Urine Color Urine Appearance Urine pH Ur Specific [place] Urine Protein Urine Glucose (UA) Urine Ketones Urine Blood Urine Nitrite Urine Bilirubin Urine Urobilinogen Ur Leukocyte Esterase Urine WBC (Auto) Urine RBC (Auto) Ur Epithelial Cells Urine Bacteria Urine Mucus Blood Type Antibody Screen CT A/P results reviewed ASSESSMENT AND PLAN: 88 yof with PMHx of AFib(on coumadin), HTN, diastolic dysfunction, CAD, angina pectoris, HLD, hypothyroidism, CKD stage II, GERD, significant orthopaedic surgical history, including right hip ORIF in 2012,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 NPO for now till further surgery eval Check Abdominal xray HOld tramadol for now, minimize narcotics. Tylenol IV prn for pain. Resume PO and aggressive bowel regimen pending surgery input Gentle hydration for now Check TSH. Minocycline non formulary, start doxycycline while inhouse. Continue metoprolol/levothyroxine. Hold coumadin till surgical input dVTPPx therapeutic on coumadin. Dispo patient has home service advisor/[facility] and son stays at night, Is ok with her current home arrangements and would prefer to resume the same on dc. Dispo pending clinical improvement in 1-2 days, if no surgical concerns, constipation improved and tolerating diet. Plan discussed with patient in detail, all questions answered.
[2018-10-17] MEDS ORDERED: PATIENT'S OWN MEDICATION (NON-FORMULARY) (Minocycline Hcl [Minocycline Hcl] 100 MG) PO SCH (10:00)
[2018-10-17] MEDS: DOXYCYCLINE HYCLATE 100 MG CAPSULE PO SCH ×2 (10:30→17:28)
[2018-10-17] MEDS: D5-1/2NS+20 MEQ KCL - 20 MEQ/1,000 ML INFUS.BAG IV SCH (10:45)
[2018-10-17] MEDS: metoPROLOL SUCCINATE 25 MG TAB.SR.24H (FP) PO SCH (10:50)
--- NOTE | 2018-10-17 11:21 | PN ---
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
[2018-10-17] MEDS: PANTOPRAZOLE 40 MG TABLET (FP) PO SCH (11:49)
--- NOTE | 2018-10-17 11:57 | EKG ---
Test Reason : Blood Pressure : / mmHG Vent. Rate : 075 BPM Atrial Rate : 077 BPM P-R Int : 000 ms QRS Dur : 092 ms QT Int : 380 ms P-R-T Axes : 000 -08 -24 degrees QTc Int : 424 ms POOR DATA QUALITY, INTERPRETATION MAY BE ADVERSELY AFFECTED ATRIAL FIBRILLATION SEPTAL INFARCT , AGE UNDETERMINED ABNORMAL ECG WHEN COMPARED WITH ECG OF 01-OCT-2018 14:56, ST NOW DEPRESSED IN INFERIOR LEADS NONSPECIFIC T WAVE ABNORMALITY, WORSE IN INFERIOR LEADS Confirmed by ORLIN HARPER, KATLYN ([id number]) on 10/17/2018 11:56:52 AM Referred By: Confirmed By:KATLYN ORDAZ MD
--- NOTE | 2018-10-17 13:52 | CONS ---
INFECTIOUS DISEASE CONSULTATION DATE OF CONSULTATION: DATE OF DICTATION: 10/17/2018 REQUESTED BY: The hospitalist service. HISTORY OF PRESENT ILLNESS: This is an 88-year-old woman, recently hospitalized from October 01 until October 07, with a wound infection of her leg. She was treated during that admission with IV vancomycin and Zosyn. She has a history of infected hardware in that hip with MRSA. She had been on chronic Bactrim prophylaxis which was then switched to minocycline for life-long suppression. She now comes back to the emergency room on October 16 with complaints of abdominal pain, poor appetite at home for 3 days, and constipation. She had not had a bowel movement. She was evaluated in the ER and had a CAT scan of her abdomen and pelvis done that was notable for bilateral inguinal hernias without incarceration and fecal retention. There was no evidence of bowel obstruction. She also had a 4.6-cm abdominal aortic aneurysm. She is currently residing in the ER, n.p.o., awaiting surgical evaluation. Her abdominal pain has resolved. She reports she had a bowel movement overnight. I am asked to see her for her chronic leg wounds. PAST MEDICAL HISTORY: Notable for history of atrial fibrillation, hypertension, diastolic dysfunction, hypothyroidism, CKD, and GERD. 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 She has had multiple right hip surgeries. Originally, in 2012, she had a right hip ORIF, followed by removal of hardware in 2015, and a repair in 2015. Then, she had a tibial fracture and repair in 2017. 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 FAMILY HISTORY: Notable for heart disease. SOCIAL HISTORY: She is a smoker, 1 cigarette a week. She drinks socially. She is nonambulatory. ALLERGIES: She is allergic to LATEX. MEDICATIONS AT HOME: Include Ambien, warfarin, Tramadol, Colace, MiraLAX, Protonix, minocycline, metoprolol, Synthroid, and Colace. REVIEW OF SYSTEMS: She reports her abdominal pain has resolved, she has no fevers or chills, and that she has had a bowel movement. PHYSICAL EXAMINATION: General: She is awake and alert. She is a pleasant woman in no acute distress. Vital Signs: Temperature is 97.6, pulse is 66, blood pressure 160/72, respiratory rate 16. She is saturating 100% on room air. HEENT: She is normocephalic. Her eyes are anicteric. Neck: Supple. Lungs: Clear to auscultation. Heart: Regular rate and rhythm. Abdomen: Soft. It is nontender. Extremities: The right leg is abnormally short. It is on its side. She is unable to straighten it. The sinus tract is currently dry. There is no drainage. Her lower leg, she has the side that has the pressure from the angle at which she rests her leg, she has an area of denuded skin almost which is dry. There is no drainage. There is no erythema. LABORATORY DATA: Labs are notable for a white count of 9.2, hemoglobin 9.3, platelets are 228. BUN and creatinine are 22 and . ASSESSMENT AND PLAN: 1. In summary, this is an 88-year-old woman, admitted for abdominal symptoms, who I am asked to see regarding her chronic abdominal wound. From the standpoint of the wound, it appears stable. I would continue doxycycline in the hospital and renew minocycline at discharge as per prior discharge plans. 2. Abdominal pain, which appears to be resolved. She is to be seen by Surgery, before resuming diet. 3. 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 On chronic antibiotic suppression. SMITA MOSER M.D. [id number]
--- NOTE | 2018-10-17 14:38 | PN ---
Physical Exam: SUBJECTIVE: Patient seen and examined by me at bedside. Brought here overnight for poor oral intake associated with abdominal cramps and no BM for 2-3 days. Patient currently reports no abdominal pain and states she had a bowel movement this morning Otherwise, denies any fever, chills, nausea, chest pain, palpitations, shortness of breath, headaches, urinary symptoms, dizziness. OBJECTIVE: Vital Signs Period Temp Pulse Resp BP Sys/Toro Pulse Ox Last 24 Hr 97.6 F-97.6 F 65-77 16-18 123-160/72-92 99-100 GENERAL: Awake, alert, in no acute distress. EYES: Sclera anicteric, conjunctiva clear. ENT: Oropharynx clear without exudates. Moist mucous membranes. LUNGS: Breath sounds equal, clear to auscultation bilaterally. No wheezes, and no crackles. No accessory muscle use. HEART: irregularly irregular rhythm with regular rate, normal s1 and s2 ABDOMEN: Soft, mild tenderness upon palpation of LLQ, not distended, normoactive bowel sounds. LOWER EXTREMITIES: RLE (+) multiple excoriating wound ulcers with extensive erythema and scaly skin over the lateral aspect of the leg exteding to the knees. No discharge but some foul smelling. (+) faint DP/PT pulses LLE: 2+ DP/PT pulses NEUROLOGICAL: No focal deficits Laboratory Results 10/17/18 05:15 10/17/18 05:15 10/17/18 05:15 Phosphorus 3.2 Magnesium 1.7 L Total Bilirubin 0.6 AST 13 L ALT 8 L Alkaline Phosphatase 113 TSH 2.79 Active Medications Generic Name Dose Route Start Last Admin Trade Name Jayme PRN Reason Stop Dose Admin Acetaminophen 1,000 mg 10/17/18 09:45 Ofirmev Injection - IVPB Q6H PRN PAIN LEVEL 6-10 Docusate Sodium 100 mg 10/17/18 00:31 10/17/18 10:30 Colace - PO 100 mg DAILY EUGENE Administration Doxycycline Hyclate 100 mg 10/17/18 10:00 10/17/18 10:30 Vibramycin - PO 100 mg BID@1000,1800 EUGENE Administration Potassium Chloride/Dextrose/Sod Cl 20 meq in 1,000 mls @ 75 mls/hr 10/17/18 10 :00 10/17/18 10:45 D5-1/2ns+20 Meq Kcl - IV 75 mls/hr ASDIR EUGENE Administration Levothyroxine Sodium 100 mcg 10/17/18 07:00 10/17/18 06:43 Synthroid - PO 100 mcg DAILY@0700 EUGENE Administration Metoprolol Succinate 25 mg 10/17/18 10:00 10/17/18 10:50 Toprol Xl - PO 25 mg DAILY EUGENE Administration Pantoprazole Sodium 40 mg 10/17/18 10:00 10/17/18 11:49 Protonix - PO 40 mg DAILY EUGENE Administration Polyethylene Glycol 17 gm 10/17/18 14:00 Miralax (For Daily Use) - PO BID EUGENE Senna 1 tab 10/17/18 00:31 10/17/18 01:19 Senna - PO 1 tab HS EUGENE Administration Zinc Oxide 1 applic 10/17/18 07:16 Desitin Diaper Rash Oint - TP PRN PRN HYGEINE ASSESSMENT/PLAN: Patient is an 88 year old female who presented with poor appetite, oral intake, abdominal cramps with LLQ pain and constipation with no bowel movements for three days. Patient was found to have hernia on CT abdomen and admitted for further evaluation by surgery. Abdominal Pain -Likely secondary to constipation. Low suspicion for strangulated inguinal hernia -Seen by Surgery who do not recommend surgery and to give po trial and advance as tolerated -Repeat Abdominal X-Ray revealed no obstruction -Bowel regimen ordered with Colace 100mg daily, Miralax 17g BID, and Senna 1 tab HS. -Patient already with 2 bowel movements today -Tylenol 650mg Q6H PO PRN -TSH wnl -If patient tolerates her regular diet. May discharge in the morning Elevated BUN -Likely secondary from dehydration -IV Fluids with D5-1/2NS@75mls/hr -Continue to monitor BMP Chronic RLE Cellulitis -Patient on on lifelong suppressive treatment with Minocycline at home, which is not offered here at the hospital. Will give Doxycycline 100mg BID PO and may resume Minocycline once discharged -isolation precautions (h/o MRSA) -Continue current dressing change Atrial Fibrillation -Continue home dose Coumadin 3mg -Continue Metoprolol 25 mg PO QD GERD -Protonix 40 mg PO QD CKD Stage II -at baseline -encourage PO hydration Hypothyroidism -Continue home med Levothyroxine 100 mg PO QD Constipation -Continue bowel regimen with Miralax, colace, and senna Prophylaxis -Warfarin 3mg for DVT -Protonix 40 mg PO QD for GI FEN -IV D5-1/2NS@75mls/hr -Hypomagnesemia, hypokalemia. Replete and repeat -Clear diet Disposition -full code -If tolerates PO, may be discharged tomorrow morning. Marycruz Ayon [id number] Visit type - Emergency Visit Emergency Visit: Yes ED Registration Date: 10/16/18 Care time: The patient presented to the Emergency Department on the above date and was hospitalized for further evaluation of their emergent condition. - New Patient This patient is new to me today: Yes Date on this admission: 10/17/18 - Critical Care Critical Care patient: No
--- NOTE | 2018-10-17 15:07 | CONSULT ---
Consult Consult Specialty:: General Surgery Referred by:: Gloria Kennedy Reason for Consultation:: possible incarcerated left inguinal hernia - History of Present Illness Chief Complaint: LLQ pain with lump, constipation, anorexia History of Present Illness: 88yo F with multiple medical problems including afib on coumadin and chronic RLE hardware infection on antibiotic suppression, presented from home to ER with LLQ pain, associated lump, and constipation (more than usual) with decreased appetite/po intake for last couple days. She denies subjective fever/ chills, urinary symptoms, or previously noting left groin lump. In ER, CT showed inguinal hernias, left side with sigmoid colon with stool in it, and she was placed in supine position, given pain medication, and reduction of left inguinal hernia attempted without success; but then cold pack was placed over it , and per pt the lump "went away" some time after. Surgery was asked to evaluate. She was given laxatives, and this morning was able to have a bowel movement, and her pain has essentially resolved. She is now hungry for maybe some soup, and feels she might be able to go again. She has chronic issues with constipation and is on chronic bowel regimen, as well as tramadol/opioids. She has been nonambulatory secondary to RLE issues. She is seen and examined in ER on stretcher, and is able to cooperate with exam, including rectal. - History Source History Provided By: Patient Limitations to Obtaining History: No Limitations - Past Medical History Cardio/Vascular: Yes: AFIB, Aneurysm, CHF, HTN Gastrointestinal: Yes: Constipation Renal/: Yes: Renal Inusuff Reproductive: Yes: Postmenopausal Infectious Disease: Yes: MRSA, Other (chronic hardware infection right leg) Musculoskeletal: Yes: Chronic low back pain, Osteoarthritis Endocrine: Yes: Hypothyroidism - Past Surgical History Past Surgical History: Yes: Joint Replacement (R hip with revision, R knee surgery, tib-fib - chronic hardware infection) Additional Surgical History: multiple right leg surgeries, no abdominal surgery - Alcohol/Substance Use Hx Alcohol Use: Yes (occasional) History of Substance Use: reports: None - Smoking History Smoking history: Current some day smoker Have you smoked in the past 12 months: Yes Aproximately how many cigarettes per day: 1 (about 1 cig/week) - Social History ADL: Family Assistance History of Recent Travel: No Home Medications - Allergies Allergies/Adverse Reactions: Allergies Allergy/AdvReac Type Severity Reaction Status Date / Time latex Allergy Intermediate Itching Verified 05/25/17 16:48 AND RASH - Home Medications Home Medications: Ambulatory Orders Zolpidem Tartrate [Ambien] 5 mg PO HS 05/25/17 Sennosides/Docusate Sodium [Pericolace -] 1 tablet PO BID #30 tablet 05/27/17 Levothyroxine Sodium [Synthroid] 100 mcg PO DAILY 06/13/17 Pantoprazole Sodium [Protonix -] 40 mg PO DAILY 06/13/17 Tramadol HCl 50 mg PO DAILY 05/21/18 Docusate Sodium [Colace -] 100 mg PO TID #60 capsule 05/23/18 Metoprolol Succinate [Toprol Xl] 25 mg PO DAILY 10/01/18 Polyethylene Glycol 3350 [Miralax 119 gm Btl -] 17 gm PO DAILY 10/01/18 Minocycline HCl 100 mg PO BID #42 tablet 10/07/18 Warfarin Sodium 3 mg PO DAILY #5 tablet 10/07/18 Family Disease History - Family Disease History Family Disease History: Heart Disease: Mother Review of Systems - Review of Systems Constitutional: reports: Loss of Appetite. denies: Chills, Fever Eyes: reports: Other (uses glasses). denies: Recent Change in Vision HENT: reports: Hearing Loss. denies: Difficult Swallowing, Throat Pain Neck: denies: Swollen Glands, Tenderness Cardiovascular: denies: Chest Pain, Palpitations Respiratory: denies: Cough, SOB Gastrointestinal: reports: Abdominal Pain (with hpi), Constipation. denies: Diarrhea, Indigestion, Nausea, Vomiting Genitourinary: denies: Burning, Dysuria Musculoskeletal: reports: Joint Pain (right leg/knee). denies: Back Pain, Muscle Pain Integumentary: reports: Wound (chronic R leg). denies: Change in Color, Rash Neurological: reports: Other (nonambulatory). denies: Dizziness, Headache Psychiatric: denies: Anxiety, Depression Physical Exam Vital Signs: Vital Signs Temperature 97.6 F 10/16/18 16:46 Pulse Rate 66 10/17/18 11:08 Respiratory Rate 16 10/17/18 11:08 Blood Pressure 160/72 10/17/18 11:08 O2 Sat by Pulse Oximetry (%) 100 10/17/18 11:08 Constitutional: Yes: No Distress, Calm, Obese Eyes: Yes: Conjunctiva Clear, EOM Intact HENT: Yes: Atraumatic, Normocephalic Neck: Yes: Supple, Trachea Midline Cardiovascular: Yes: Pulse Irregular, Murmur. No: Bradycardia, Tachycardia Respiratory: Yes: Regular, CTA Bilaterally Gastrointestinal: Yes: Normal Bowel Sounds, Soft, Abdomen, Obese, Hernia (right side difficult to appreciate (small, fat-containing on CT); left inguinal already reduced at time of exam, impulse appreciated at ring on cough, minimal tenderness over ring, no skin changes). No: Tenderness (no sig abdominal tenderness) ...Rectal Exam: Yes: Sphincter Tone Normal, Other (very soft, mushy brown stool in vault) Renal/: No: CVA Tenderness - Left, CVA Tenderness - Right Musculoskeletal: Yes: Joint Stiffness (right knee). No: Back Pain Extremities: Yes: External Rotation (right leg), Other (dressing on RLE not examined). No: Cool, Cyanosis Edema: No Peripheral Pulses WNL: Yes Integumentary: Yes: Other (RLE with dressing). No: Jaundice, Rash Neurological: Yes: Alert, Oriented Psychiatric: Yes: Alert, Oriented Labs: CBC, BMP 10/17/18 05:15 10/17/18 05:15 CMP Sodium 140 mmol/L (136-145) 10/17/18 05:15 Potassium 3.6 mmol/L (3.5-5.1) 10/17/18 05:15 Chloride 108 mmol/L (98-107) H 10/17/18 05:15 Carbon Dioxide 25 mmol/L (21-32) 10/17/18 05:15 Anion Gap 7 MMOL/L (8-16) L 10/17/18 05:15 BUN 22 mg/dL (7-18) H 10/17/18 05:15 Creatinine 1.1 mg/dL (0.55-1.3) 10/17/18 05:15 Creat Clearance w eGFR 46.88 (>60) 10/17/18 05:15 Random Glucose 97 mg/dL (74-106) 10/17/18 05:15 Lactic Acid 1.9 mmol/L (0.4-2.0) 10/16/18 17:55 Calcium 7.7 mg/dL (8.5-10.1) L 10/17/18 05:15 Phosphorus 3.2 mg/dL (2.5-4.9) 10/17/18 05:15 Magnesium 1.7 mg/dL (1.8-2.4) L 10/17/18 05:15 Total Bilirubin 0.6 mg/dL (0.2-1) 10/17/18 05:15 AST 13 U/L (15-37) L 10/17/18 05:15 ALT 8 U/L (13-61) L 10/17/18 05:15 Alkaline Phosphatase 113 U/L (45-117) 10/17/18 05:15 Troponin I < 0.02 ng/ml (0.00-0.05) 10/16/18 17:55 Total Protein 4.8 g/dl (6.4-8.2) L 10/17/18 05:15 Albumin 1.9 g/dl (3.4-5.0) L 10/17/18 05:15 TSH 2.79 uIU/ml (0.358-3.74) 10/17/18 05:15 INR, PTT INR 2.03 (0.83-1.09) H 10/16/18 17:55 Urine Test Results Urine Color Ltyellow 10/16/18 21:54 Urine Appearance Slcloudy 10/16/18 21:54 Urine pH 6.0 (5.0-8.0) 10/16/18 21:54 Ur Specific Mobile 1.006 (1.010-1.035) L 10/16/18 21:54 Urine Protein Negative (NEGATIVE) 10/16/18 21:54 Urine Glucose (UA) Negative (NEGATIVE) 10/16/18 21:54 Urine Ketones Negative (NEGATIVE) 10/16/18 21:54 Urine Blood Negative (NEGATIVE) 10/16/18 21:54 Urine Nitrite Negative (NEGATIVE) 10/16/18 21:54 Urine Bilirubin Negative (<2.0 mg/dL) 10/16/18 21:54 Ur Leukocyte Esterase 3+ (NEGATIVE) H 10/16/18 21:54 Ur Epithelial Cells Rare /HPF (FEW) 10/16/18 21:54 Urine Bacteria Rare /hpf (NONE SEEN) 10/16/18 21:54 Urine Mucus Rare 10/16/18 21:54 wbc down from 11.9 Hb hydrated down from 11 Imaging - Results X-ray: Pending Cat Scan: Report Reviewed, Image Reviewed (images reviewed - small RIH with fat , LIH with portion of sigmoid colon with stool in it, no apparent obstructive signs, stool throughout colon, no free air or fluid) Problem List - Problems (1) Bilateral inguinal hernia without obstruction or gangrene Assessment/Plan: bilateral inguinal hernias, right small with only fat, asymptomatic left with small portion of sigmoid, but per pt reduced spontaneously after cold pack and supine positioning last night currently reduced and minimally tender in region pt has had BM and feels like she could go more chronic constipation with very soft stool - may benefit from more formed stool to evacuate (less softener, more motility agents) would resume po - clears and advance as tolerated continue bowel regimen with emphasis on dulcolax/senna to encourage colon motility and emptying the more she strains at stool (even soft/mushy), the more likely the hernia will come/stay out as long as it is reducible, would leave it alone no indication for surgical repair at this time pt with significant comorbidities that make her a poor candidate for hernia repair except in case of life-threatening emergency (strangulation, bowel obstruction, perforation) Thank you for the opportunity to participate in the care of this patient. will sign off Code(s): K40.20 - BI INGUINAL HERNIA, W/O OBST OR GANGRENE, NOT SPCF RECUR Qualifiers: Recurrence: non-recurrent Qualified Code(s): K40.20 - Bilateral inguinal hernia, without obstruction or gangrene, not specified as recurrent (2) LLQ pain Code(s): R10.32 - LEFT LOWER QUADRANT PAIN (3) Atrial fibrillation Assessment/Plan: therapeutic INR on coumadin Code(s): I48.91 - UNSPECIFIED ATRIAL FIBRILLATION Qualifiers: Atrial fibrillation type: chronic Qualified Code(s): I48.2 - Chronic atrial fibrillation (4) long term care phlebotomist current use of anticoagulant Code(s): Z79.01 - MUSIC PRODUCER (CURRENT) USE OF ANTICOAGULANTS (5) HTN (hypertension) Code(s): I10 - ESSENTIAL (PRIMARY) HYPERTENSION Qualifiers: Hypertension type: essential hypertension Qualified Code(s): I10 - Essential (primary) hypertension (6) Abdominal aortic aneurysm Code(s): I71.4 - ABDOMINAL AORTIC ANEURYSM, WITHOUT RUPTURE Qualifiers: Presence of rupture: without rupture Qualified Code(s): I71.4 - Abdominal aortic aneurysm, without rupture (7) Chronic osteomyelitis Code(s): M86.60 - OTHER CHRONIC OSTEOMYELITIS, UNSPECIFIED SITE (8) Infected hardware in right leg Code(s): T84.7XXA - INFECT/INFLM REACT DUE TO OTH INT ORTH PROSTH DEV/GRFT, INIT Qualifiers: Encounter type: sequela Qualified Code(s): T84.7XXS - Infection and inflammatory reaction due to other internal orthopedic prosthetic devices, implants and grafts, sequela
[2018-10-17] MEDS ORDERED: ACETAMINOPHEN 325 MG TABLET (FP) PO PRN (15:17)
[2018-10-17] MEDS: POLYETHYLENE GLYCOL 3350 119 GM BTL PO SCH ×2 (17:27→22:03)
[2018-10-17] MEDS ORDERED: WARFARIN NA 3 MG TABLET PO SCH (18:00)
[2018-10-17 19:04] LABS: INR 2.51 (0.83-1.09); PROTHROMBIN TIME (PATIENT) 29.9 SEC (9.7-13.0)
[2018-10-17] MEDS ORDERED: ZOLPIDEM TARTRATE 5 MG TABLET PO PRN (22:00)
[2018-10-18] MEDS: D5-1/2NS+20 MEQ KCL - 20 MEQ/1,000 ML INFUS.BAG IV SCH ×2 (01:36→10:12)
[2018-10-18] MEDS: LEVOTHYROXINE NA 100 MCG TABLET (FP) PO SCH (06:07)
[2018-10-18 07:28] LABS: HEMATOCRIT 26.1 % (32.4-45.2); HEMOGLOBIN 8.4 GM/dL (10.7-15.3); MCH 26.1 pg (25.7-33.7); MCHC 32.3 g/dl (32.0-36.0); MEAN CELL VOLUME 80.9 fl (80-96); MEAN PLT VOLUME 7.1 fl (7.5-11.1); PLATELET COUNT 205 K/MM3 (134-434); RBC 3.23 M/mm3 (3.60-5.2); RDW 18.2 % (11.6-15.6); WHITE BLOOD COUNT 5.9 K/mm3 (4.0-10.0)
[2018-10-18 08:29] LABS: ALBUMIN 1.7 g/dl (3.4-5.0); ALK PHOS 101 U/L (45-117); ANION GAP 7 MMOL/L (8-16); BILIRUBIN,TOTAL 0.4 mg/dL (0.2-1); BLOOD UREA NITROGEN 17 mg/dL (7-18); CALCIUM 7.7 mg/dL (8.5-10.1); CHLORIDE 110 mmol/L (98-107); CO2 24 mmol/L (21-32); CREATININE 1.1 mg/dL (0.55-1.3); GLUCOSE,RANDOM 85 mg/dL (74-106); MAGNESIUM 1.8 mg/dL (1.8-2.4); PHOSPHOROUS 2.4 mg/dL (2.5-4.9); POTASSIUM 3.5 mmol/L (3.5-5.1); SGOT/AST 15 U/L (15-37); SGPT/ALT 7 U/L (13-61); SODIUM 141 mmol/L (136-145); TOT PROT 4.4 g/dl (6.4-8.2)
[2018-10-18] MEDS ORDERED: NAPH,MB-DB/K PH,MBDB POWDER PACKET PO SCH (10:00)
[2018-10-18] MEDS: metoPROLOL SUCCINATE 25 MG TAB.SR.24H (FP) PO SCH (10:10)
[2018-10-18] MEDS: PANTOPRAZOLE 40 MG TABLET (FP) PO SCH (10:10)
[2018-10-18] MEDS: DOXYCYCLINE HYCLATE 100 MG CAPSULE PO SCH (10:10)
[2018-10-18] MEDS: DOCUSATE SODIUM 100 MG CAPSULE (FP) PO SCH (10:10)
[2018-10-18] MEDS: POLYETHYLENE GLYCOL 3350 119 GM BTL PO SCH (10:11)
--- NOTE | 2018-10-18 12:02 | DS ---
Physical Exam: SUBJECTIVE: Patient seen and examined, no further abdominal pain, moved her bowels yesterday. Tolerating diet well. OBJECTIVE: Vital Signs Period Temp Pulse Resp BP Sys/Toro Pulse Ox Last 24 Hr 97.4 F-98.8 F 58-84 18-20 142-152/70-96 100 PHYSICAL EXAM GENERAL: The patient is awake, alert, and fully oriented, in no acute distress. HEAD: Normal with no signs of trauma. EYES: PERRL, extraocular movements intact, sclera anicteric, conjunctiva clear. ENT: Ears normal, nares patent, oropharynx clear without exudates, moist mucous membranes. NECK: Trachea midline, full range of motion, supple. LUNGS: Breath sounds equal, clear to auscultation bilaterally, no wheezes, no crackles, no accessory muscle use. Abdomen:soft, normoactive bowel sounds, ND,non tender throughout, no voluntary or involuntary guarding or rigidity, no visible or irreducible hernia noted on exam Extremities: RLE right knee sinus tract with no active drainage, skin excoration right lateral leg, denuded skin left side, some swelling/erythema right foot, non tender, overall unchanged exam from recent discharge HEART: Regular rate and rhythm, S1, S2 PSYCH: Normal mood, normal affect. SKIN: Warm, dry, normal turgor, no rashes or lesions noted. LABS Laboratory Results - last 24 hr 10/17/18 10/17/18 10/18/18 05:15 17:00 06:00 WBC 5.9 RBC 3.23 L Hgb 8.4 L Hct 26.1 L MCV 80.9 MCH 26.1 MCHC 32.3 RDW 18.2 H Plt Count 205 MPV 7.1 L PT with INR 29.90 H INR 2.51 H Sodium 140 Potassium 3.6 Chloride 108 H Carbon Dioxide 25 Anion Gap 7 L BUN 22 H Creatinine 1.1 Creat Clearance w eGFR 46.88 Random Glucose 97 Calcium 7.7 L Phosphorus 3.2 Magnesium 1.7 L Total Bilirubin 0.6 AST 13 L ALT 8 L Alkaline Phosphatase 113 Total Protein 4.8 L Albumin 1.9 L TSH 2.79 10/18/18 06:00 WBC RBC Hgb Hct MCV MCH MCHC RDW Plt Count MPV PT with INR INR Sodium 141 Potassium 3.5 Chloride 110 H Carbon Dioxide 24 Anion Gap 7 L BUN 17 Creatinine 1.1 Creat Clearance w eGFR 46.88 Random Glucose 85 Calcium 7.7 L Phosphorus 2.4 L Magnesium 1.8 Total Bilirubin 0.4 AST 15 ALT 7 L Alkaline Phosphatase 101 Total Protein 4.4 L Albumin 1.[address] A/P - The study is markedly limited without the use of any contrast material. The lung bases are clear. The heart is enlarged. The liver, spleen, pancreas, adrenal glands and kidneys demonstrate no gross abnormalities. The gallbladder is clear. There is no evidence of intra-abdominal or retroperitoneal lymphadenopathy or fluid collections. There is focal aneurysmal dilatation of the distal abdominal aorta with widest AP diameter measuring approximately 4.6 cm. Extensive atherosclerotic calcification is noted throughout the aorta and its branches. There is no evidence of pneumoperitoneum , bowel obstruction or intra-abdominal abscess. There is no CT evidence of acute appendicitis or diverticulitis. Examination of the pelvis is further limited due to extensive artifact from the patient's total right hip replacement. There is no gross evidence of pelvic masses, fluid collections or lymphadenopathy. There are bilateral inguinal hernias. The left sided hernia contains a portion of the sigmoid colon and a trace amount of free fluid. There is no evidence of bowel obstruction related to the hernia. The right-sided hernia is fat containing. There is a moderate amount of retained fecal material throughout the colon. There is no evidence of acute bony pathology. IMPRESSION: 1. 4.6 cm focal AAA. 2. Bilateral inguinal hernias with the left sided hernia containing a portion of the sigmoid colon and trace free fluid. 3. Markedly limited study with fecal retention and no evidence of acute pathology within the abdomen or pelvis. Please see above discussion. HOSPITAL COURSE: Date of Admission:10/16/18 Date of Discharge: 10/18/18 Minutes to complete discharge: 37 Discharge Summary Reason For Visit: IRREDUCTIBLE LEFT INGUINAL HERNIA ABDOMINAL AORTIC Current Active Problems Abdominal pain (Acute) Bilateral inguinal hernia without obstruction or gangrene (Acute) Chronic infection of prosthetic hip (Acute) Irreducible left inguinal hernia (Acute) LLQ pain (Acute) termite control servicer current use of anticoagulant (Acute) Abdominal aortic aneurysm (Chronic) Hospital Course: 88 yof with PMHx of AFib(on coumadin), HTN, diastolic dysfunction, CAD, angina pectoris, HLD, hypothyroidism, CKD stage II, GERD, significant orthopaedic surgical history, including right hip ORIF in 2012,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 scan A/p was done with results as above. She was continued on bowel regimen, she had bowel movement with resolution of her pain. She was seen by surgical and felt with reducible inguinal hernia with no concerns. Her diet was advanced and she is tolerating solid diet well with no concerns. patient and son were counseled on need for high fiber diet and aggressive bowel regimen to avoid similar concerns in the future. She is on chronic minocycline suppression for RLE wound and seen by infectious disease with no new concerns. She was also noted with 4.6 cm AAA and advised outpatient follow up. Condition: Good - Instructions Diet, Activity, Other Instructions: You were admitted with belly pain. You were seen by surgeon and no concerns were noted with your hernia. You were constipated and your symptoms resolved after moving your bowels. You are advised high fiber diet and continue with aggressive bowel regimen on discharge. MEDICATIONS: Continue all your medications as before including minocyline and coumadin. You are given Neutra-phos packets. Take 2 packets twice daily for 2 more doses ( Total 4 packets starting tonight) (prescription has been provided) DIET: High fiber diet, Bowel regimen and laxatives to ensure 1 bowel movement in 2-3 days WOUND CARE: Continue wound care as instructed on recent discharge. FOLLOW UP; Continue with all your follow up as including wound care center, orthopedic and Dr. Ceron as discussed on recent discharge. You were incidentally found with 4.6 cm Abdominal Aortic aneurysm (AAA), which will need monitoring with your doctor. Strongly encourage to taper off narcotic medications as they can increase risk for constipation. If you notice any new or severe belly pain, inablity to eat, or any new concerns , please call 911 or come to ED Referrals: Jason Lacey MD [Staff Physician] - Khalif Ceron MD [Primary Care Provider] - Disposition: VNS/HOME HEALTH CARE - Home Medications Comprehensive Discharge Medication List: Ambulatory Orders Zolpidem Tartrate [Ambien] 5 mg PO HS 05/25/17 Sennosides/Docusate Sodium [Pericolace -] 1 tablet PO BID #30 tablet 05/27/17 Levothyroxine Sodium [Synthroid] 100 mcg PO DAILY 06/13/17 Pantoprazole Sodium [Protonix -] 40 mg PO DAILY 06/13/17 Tramadol HCl 50 mg PO DAILY 05/21/18 Docusate Sodium [Colace -] 100 mg PO TID #60 capsule 05/23/18 Metoprolol Succinate [Toprol Xl] 25 mg PO DAILY 10/01/18 Polyethylene Glycol 3350 [Miralax 119 gm Btl -] 17 gm PO DAILY 10/01/18 Minocycline HCl 100 mg PO BID #42 tablet 10/07/18 Warfarin Sodium 3 mg PO DAILY #5 tablet 10/07/18 Acetaminophen [Tylenol .Regular Strength -] 650 mg PO Q6H PRN tablet 10/18/18 Naph,Mb-Db/K pH,Mbdb [PHOS-NaK PACKET -] 2 packet PO BID 1 Days #4 pow 10/18/18 This patient is new to me today: No Emergency Visit: Yes ED Registration Date: 10/16/18 Care time: The patient presented to the Emergency Department on the above date and was hospitalized for further evaluation of their emergent condition. Critical Care patient: No - Discharge Referral Referred to [facility] No
[2018-10-18 13:11] VITALS: BMI 29.0
[2018-10-18 14:19] VITALS: BP 140/69; PULSE 61; TEMP 98.3
== END 2018-10-18 14:49 | disposition home health service (06) | DRG 394 ==
LOC: JER 15:56 → JERBED 23:24 → J8W 10-17 15:41
PROVIDERS: ADMIT Internal Medicine; ATTEND Hospitalist
DX: K40.20 Bilateral inguinal hernia, without obstruction or gangrene, not specified as recurrent (principal); L03.115 Cellulitis of right lower limb; M86.60 Other chronic osteomyelitis, unspecified site; Z79.01 Long term (current) use of anticoagulants; E03.9 Hypothyroidism, unspecified; K21.9 Gastro-esophageal reflux disease without esophagitis; I12.9 Hypertensive chronic kidney disease with stage 1 through stage 4 chronic kidney disease, or unspecified chronic kidney disease; K40.90 Unilateral inguinal hernia, without obstruction or gangrene, not specified as recurrent; R62.7 Adult failure to thrive; E88.09 Other disorders of plasma-protein metabolism, not elsewhere classified; E87.6 Hypokalemia; E83.42 Hypomagnesemia; E83.39 Other disorders of phosphorus metabolism; E86.0 Dehydration; I25.10 Atherosclerotic heart disease of native coronary artery without angina pectoris; N18.2 Chronic kidney disease, stage 2 (mild); I71.4 Abdominal aortic aneurysm, without rupture; B95.62 Methicillin resistant Staphylococcus aureus infection as the cause of diseases classified elsewhere; K59.00 Constipation, unspecified; E66.9 Obesity, unspecified; I48.2 Chronic atrial fibrillation; Z68.29 Body mass index [BMI] 29.0-29.9, adult
CPT/HCPCS: 36415; 71045-TC-FY; 74019-TC-FY; 74176-TC; 80053; 81003; 81015; 83605; 83735; 84100; 84443; 84484; 85025; 85027; 85610; 86850; 86900; 86901; 87040; 87086; 93005; 93010; 99284-25; J0131; J7030